=== PATIENT | female | born 1985 | race Caucasian/White ===

== ENCOUNTER 2016-04-19 10:00 | Inpatient (IN) | payer MEDICAID, OTHER ==
[2016-04-13 12:44] VITALS: BMI 28.8
--- NOTE | 2016-04-18 14:21 | P.HPOB ---
History of Present Illness H&P Date: 04/18/16 Chief Complaint: Scheduled repeat section with tubal ligation This is a 31-year-old female 3 para 2 with an estimated date of confinement of 04/25/2016, estimated gestational age of 39 and one sevenths weeks, who presents to labor and delivery for scheduled repeat section with bilateral partial salpingectomy for family planning. She has been feeling good movement. She has been feeling frequent contractions. Her has been complicated by dizziness and shortness of breath. 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 She did have an elevated 1 hour Glucola but her 3 hour Glucola was within normal limits. She has been following a diabetic diet anyways due to low blood sugars. labs: GC/Chlamydia-negative HIV-nonreactive Syphilis antibody-nonreactive blood type-O+ Antibody screen-negative Random glucose-86 Hemoglobin-13.6 One hour Glucola-147 Three-hour Glucola-within normal limits Group B streptococcus-negative Obstetrical history: . History of 2 previous sections. Her first section was at term due to failed induction. Her second section was due to twins. She delivered her second at 35 weeks. Gynecologic history: No history of sexual transmitted diseases. Social history: She is . She works part-time at [employer] Review of Systems Cardiovascular: Reports dyspnea on exertion, Reports lightheadedness, Reports palpitations, Reports shortness of breath Respiratory: Reports dyspnea Gastrointestinal: Reports abdominal pain (Contractions) Genitourinary: Reports pelvic pain, Reports Past Medical History Past Medical History: Asthma, GERD/Reflux Additional Past Medical History / Comment(s): Endometriosis, iron deficiency anemia, frequent UTIs History of Any Multi-Drug Resistant Organisms: None Reported Past Surgical History: Section (2), Cholecystectomy Additional Past Surgical History / Comment(s): LAPAROSCOPY X2, EGD, LEEP procedure Past Anesthesia/Blood Transfusion Reactions: Motion Sickness, Postoperative Nausea & Vomiting (PONV) Past Psychological History: No Psychological Hx Reported Smoking Status: Never smoker Past Alcohol Use History: None Reported Past Drug Use History: None Reported - Past Family History Mother Family Medical History: Hypertension Medications and Allergies Home Medications Medication Instructions Recorded Confirmed Type Cholecalciferol [Vitamin D3] 2,000 unit PO HS 06/19/15 04/13/16 History Ferrous Sulfate [Iron (65 MG 325 mg PO HS 06/19/15 04/13/16 History Elemental)] Pnv with Ca,No.72/Iron/FA [Pnv 1 tab PO HS 10/30/15 04/13/16 History Plus Multivit Tab] Albuterol Inhaler [Ventolin Hfa 1 - 2 puff INHALATION RT-Q6H PRN 12/23/15 History Inhaler] Allergies Allergy/AdvReac Type Severity Reaction Status Date / Time amoxicillin trihydrate Allergy Rash/Hives Verified 04/13/16 12:40 [From Augmentin] cefaclor [From Ceclor] Allergy Rash/Hives Verified 04/13/16 12:40 latex Allergy Rash/Hives Verified 04/13/16 12:40 nitrofurantoin Allergy Rash/Hives Verified 04/13/16 12:40 [From Macrobid] nitrofurantoin Allergy Rash/Hives Verified 04/13/16 12:40 macrocrystalline [From Macrobid] potassium clavulanate Allergy Rash/Hives Verified 04/13/16 12:40 [From Augmentin] Sulfa (Sulfonamide Allergy Rash/Hives Verified 04/13/16 12:40 Antibiotics) Exam Osteopathic Statement: *. No significant issues noted on an osteopathic structural exam other than those noted in the History and Physical/Consult. HEENT: Within normal limits Heart: Regular rate and rhythm Lungs: Clear to auscultation bilaterally Abdomen: Cervix: Closed/70%/out of pelvis heart tones: 140s by Doppler Extremities: Negative Homans Assessment and Plan (1) 39 weeks gestation of Status: Acute (2) Previous delivery affecting Status: Acute (3) Family planning Status: Acute Plan: Proceed with repeat low transverse section with bilateral partial salpingectomy. I have discussed the risks, benefits, and alternative therapies for the above- mentioned procedure and for both sedation/anesthesia as well as necessary blood products administration, if indicated, as they pertain to this patient. The patient has indicated her understanding and acceptance of the risks and procedures discussed.
[2016-04-19] MEDS ORDERED: CITRIC ACID-SODIUM CITRATE 15 ML CUP PO ONE (10:05)
[2016-04-19] MEDS ORDERED: LACTATED RINGERS 1,000 ML IV ONE (10:05)
[2016-04-19] MEDS ORDERED: CLINDAMYCIN 900 MG in DEXTROSE 5% IN WATER 50 ML IVPB STA ×2 (10:05)
[2016-04-19] MEDS ORDERED: LIDOCAINE 1% 20 ML VIAL (10MG/ML) FOR IV START INTRADERMA PRN (10:05)
[2016-04-19 10:51] LABS: Basophils % (A) 0 %; CH 34.9; CHCM 36.5; Eosinophils % (A) 1 %; HCT 39.5 % (34.0-46.0); HDW 3.13; HGB 13.7 gm/dL (11.4-16.0); Large Platelets Flag Moderate; Luc # (Auto) 0.16; Luc % (Auto) 2; Lymphocytes # (A) 1.3 k/uL (1.0-4.8); Lymphocytes % (A) 19 %; MCH 33.3 pg (25.0-35.0); MCHC 34.6 g/dL (31.0-37.0); MCV 96.2 fL (80.0-100.0); Mean Platelet Volume 10.8; Monocytes # (A) 0.5 k/uL (0-1.0); Monocytes % (A) 7 %; Neutrophils # (A) 4.9 k/uL (1.3-7.7); Neutrophils % (A) 71 %; RBC 4.11 m/uL (3.80-5.40); RDW 14.4 % (11.5-15.5); WBC 6.9 k/uL (3.8-10.6)
[2016-04-19 11:11] LABS: Manual Review Performed
[2016-04-19 11:16] LABS: Large Platelets Present
[2016-04-19 11:38] LABS: Glucose,Whole Blood 120 mg/dL (75-99)
[2016-04-19] MEDS: LACTATED RINGERS 1,000 ML IV SCH (11:50)
[2016-04-19] MEDS ORDERED: MIDAZOLAM 2 MG/2 ML VIAL ONE (12:11)
[2016-04-19] MEDS ORDERED: MORPHINE SULFATE (PF) 0.3 MG/0.3 ML SYR ONE (12:11)
[2016-04-19] MEDS ORDERED: OXYTOCIN 10 UNIT/ML 1 ML VIAL IM ONE (12:11)
[2016-04-19] MEDS ORDERED: NALBUPHINE 10 MG/ML AMPUL ONE (12:11)
[2016-04-19] MEDS ORDERED: KETOROLAC 30 MG/ML 1 ML VIAL ONE (12:11)
[2016-04-19] MEDS ORDERED: METOCLOPRAMIDE 5 MG/ML 2 ML VIAL ONE (12:11)
[2016-04-19] MEDS ORDERED: PHENYLEPHRINE-0.9% NACL SYG 1 MG/10 ML SYRINGE ONE (12:11)
[2016-04-19] MEDS ORDERED: DEXAMETHASONE SOD PHOS (MDV) 100 MG/10 ML VIAL ONE (12:11)
[2016-04-19] MEDS ORDERED: diphenhydrAMINE 50 MG/ML 1 ML VIAL ONE (12:11)
[2016-04-19] MEDS ORDERED: ONDANSETRON 4 MG/2 ML VIAL ONE (12:11)
[2016-04-19] MEDS ORDERED: diphenhydrAMINE 25 MG CAP PO PRN (12:46)
[2016-04-19] MEDS ORDERED: diphenhydrAMINE 50 MG CAP PO PRN (12:46)
[2016-04-19] MEDS ORDERED: METOCLOPRAMIDE 5 MG/ML 2 ML VIAL IVP PRN (12:46)
[2016-04-19] MEDS ORDERED: diphenhydrAMINE 50 MG/ML 1 ML VIAL IVP PRN ×3 (12:46→13:02)
[2016-04-19] MEDS ORDERED: ALBUTEROL NEBULIZED 2.5 MG/3 ML INHALATION PRN (12:46)
[2016-04-19] MEDS ORDERED: ZOLPIDEM 5 MG TAB PO PRN (12:46)
[2016-04-19] MEDS ORDERED: Acetaminophen-Codeine 300-30mg TAB PO PRN (12:46)
[2016-04-19] MEDS ORDERED: IPRATROPIUM-ALBUTEROL 3 ML NEB INHALATION PRN (12:46)
[2016-04-19] MEDS ORDERED: NALOXONE 0.4 MG/ML 1 ML VIAL IV PRN (13:02)
[2016-04-19] MEDS ORDERED: MORPHINE SULFATE 4 MG/ML SYRINGE IVP PRN (13:02)
[2016-04-19] MEDS ORDERED: ONDANSETRON 4 MG/2 ML VIAL IVP PRN (13:02)
--- NOTE | 2016-04-19 13:03 | P.OP ---
Date of Procedure: 04/19/16 Preoperative Diagnosis: 1. Intrauterine at 39 and one sevenths weeks. 2. History of previous sections. 3. Family-planning. Postoperative Diagnosis: Same Procedure(s) Performed: Repeat low transverse section with bilateral partial salpingectomy Anesthesia: spinal (Duramorph) Surgeon: Yesenia Kong Trash Truck Driver #1: Madie Zavaleta Estimated Blood Loss (ml): 500 Pathology: other (Placenta, portions of right and left fallopian tubes) Condition: stable Disposition: floor Indications for Procedure: This is a 31-year-old female 3 para 2 at 39 and one sevenths weeks who presents for scheduled repeat section with bilateral partial salpingectomy. Please see history and physical for details of the patient's admission. Operative Findings: A viable female is noted in the vertex presentation with scores of 9 at 1 minute and 9 at 5 minutes and weight of 9 lbs. 2 oz. Normal uterus tubes and ovaries are noted. There was some adherence of the right fallopian tube to the ovary on the right. Description of Procedure: The patient is taken to the operating room where she is placed in the dorsal supine position with leftward tilt after spinal Duramorph anesthesia is given. She is prepped and draped in the normal sterile fashion. Skin was tested and found to be adequately anesthetized. A Pfannenstiel skin incision was made with a scalpel through the previous laparotomy scar. A second knife was used to carry the incision down to the underlying layer of fascia. The fascia was nicked in the midline with a scalpel and then extended laterally bilaterally with Simon scissors. The anterior lip of the fascia was grasped with 2 Ministerio clamps and then dissected off the underlying rectus muscle in the midline with Simon scissors. The inferior aspect of the fascial incision was grasped with 2 Ministerio clamps and dissected off the underlying rectus muscle and the midline with Simon scissors. Next the peritoneum layer was tented up with 2 hemostats and then entered sharply with the scalpel. The incision is extended superiorly and inferiorly with Metzenbaum scissors. Next a DeLee retractor is placed. The vesicouterine peritoneum is entered sharply with Metzenbaum scissors and extended laterally bilaterally with Metzenbaum scissors and then the bladder flap is pushed inferiorly. The lower uterine segment is incised in transverse fashion with the scalpel and then bluntly entered with a hemostat. Clear fluid is noted. The incision was then extended laterally bilaterally with 2 fingers. Next the 's head is delivered through the incision. Nose and mouth are bulb suctioned. The remainder of the infant is easily delivered and placed on mother's abdomen. Cord is clamped and cut. is taken to warmer by nursing staff. Uterine fundus is gently massaged and placenta is delivered manually. Uterus is exteriorized and cleared of all clots and debris. Uterine incision is closed with 0 Vicryl suture in a running locked fashion. A second layer of 0 Vicryl suture is used in a running fashion for hemostasis. Once adequate hemostasis as assured, the vesicouterine peritoneum is reapproximated with 2-0 Vicryl suture in a running fashion. Attention is then turned to the tubes. The right fallopian tube was grasped in the midportion with a hemostat and then the mesosalpinx is entered with Bovie cautery. 0 Vicryl suture is tied 2 times around both the proximal and distal portions of the tube. The knuckle of tube was then removed with Metzenbaum scissors. The ends of the tubes are cauterized with Bovie cautery. Excellent hemostasis is noted. The same procedure is carried out on the left fallopian tube. Posterior cul-de-sac is suctioned of all clots and debris. Uterus is returned to the abdomen. Incision is noted to be hemostatic. Both tubal sites are noted to be hemostatic. Peritoneal layer is closed with 0 Vicryl suture in a running fashion. Muscle layer is reapproximated with 0 Vicryl suture in interrupted fashion. Fascia layer is then closed with 0 PDS suture with 2 sutures meeting in the midline and the knots buried in either side and in the midline. The subcutaneous tissue was then closed with 2-0 Vicryl suture. Skin layer was then closed with becki. All sponge and needle counts are correct. The patient is taken to recovery room in stable condition.
[2016-04-19] MEDS: SENNOSIDES-DOCUSATE SODIUM 1 EACH TAB PO SCH (19:51)
[2016-04-19 20:30] VITALS: RESP 16
[2016-04-20] MEDS: LACTATED RINGERS 1,000 ML IV SCH ×3 (00:10→18:58)
[2016-04-20] MEDS: SIMETHICONE 80 MG CHEWABLE PO PRN (02:02)
[2016-04-20] MEDS: KETOROLAC 30 MG/ML 1 ML VIAL IVP PRN ×2 (02:02→08:28)
--- NOTE | 2016-04-20 08:15 | P.PNOBGPC ---
Subjective - Subjective Principal diagnosis: Status post repeat section with tubal postoperative day #1 Interval history: Patient is doing okay. She is still been unable to urinate. She has been straight cathed a couple times. She is ambulating without difficulty. She is passing flatus but no bowel movement yet. She is breast-feeding. Lochia is decreasing. Pain is fairly well controlled. Patient reports: Reports appetite normal, Reports pain well controlled, Reports ambulating normally [place]: doing well, nursing well Objective - Vital Signs Latest vital signs: Vital Signs Temp Pulse Resp BP Pulse Ox 04/20/16 05:59 98 04/20/16 04:00 97.9 F 65 16 88/56 98 04/20/16 01:46 98 04/20/16 00:00 98.4 F 67 16 96/67 98 04/19/16 22:00 98 04/19/16 20:00 98 F 79 16 107/67 97 04/19/16 15:00 98.9 F 75 17 110/64 98 04/19/16 14:30 98.5 F 75 16 108/67 97 04/19/16 14:04 72 17 102/56 96 04/19/16 13:45 71 17 97/65 96 04/19/16 13:30 75 16 126/58 97 04/19/16 13:19 68 17 91/56 96 04/19/16 13:00 75 17 103/63 97 04/19/16 10:13 97.9 F 93 17 120/62 98 Intake and Output 04/19/16 04/20/16 04/20/16 22:59 06:59 14:59 Output Total 1100 700 Balance -1100 -700 Output: Urine 1100 700 Uretheral ([place]) 300 700 Other: # Voids 0 - Exam Abdomen: Present: normal appearance, soft (Positive bowel sounds 4). Absent: distention, tenderness Incision: Present: normal, dry, intact. Absent: erythematous Uterus: Present: normal, firm. Absent: tenderness - Labs Labs: Abnormal Lab Results - Last 24 Hours (Table) 04/19/16 04/19/16 Range/Units 10:32 11:36 Plt Count 106 L (150-450) k/uL POC Glucose (mg/dL) 120 H (75-99) mg/dL Assessment and Plan (1) 39 weeks gestation of Current Visit: Yes Status: Acute Code(s): Z3A.39 - 39 WEEKS GESTATION OF SNOMED Code(s): 80863324 (2) Previous delivery affecting Narrative/Plan: Impression is status post repeat low transverse section with bilateral partial salpingectomy postoperative day #1. Plan is to continue with postoperative care today. Will slowly advance diet as tolerated. We'll continue to straight cath if needed. Current Visit: Yes Status: Acute Code(s): O34.219 - MATERNAL CARE FOR UNSP TYPE SCAR FROM PREVIOUS DEL SNOMED Code(s): 648013272 (3) Family planning Current Visit: Yes Status: Acute Code(s): Z30.09 - ENCOUNTER FOR OTH GENERAL CNSL AND ADVICE ON CONTRACEPTION SNOMED Code(s): 31500819
--- NOTE | 2016-04-20 08:21 | P.PN ---
Progress Note - Text Date: 04/20/2016 Time: 0 658 The patient is status post section Vital signs stable VAS: 0-10 Patient has no complaints of pain. The patient incurred some minimal itching yesterday, this itching is now subsiding. Pain meds to be managed by service.
[2016-04-20] MEDS: SENNOSIDES-DOCUSATE SODIUM 1 EACH TAB PO SCH ×2 (08:25→21:02)
[2016-04-20 10:15] LABS: Basophils % (A) 0 %; CH 34.8; CHCM 35.4; Eosinophils % (A) 1 %; HCT 33.1 % (34.0-46.0); HDW 3.02; HGB 11.3 gm/dL (11.4-16.0); Large Platelets Flag Slight; Luc # (Auto) 0.21; Luc % (Auto) 3; Lymphocytes # (A) 0.9 k/uL (1.0-4.8); Lymphocytes % (A) 12 %; MCH 33.8 pg (25.0-35.0); MCHC 34.2 g/dL (31.0-37.0); MCV 98.8 fL (80.0-100.0); Mean Platelet Volume 10.3; Monocytes # (A) 0.6 k/uL (0-1.0); Monocytes % (A) 7 %; Neutrophils # (A) 5.9 k/uL (1.3-7.7); Neutrophils % (A) 77 %; RBC 3.35 m/uL (3.80-5.40); RDW 14.4 % (11.5-15.5); WBC 7.6 k/uL (3.8-10.6); WBC (Perox) 7.98
[2016-04-20] MEDS: IBUPROFEN 600 MG TAB PO PRN (18:37)
[2016-04-20] MEDS: OXYTOCIN 30 UNITS/500 ML NS 30 UNIT in SALINE 1 500ML.BAG IV SCH (19:21)
[2016-04-20] MEDS: ACETAMINOPHEN TAB 325 MG TAB PO PRN (21:05)
[2016-04-21] MEDS: IBUPROFEN 600 MG TAB PO PRN ×3 (01:45→23:31)
[2016-04-21] MEDS: ACETAMINOPHEN TAB 325 MG TAB PO PRN (06:36)
[2016-04-21] MEDS: SENNOSIDES-DOCUSATE SODIUM 1 EACH TAB PO SCH ×2 (08:03→19:36)
--- NOTE | 2016-04-21 08:59 | P.PNOBGPC ---
Subjective - Subjective Principal diagnosis: Status post section postoperative day #2 Interval history: Patient is doing okay. She is occasionally dizzy. She did have a little oozing from her incision yesterday but is stopped today. She is decreasing. Pain is fairly well controlled with ibuprofen and Tylenol. She is passing flatus but no bowel movement yet. She is urinating without difficulty at this time. She is breast-feeding. Patient reports: Reports appetite normal, Reports voiding normally, Reports pain well controlled, Reports ambulating normally : doing well, nursing well Objective - Vital Signs Latest vital signs: Vital Signs Temp Pulse Resp BP 04/21/16 07:55 98.0 F 74 16 88/54 04/21/16 00:00 98.6 F 85 16 96/55 04/20/16 15:55 98.3 F 91 16 109/60 04/20/16 12:00 98.4 F 83 16 118/82 Intake and Output 04/20/16 04/21/16 04/21/16 22:59 06:59 14:59 Intake Total 600 Output Total 800 Balance -800 600 Intake: Oral 600 Output: Urine 800 Other: # Voids 2 1 - Exam Extremities: Present: normal Abdomen: Present: normal appearance, soft. Absent: distention, tenderness Incision: Present: normal, dry, intact Uterus: Present: normal, firm. Absent: tenderness - Labs Labs: Abnormal Lab Results - Last 24 Hours (Table) 04/20/16 Range/Units 09:54 RBC 3.35 L (3.80-5.40) m/uL Hgb 11.3 L (11.4-16.0) gm/dL Hct 33.1 L (34.0-46.0) % Plt Count 78 L (150-450) k/uL Lymphocytes # 0.9 L (1.0-4.8) k/uL Assessment and Plan (1) 39 weeks gestation of Current Visit: Yes Status: Acute Code(s): Z3A.39 - 39 WEEKS GESTATION OF SNOMED Code(s): 78919799 (2) Previous delivery affecting Narrative/Plan: Impression is status post repeat section with tubal ligation postoperative day #2. Plan is to continue with postoperative care today. Anticipate discharge home tomorrow. Current Visit: Yes Status: Acute Code(s): O34.219 - MATERNAL CARE FOR UNSP TYPE SCAR FROM PREVIOUS DEL SNOMED Code(s): 353580048 (3) Family planning Current Visit: Yes Status: Acute Code(s): Z30.09 - ENCOUNTER FOR OTH GENERAL CNSL AND ADVICE ON CONTRACEPTION SNOMED Code(s): 44683250
[2016-04-21] MEDS: Acetaminophen-Codeine 300-30mg TAB PO PRN (14:11)
[2016-04-21] MEDS: SIMETHICONE 80 MG CHEWABLE PO PRN (23:32)
[2016-04-22] MEDS: IBUPROFEN 600 MG TAB PO PRN (05:38)
[2016-04-22] MEDS: SENNOSIDES-DOCUSATE SODIUM 1 EACH TAB PO SCH (08:23)
[2016-04-22] MEDS: Acetaminophen-Codeine 300-30mg TAB PO PRN (08:25)
--- NOTE | 2016-04-22 08:51 | P.DS ---
Providers Date of admission: 04/19/16 10:00 Expected date of discharge: 04/22/16 Attending physician: Yesenia Kong Primary care physician: Stated None - Discharge Diagnosis(es) (1) 39 weeks gestation of Current Visit: Yes Status: Acute (2) Previous delivery affecting Current Visit: Yes Status: Acute (3) Family planning Current Visit: Yes Status: Acute Hospital Course: This is a 31-year-old female 3 para 2 who presented for scheduled repeat section with tubal ligation on 04/19/2016. She underwent the above-noted procedure and delivered a viable female infant with scores of 9 at 1 minute and 9 at 5 minutes and weight of 9 lbs. 2 oz. Her postoperative course has been essentially uncomplicated. She initially did have some dizziness that has resolved. Pain is fairly well controlled with ibuprofen and Tylenol 3. She is breast-feeding. Lochia is decreasing. She is passing flatus but no bowel movement yet. Vital signs are stable. Abdomen is soft with positive bowel sounds 4. Incision is clean dry and intact. There was a small amount of dried blood on the matt-pad covering over the incision in the midline. Extremities show negative Homans. Impression is status pos repeat section with bilateral partial salpingectomy postoperative day # 3. Plan is to discharge home today. Grawn will be removed and Steri-Strips placed prior to discharge. Routine postoperative and instructions are given. She will be given a prescription for ibuprofen, Tylenol No. 3, and a breast pump. She is advised follow-up in the office in approximately 1-2 weeks for a postoperative check and in 6 weeks for check. She is advised to call the office if she has any further questions or concerns prior to her appointment time. Procedures: Repeat low transverse section with bilateral partial salpingectomy on 04/19/2016 Patient Condition at Discharge: Stable Plan - Discharge Summary New Discharge Prescriptions: Acetaminophen-Codeine 300-30mg [Tylenol w/codeine #3] 1 each PO Q4HR PRN #30 tab PRN Reason: Mild Pain Ibuprofen [Motrin] 600 mg PO Q6HR PRN #60 tab PRN Reason: Mild Pain Or Fever >= 100.5 Discharge Medication List Cholecalciferol [Vitamin D3] 2,000 unit PO HS 06/19/15 [History] Ferrous Sulfate [Iron (65 MG Elemental)] 325 mg PO HS 06/19/15 [History] Pnv with Ca,No.72/Iron/FA [Pnv Plus Multivit Tab] 1 tab PO HS 10/30/15 [History] Albuterol Inhaler [Ventolin Hfa Inhaler] 1 - 2 puff INHALATION RT-Q6H PRN [History] Ipratropium-Albuterol Nebulize [Duoneb 0.5 mg-3 mg/3 ml Soln] 3 ml INHALATION Q6HR PRN #10 neb 03/25/16 [Rx] Acetaminophen-Codeine 300-30mg [Tylenol w/codeine #3] 1 each PO Q4HR PRN #30 tab 04/22/16 [Rx] Ibuprofen [Motrin] 600 mg PO Q6HR PRN #60 tab 04/22/16 [Rx] Follow up Appointment(s)/Referral(s): Yesenia Kong DO [Doctor of Osteopathic Medicine] - 1 Week (Postoperative check in 1-2 weeks check in 6 weeks) Activity/Diet/Wound Care/Special Instructions: Instructions 1. Do not begin any exercise program for 3 weeks. 2. Do not resume sexual relations for 3 weeks or longer if uncomfortable. 3. You may take tub baths or showers at any time. 4. You may use tampons if desired after 3 weeks. 5. Keep the area of episiotomy (stitches) clean and dry. 6. If you are not nursing, wear a good fitting, supportive bra during the day and limit fluid intake for at least 1 week to prevent breast engorgement. 7. Call the office, [phone], within the next week to make appointment for your 6 week checkup if it has not already been made. 8. Report any of the following occurrences to the doctor promptly: a. Heavy, excessive bleeding b. Chills, fever c. Burning or frequency of urination d. Pain or redness and breasts if nursing e. Increasing pain or swelling in episiotomy (stitches). In addition to the above instructions, the following additional should be followed: 1. No heavy lifting or straining (exercising) until after 6 week checkup. 2. Keep abdominal incision clean and dry: You may wear a dressing if more comfortable. 3. Make office appointment for 10 days after going home or as instructed by her doctor. Discharge Disposition: HOME SELF-CARE
[2016-04-22 08:54] VITALS: BP 112/68; PULSE 72; TEMP 98.3
== END 2016-04-22 13:10 | disposition home or self-care (01) | DRG 766 ==
LOC: 4FBP 10:00
PROVIDERS: ADMIT Obstetrics & Gynecology; ATTEND Obstetrics & Gynecology
PROC: 0UB70ZZ Excision of Bilateral Fallopian Tubes, Open Approach (ICD-10-PCS; principal; 2016-04-19 12:00)
PROC: 10D00Z1 Extraction of Products of Conception, Low, Open Approach (ICD-10-PCS; principal; 2016-04-19 12:00)
DX: O34.211 Maternal care for low transverse scar from previous cesarean delivery (principal); J45.909 Unspecified asthma, uncomplicated; Z37.0 Single live birth; O99.52 Diseases of the respiratory system complicating childbirth; Z3A.39 39 weeks gestation of pregnancy
CPT/HCPCS: 85025; 86850; 86900; 86901; 88302; 88307

== ENCOUNTER 2016-05-24 12:20 | Emergency (ER) | payer MEDICAID, OTHER ==
[2016-05-24] MEDS ORDERED: IPRATROPIUM-ALBUTEROL 3 ML NEB INHALATION STA (13:20)
--- NOTE | 2016-05-24 13:25 | ED ---
General Adult HPI - General Chief complaint: Upper Respiratory Infection Stated complaint: SOB, Chest Congestion Time Seen by Provider: 05/24/16 13:08 Source: patient, family, RN notes reviewed, old records reviewed Mode of arrival: ambulatory Limitations: no limitations - History of Present Illness Initial comments: Chief complaint and history of present illness a 31-year-old female here with family. Patient reports for several weeks been having a duct of cough white to yellow in color. And discomfort to her chest with sensation of needing updrafts daily. She is only using her rescue inhaler lately. Denies fever lately. - Related Data Home Medications Medication Instructions Recorded Confirmed Cholecalciferol [Vitamin D3] 2,000 unit PO DAILY 06/19/15 05/24/16 Ferrous Sulfate [Iron (65 MG 325 mg PO DAILY 06/19/15 05/24/16 Elemental)] Pnv with Ca,No.72/Iron/FA [Pnv 1 tab PO HS 10/30/15 05/24/16 Plus Multivit Tab] Albuterol Inhaler [Ventolin Hfa 2 puff INHALATION RT-Q6H PRN 12/23/15 05/24/16 Inhaler] Ibuprofen [Motrin] 400 mg PO BID PRN 05/24/16 05/24/16 Ipratropium-Albuterol Nebulize 3 ml INHALATION RT-Q6H PRN 05/24/16 05/24/16 [Duoneb 0.5 mg-3 mg/3 ml Soln] Previous Rx's Medication Instructions Recorded Azithromycin [Zithromax Z-pack] 250 mg PO DIRECTED #6 tab 05/24/16 Famotidine [Pepcid] 20 mg PO DAILY #30 tablet 05/24/16 Ipratropium-Albuterol Nebulize 3 ml INHALATION TID #25 neb 05/24/16 [Duoneb 0.5 mg-3 mg/3 ml Soln] Allergies Allergy/AdvReac Type Severity Reaction Status Date / Time amoxicillin trihydrate Allergy Rash/Hives Verified 05/24/16 13:26 [From Augmentin] cefaclor [From Ceclor] Allergy Rash/Hives Verified 05/24/16 13:26 latex Allergy Rash/Hives Verified 05/24/16 13:26 nitrofurantoin Allergy Rash/Hives Verified 05/24/16 13:26 [From Macrobid] nitrofurantoin Allergy Rash/Hives Verified 05/24/16 13:26 macrocrystalline [From Macrobid] potassium clavulanate Allergy Rash/Hives Verified 05/24/16 13:26 [From Augmentin] Sulfa (Sulfonamide Allergy Rash/Hives Verified 05/24/16 13:26 Antibiotics) Review of Systems ROS Statement: Those systems with pertinent positive or pertinent negative responses have been documented in the HPI. Review of systems. No headache or visual acuity changes no sore throat. No sinus congestion. Patient reports she has a heaviness the chest when she coughs and chest wall pain with coughing oftentimes brings up white phlegm and yellow phlegm for the past several weeks. No recent chest x-rays. No abdominal pain no nausea no vomiting no diarrhea no neuro deficits complained of. Past medical problems asthma, GERD, endometriosis, iron deficiency. The patient 's surgeries include 3 C-sections, cholecystectomy upper scopic surgeries twice for endometriosis. And bilateral tubal ligation approximately 5 weeks ago. Patient's family history positive for strokes. Also cancers include: Breast and lungs. Patient was advised to discuss colonoscopies with her family physician. Patient has ALLERGIES to amoxicillin, Augmentin, cefaclor, latex, nitrofurantoin 20. Nonsmoker nondrinker ROS Other: All systems not noted in ROS Statement are negative. Past Medical History Past Medical History: Asthma, GERD/Reflux Additional Past Medical History / Comment(s): Endometriosis, iron deficiency anemia, frequent UTIs History of Any Multi-Drug Resistant Organisms: None Reported Past Surgical History: Section, Cholecystectomy Additional Past Surgical History / Comment(s): LAPAROSCOPY X2, EGD, LEEP procedure, wisdom teeth 2009 Past Anesthesia/Blood Transfusion Reactions: Motion Sickness, Postoperative Nausea & Vomiting (PONV) Past Psychological History: No Psychological Hx Reported Smoking Status: Never smoker Past Alcohol Use History: None Reported Past Drug Use History: None Reported - Past Family History Mother Family Medical History: Hypertension General Exam - General Exam Comments Initial Comments: General: The patient is awake and alert, complaining of a productive cough. Chest wall discomfort. Vital signs show temperature 98.5 pulse 69 respiratory rate 18 pulse ox on percent room air blood pressure 107/71. Eye: Pupils are equal, round and reactive to light, extra-ocular movements are intact ; there is normal conjunctiva bilaterally. No signs of icterus. Ears, nose, mouth and throat: There are moist mucous membranes and no oral lesions. Neck: The neck is supple, there is no tenderness . Cardiovascular: There is a regular rate and rhythm. No murmur, rub or gallop is appreciated. Respiratory: Lungs are clear to auscultation, respirations are non-labored, breath sounds are equal. No wheezes, stridor, rales, or rhonchi. Occasional coughing fits which increases chest wall pain. Complains productive cough. Gastrointestinal: Still healing from a 5 weeks ago. Back: There is no tenderness to palpation in the midline. There is no obvious deformity. No rashes noted. Musculoskeletal: Normal ROM, no tenderness, There is no pedal edema. There is no calf tenderness or swelling. Sensation intact. Neurological: No evidence of any neuro deficits. Skin: Skin is warm and dry and no rashes or lesions are noted. Limitations: no limitations Course Vital Signs 05/24/16 05/24/16 12:49 13:57 Temperature 98.5 F Pulse Rate 69 68 Respiratory 18 Rate Blood Pressure 107/71 O2 Sat by Pulse 100 Oximetry Medical Decision Making - Medical Decision Making Chest x-ray was done and reviewed by radiologist his impression of the lungs are clear and there is no pneumothorax, pleural effusion, or focal pneumonia. Surgical clips in the right upper quadrant. Impression; no acute process. As read by Dr. Wills Discussed viral and bacterial problems such as bronchitis or ALLERGIC etiologies as well as GERD and reflux of acid. The patient will be placed on Z- Delvin, Pepcid and advised to use antacids on a when necessary basis. Told to follow-up with family physician. Also to use DuoNeb twice a day to 3 times a day as as needed Disposition Clinical Impression: Asthmatic bronchitis Disposition: HOME SELF-CARE Condition: Fair Instructions: Upper Respiratory Infection (ED) Additional Instructions: Increase fluids. Use Zantac or Pepcid daily. Use antacids as needed. Complete Z-Delvin. Use DuoNeb's 2-3 times a day. Follow-up family physician Prescriptions: Azithromycin [Zithromax Z-pack] 250 mg PO DIRECTED #6 tab Famotidine [Pepcid] 20 mg PO DAILY #30 tablet Ipratropium-Albuterol Nebulize [Duoneb 0.5 mg-3 mg/3 ml Soln] 3 ml INHALATION TID #25 neb Time of Disposition: 14:13
--- NOTE | 2016-05-24 14:04 | XR ---
EXAMINATION TYPE: XR chest 2V DATE OF EXAM: 05/24/2016 1:55 PM COMPARISON: 06/19/2015 TECHNIQUE: PA and lateral views submitted. HISTORY: Cough and congestion FINDINGS: The lungs are clear and there is no pneumothorax, pleural effusion, or focal pneumonia. Surgical cli ps in the right upper quadrant. IMPRESSION: 1. No acute process.
[2016-05-24 14:10] VITALS: PULSE 70
[2016-05-24 14:22] VITALS: BP 108/53; RESP 14; TEMP 98.7
== END 2016-05-24 14:24 | disposition home or self-care (01) ==
LOC: EC 12:20
DX: J45.909 Unspecified asthma, uncomplicated (principal); J06.9 Acute upper respiratory infection, unspecified; R07.89 Other chest pain; K21.9 Gastro-esophageal reflux disease without esophagitis; D50.9 Iron deficiency anemia, unspecified; Z79.899 Other long term (current) drug therapy; Z88.0 Allergy status to penicillin; Z91.040 Latex allergy status; Z88.2 Allergy status to sulfonamides; Z88.1 Allergy status to other antibiotic agents
CPT/HCPCS: 71020; 94640; 99284

== ENCOUNTER 2016-06-01 12:54 | Emergency (ER) | payer MEDICAID ==
[2016-06-01] MEDS ORDERED: SODIUM CHLORIDE 0.9% 1,000 ML IV STA (13:45)
--- NOTE | 2016-06-01 13:59 | ED ---
General Adult HPI - General Chief complaint: Syncope Stated complaint: Syncope, RODNEY Time Seen by Provider: 06/01/16 13:37 Source: patient, RN notes reviewed Mode of arrival: ambulatory Limitations: no limitations - History of Present Illness Initial comments: 31-year-old female presents the emergency department with a chief complaint of continued cough. Patient states that she's been struggling with this cough shortness of breath for the last few months. Patient states she has moved from those she is is gone away and come back. Patient states she was getting these coughing fits. Patient states her coughing. Was so bad today her vision started to go black she started to get some numbness and tingling during it so she was concerned. Patient states she did not actually pass out she just felt her vision started to go black. Patient states there is no headache at this. Patient denies any chest pain. Patient states she was coughing during this period. Patient states she has had some kind of unusual sensations to her head and face sometimes that she felt that she became ill. Patient denies any fever chills with this. Patient states that she was concerned due to her continued symptoms and cough so she thought that she should be evaluated. Patient states she is not currently having any other symptoms at this time. Patient denies any recent fever, chills, chest pain, back pain, abdominal pain, nausea vomiting, numbness or tingling, dysuria or hematuria, constipation or diarrhea, headaches or visual changes, or any other current symptoms. - Related Data Home Medications Medication Instructions Recorded Confirmed Cholecalciferol [Vitamin D3] 2,000 unit PO DAILY 06/19/15 06/01/16 Ferrous Sulfate [Iron (65 MG 325 mg PO DAILY 06/19/15 06/01/16 Elemental)] Pnv with Ca,No.72/Iron/FA [Pnv 1 tab PO HS 10/30/15 06/01/16 Plus Multivit Tab] Ibuprofen [Motrin] 400 mg PO BID PRN 05/24/16 06/01/16 Ipratropium-Albuterol Nebulize 3 ml INHALATION RT-QID PRN 05/24/16 06/01/16 [Duoneb 0.5 mg-3 mg/3 ml Soln] Previous Rx's Medication Instructions Recorded Benzonatate [Tessalon Perles] 100 mg PO TID #20 cap 06/01/16 Pseudoephedrine 12Hr [Sudafed 12 120 mg PO Q12H #20 tablet.er 06/01/16 Hour] Allergies Allergy/AdvReac Type Severity Reaction Status Date / Time amoxicillin trihydrate Allergy Rash/Hives Verified 06/01/16 14:09 [From Augmentin] cefaclor [From Ceclor] Allergy Rash/Hives Verified 06/01/16 14:09 latex Allergy Rash/Hives Verified 06/01/16 14:09 nitrofurantoin Allergy Rash/Hives Verified 06/01/16 14:09 [From Macrobid] nitrofurantoin Allergy Rash/Hives Verified 06/01/16 14:09 macrocrystalline [From Macrobid] potassium clavulanate Allergy Rash/Hives Verified 06/01/16 14:09 [From Augmentin] Sulfa (Sulfonamide Allergy Rash/Hives Verified 06/01/16 14:09 Antibiotics) Review of Systems ROS Statement: Those systems with pertinent positive or pertinent negative responses have been documented in the HPI. ROS Other: All systems not noted in ROS Statement are negative. Past Medical History Past Medical History: Asthma, GERD/Reflux Additional Past Medical History / Comment(s): Endometriosis, iron deficiency anemia, frequent UTIs History of Any Multi-Drug Resistant Organisms: None Reported Past Surgical History: Section, Cholecystectomy Additional Past Surgical History / Comment(s): LAPAROSCOPY X2, EGD, LEEP procedure, wisdom teeth 2009 Past Anesthesia/Blood Transfusion Reactions: Motion Sickness, Postoperative Nausea & Vomiting (PONV) Past Psychological History: No Psychological Hx Reported Smoking Status: Never smoker Past Alcohol Use History: None Reported Past Drug Use History: None Reported - Past Family History Mother Family Medical History: Hypertension General Exam - General Exam Comments Initial Comments: General: The patient is awake and alert, in no distress, and does not appear acutely ill. Eye: Pupils are equal, round and reactive to light, extra-ocular movements are intact; there is normal conjunctiva bilaterally. No signs of icterus. Ears, nose, mouth and throat: There are moist mucous membranes and no oral lesions. Neck: The neck is supple, there is no tenderness. Cardiovascular: There is a regular rate and rhythm. No murmur, rub or gallop is appreciated. Respiratory: Lungs are clear to auscultation, respirations are non-labored, breath sounds are equal. No wheezes, stridor, rales, or rhonchi. Gastrointestinal: Soft, non-distended, non-tender abdomen without masses or organomegaly noted. There is no rebound or guarding present. No CVA tenderness. Bowel sounds are unremarkable. Back: There is no tenderness to palpation in the midline. There is no obvious deformity. No rashes noted. Musculoskeletal: Normal ROM, no tenderness, There is no pedal edema. There is no calf tenderness or swelling. Sensation intact. Pulses equal bilaterally 2+. Neurological: CN II-XII intact, There are no obvious motor or sensory deficits. Coordination appears grossly intact. Speech is normal. Skin: Skin is warm and dry and no rashes or lesions are noted. Psychiatric: Cooperative, appropriate mood & affect, normal judgment. Limitations: no limitations Course Vital Signs 06/01/16 13:05 Temperature 98.8 F Pulse Rate 84 Respiratory 18 Rate Blood Pressure 109/72 O2 Sat by Pulse 99 Oximetry Medical Decision Making - Medical Decision Making 31-year-old female presents emergency Department with a chief complaint of cough. At this time we discussed patient's symptoms are most likely due due to congestion. We discussed this started [id number] Sudafed to help with the congestion will also FELT FOR THE COUGH. OTHERWISE LABORATORY IS BENIGN AND NEGATIVE. WE DISCUSSED PATIENT'S EPISODE OF BLACKING WAS NOT SYNCOPE IT WAS DUE TO THE INTENSE COUGHING. WE DID DISCUSS THAT THAT IS STABBING IN THE HANDS MOST LIKELY DUE TO ANXIETY AND THE PATIENT DOES HAVE A HISTORY OF BEING ON ANXIETY MEDS PRIOR TO GIVING . THIS TIME WE DID DISCUSS FOLLOW-UP WITH HER DOCTOR RETURN PARAMETERS AND ALL THE QUESTIONS. SHE STATES SHE UNDERSTOOD SHE IS IN AGREEMENT WITH PLAN. PATIENT WILL BE DISCHARGED HOME. - Lab Data Result diagrams: 06/01/16 14:17 06/01/16 14:17 Lab Results 06/01/16 06/01/16 06/01/16 Range/Units 14:17 14:17 14:17 WBC 5.1 (3.8-10.6) k/uL RBC 4.45 (3.80-5.40) m/uL Hgb 14.5 D (11.4-16.0) gm/dL Hct 41.5 (34.0-46.0) % MCV 93.3 D (80.0-100.0) fL MCH 32.5 (25.0-35.0) pg MCHC 34.9 (31.0-37.0) g/dL RDW 12.5 (11.5-15.5) % Plt Count 145 L D (150-450) k/uL Neutrophils % 66 % Lymphocytes % 26 % Monocytes % 5 % Eosinophils % 1 % Basophils % 1 % Neutrophils # 3.4 (1.3-7.7) k/uL Lymphocytes # 1.3 (1.0-4.8) k/uL Monocytes # 0.2 (0-1.0) k/uL Eosinophils # 0.0 (0-0.7) k/uL Basophils # 0.0 (0-0.2) k/uL Sodium 141 (137-145) mmol/L Potassium 3.9 (3.5-5.1) mmol/L Chloride 104 (98-107) mmol/L Carbon Dioxide 25 (22-30) mmol/L Anion Gap 12 mmol/L BUN 12 (7-17) mg/dL Creatinine 0.75 (0.52-1.04) mg/dL Est GFR (MDRD) Af Amer >60 (>60 ml/min/1.73 sqM) Est GFR (MDRD) Non-Af >60 (>60 ml/min/1.73 sqM) Glucose 120 H (74-99) mg/dL Calcium 9.3 (8.4-10.2) mg/dL Total Bilirubin 1.0 (0.2-1.3) mg/dL AST 27 (14-36) U/L ALT 33 (9-52) U/L Alkaline Phosphatase 75 (38-126) U/L Total Protein 7.3 (6.3-8.2) g/dL Albumin 4.6 (3.5-5.0) g/dL Amylase 65 (30-110) U/L Lipase 68 (23-300) U/L Urine Color Light Yellow Urine Appearance Cloudy H (Clear) Urine pH 6.5 (5.0-8.0) Ur Specific [place] 1.007 (1.001-1.035) Urine Protein Negative (Negative) Urine Glucose (UA) Negative (Negative) Urine Ketones Negative (Negative) Urine Blood Negative (Negative) Urine Nitrate Negative (Negative) Urine Bilirubin Negative (Negative) Urine Urobilinogen <2.0 (<2.0) mg/dL Ur Leukocyte Esterase Negative (Negative) Urine WBC <1 (0-5) /hpf Ur Squamous Epith Cells 3 (0-4) /hpf Urine Bacteria Occasional H (None) /hpf Urine HCG, Qual (Not Detectd) 06/01/16 Range/Units 14:17 WBC (3.8-10.6) k/uL RBC (3.80-5.40) m/uL Hgb (11.4-16.0) gm/dL Hct (34.0-46.0) % MCV (80.0-100.0) fL MCH (25.0-35.0) pg MCHC (31.0-37.0) g/dL RDW (11.5-15.5) % Plt Count (150-450) k/uL Neutrophils % % Lymphocytes % % Monocytes % % Eosinophils % % Basophils % % Neutrophils # (1.3-7.7) k/uL Lymphocytes # (1.0-4.8) k/uL Monocytes # (0-1.0) k/uL Eosinophils # (0-0.7) k/uL Basophils # (0-0.2) k/uL Sodium (137-145) mmol/L Potassium (3.5-5.1) mmol/L Chloride (98-107) mmol/L Carbon Dioxide (22-30) mmol/L Anion Gap mmol/L BUN (7-17) mg/dL Creatinine (0.52-1.04) mg/dL Est GFR (MDRD) Af Amer (>60 ml/min/1.73 sqM) Est GFR (MDRD) Non-Af (>60 ml/min/1.73 sqM) Glucose (74-99) mg/dL Calcium (8.4-10.2) mg/dL Total Bilirubin (0.2-1.3) mg/dL AST (14-36) U/L ALT (9-52) U/L Alkaline Phosphatase (38-126) U/L Total Protein (6.3-8.2) g/dL Albumin (3.5-5.0) g/dL Amylase (30-110) U/L Lipase (23-300) U/L Urine Color Urine Appearance (Clear) Urine pH (5.0-8.0) Ur Specific [place] (1.001-1.035) Urine Protein (Negative) Urine Glucose (UA) (Negative) Urine Ketones (Negative) Urine Blood (Negative) Urine Nitrate (Negative) Urine Bilirubin (Negative) Urine Urobilinogen (<2.0) mg/dL Ur Leukocyte Esterase (Negative) Urine WBC (0-5) /hpf Ur Squamous Epith Cells (0-4) /hpf Urine Bacteria (None) /hpf Urine HCG, Qual Not Detected (Not Detectd) - Radiology Data Radiology results: report reviewed, image reviewed Disposition Clinical Impression: Nasal congestion, Cough, Anxiety Disposition: HOME SELF-CARE Condition: Stable Instructions: Chronic Cough (ED) Additional Instructions: Please use medication as discussed. Please follow up with family doctor if symptoms have not improved over the next two days. Please return to the emergency room if your symptoms increase or worsen or for any other concerns. Prescriptions: Benzonatate [Tessalon Perles] 100 mg PO TID #20 cap Pseudoephedrine 12Hr [Sudafed 12 Hour] 120 mg PO Q12H #20 tablet.er Referrals: None,Stated [Primary Care Provider] - 1-2 days Sophia Bustillo MD [STAFF PHYSICIAN] - 1-2 days Time of Disposition: 15:29
[2016-06-01 14:45] LABS: Appearance,Urine Cloudy (Clear); Bacteria,Urine Occasional /hpf; Basophils % (A) 1 %; Bilirubin,Urine Negative (Negative); CH 33.9; CHCM 36.5; Eosinophils % (A) 1 %; Glucose,Urine (UA) Negative (Negative); HCT 41.5 % (34.0-46.0); HDW 2.95; Ketones,Urine Negative (Negative); Leukocyte Esterase,Urine Negative (Negative); Luc % (Auto) 2; Lymphocytes # (A) 1.3 k/uL (1.0-4.8); Lymphocytes % (A) 26 %; MCH 32.5 pg (25.0-35.0); MCHC 34.9 g/dL (31.0-37.0); Mean Platelet Volume 9.2; Monocytes # (A) 0.2 k/uL (0-1.0); Monocytes % (A) 5 %; Neutrophils # (A) 3.4 k/uL (1.3-7.7); Neutrophils % (A) 66 %; Nitrite,Urine Negative (Negative); PH, Urine 6.5 (5.0-8.0); Particle Count 1351; Protein,Urine Negative (Negative); RBC 4.45 m/uL (3.80-5.40); RDW 12.5 % (11.5-15.5); Specific Gravity,Urine 1.007 (1.001-1.035); Squamous Epithelial Cell,Urine 3 /hpf (0-4); UA Billing (MACRO vs. MICRO) MICRO; Urobilinogen,Urine <2.0 mg/dL (<2.0); WBC 5.1 k/uL (3.8-10.6); WBC (Perox) 5.18; WBC,Urine <1 /hpf (0-5)
[2016-06-01 14:46] LABS: HGB 14.5 gm/dL (11.4-16.0); MCV 93.3 fL (80.0-100.0)
[2016-06-01 14:47] LABS: ALT 33 U/L (9-52); AST 27 U/L (14-36); Alkaline Phosphatase 75 U/L (38-126); Amylase 65 U/L (30-110); Anion Gap 12 mmol/L; Blood Urea Nitrogen 12 mg/dL (7-17); Calcium 9.3 mg/dL (8.4-10.2); Carbon Dioxide 25 mmol/L (22-30); Chloride 104 mmol/L (98-107); Glucose 120 mg/dL (74-99); Non-African American GFR(MDRD) >60 (>60 ml/min/1.73 sqM); Potassium 3.9 mmol/L (3.5-5.1); Sodium 141 mmol/L (137-145); Total Protein 7.3 g/dL (6.3-8.2)
--- NOTE | 2016-06-01 15:10 | XR ---
EXAMINATION TYPE: XR chest 2V DATE OF EXAM: 06/01/2016 2:49 PM COMPARISON: 05/24/2016 HISTORY: Cough TECHNIQUE: Frontal and lateral views of the chest are obtained. FINDINGS: There is no focal air space opacity, pleural effusion, or pneumothorax seen. The cardiac silhouette size is within normal limits. The osseous structures are intact. IMPRESSION: No acute cardiopulmonary process.
[2016-06-01 15:43] VITALS: BP 102/60; PULSE 70; RESP 16; TEMP 97.4
== END 2016-06-01 15:43 | disposition home or self-care (01) ==
LOC: EC 12:54
DX: F41.9 Anxiety disorder, unspecified (principal); R05 Cough; R09.81 Nasal congestion; R06.02 Shortness of breath; J45.909 Unspecified asthma, uncomplicated; D50.9 Iron deficiency anemia, unspecified; Z79.899 Other long term (current) drug therapy; Z88.0 Allergy status to penicillin; Z88.1 Allergy status to other antibiotic agents; Z88.2 Allergy status to sulfonamides; Z88.8 Allergy status to other drugs, medicaments and biological substances
CPT/HCPCS: 36415; 71020; 80053; 81001; 81025; 82150; 83690; 85025; 87086; 96360; 99284

== ENCOUNTER → 2016-07-06 | Outpatient (CLI) | payer MEDICAID, OTHER ==
[2016-07-06 20:55] LABS: ALT 41 U/L (9-52); AST 24 U/L (14-36); Alkaline Phosphatase 59 U/L (38-126); Anion Gap 10 mmol/L; Blood Urea Nitrogen 13 mg/dL (7-17); Calcium 9.6 mg/dL (8.4-10.2); Carbon Dioxide 27 mmol/L (22-30); Chloride 105 mmol/L (98-107); Cholesterol 170 mg/dL (<200); Glucose 75 mg/dL (74-99); HDL Cholesterol 62 mg/dL (40-60); Non-African American GFR(MDRD) >60 (>60 ml/min/1.73 sqM); Potassium 4.6 mmol/L (3.5-5.1); Sodium 142 mmol/L (137-145); Total Bilirubin 1.1 mg/dL (0.2-1.3); Total Protein 7.3 g/dL (6.3-8.2); Triglycerides 77 mg/dL (<150)
[2016-07-06 21:41] LABS: Vitamin B12 734 pg/mL (239-931)
== END | disposition home or self-care (01) ==
LOC: MMGSC 10:54
PROVIDERS: ATTEND Family Medicine
DX: Z00.00 Encounter for general adult medical examination without abnormal findings (principal); R53.83 Other fatigue
CPT/HCPCS: 36415; 80053; 80061; 82306; 82607

== ENCOUNTER 2016-09-26 20:51 | Emergency (ER) | payer MEDICAID ==
[2016-09-26] MEDS ORDERED: ONDANSETRON 4 MG/2 ML VIAL IVP STA (22:17)
[2016-09-26] MEDS ORDERED: SODIUM CHLORIDE 0.9% 500 ML IV STA (22:17)
--- NOTE | 2016-09-26 22:21 | ED ---
Abdominal Pain HPI - General Chief Complaint: Abdominal Pain Stated Complaint: Abd Pain Time Seen by Provider: 09/26/16 22:04 Source: patient Mode of arrival: ambulatory Limitations: no limitations - History of Present Illness Initial Comments: Patient is a 31-year-old woman with complaint of abdominal pain and nausea that is been going on for approximately one week. She states that seems to be bothering her in 2 locations, the epigastric area and also the left lower quadrant. She describes the pain as somewhat intermittent, mild to moderate intensity, bloating or cramping feeling. She has not noted anything that seems to make it better or worse. She has also been nauseated and feeling like she needs to force herself to eat. MD Complaint: abdominal pain Onset/Timin -: week(s) Location: LLQ, epigastric Radiation: none Migration to: no migration Severity: moderate Quality: fullness Consistency: intermittent Improves With: nothing Worsens With: nothing Associated Symptoms: nausea - Related Data Home Medications Medication Instructions Recorded Confirmed Cholecalciferol [Vitamin D3] 3,000 unit PO HS 06/19/15 09/26/16 Ferrous Sulfate [Iron (65 MG 325 mg PO MOFR 06/19/15 09/26/16 Elemental)] Ipratropium-Albuterol Nebulize 3 ml INHALATION RT-QID PRN 05/24/16 09/26/16 [Duoneb 0.5 mg-3 mg/3 ml Soln] ALPRAZolam [Xanax] 0.125 mg PO DAILY PRN 09/26/16 09/26/16 Albuterol Inhaler [Ventolin Hfa 1 - 2 puff INHALATION RT-QID PRN 09/26/16 Inhaler] Previous Rx's Medication Instructions Recorded Dicyclomine [Bentyl] 20 mg PO QID #15 tablet 09/27/16 Famotidine [Pepcid] 20 mg PO BID #14 tablet 09/27/16 Ondansetron Odt [Zofran ODT] 4 mg PO Q8HR PRN #10 tab 09/27/16 Allergies Allergy/AdvReac Type Severity Reaction Status Date / Time amoxicillin trihydrate Allergy Rash/Hives Verified 09/26/16 22:32 [From Augmentin] cefaclor [From Ceclor] Allergy Rash/Hives Verified 06/01/16 14:09 latex Allergy Rash/Hives Verified 06/01/16 14:09 nitrofurantoin Allergy Rash/Hives Verified 06/01/16 14:09 [From Macrobid] nitrofurantoin Allergy Rash/Hives Verified 06/01/16 14:09 macrocrystalline [From Macrobid] potassium clavulanate Allergy Rash/Hives Verified 06/01/16 14:09 [From Augmentin] Sulfa (Sulfonamide Allergy Rash/Hives Verified 06/01/16 14:09 Antibiotics) Review of Systems ROS Statement: Those systems with pertinent positive or pertinent negative responses have been documented in the HPI. ROS Other: All systems not noted in ROS Statement are negative. Constitutional: Denies: fever, chills Respiratory: Denies: cough, dyspnea Cardiovascular: Denies: chest pain, palpitations Gastrointestinal: Reports: abdominal pain, nausea. Denies: vomiting, diarrhea, constipation, melena, hematochezia Genitourinary: Denies: dysuria, hematuria, abnormal menses Musculoskeletal: Denies: back pain Skin: Denies: rash Neurological: Denies: headache Past Medical History Past Medical History: Asthma, GERD/Reflux Additional Past Medical History / Comment(s): Endometriosis, iron deficiency anemia, frequent UTIs History of Any Multi-Drug Resistant Organisms: None Reported Past Surgical History: Section, Cholecystectomy, Tubal Ligation Additional Past Surgical History / Comment(s): LAPAROSCOPY X2, EGD, LEEP procedure, wisdom teeth 2009 Past Anesthesia/Blood Transfusion Reactions: Motion Sickness, Postoperative Nausea & Vomiting (PONV) Past Psychological History: No Psychological Hx Reported Smoking Status: Never smoker Past Alcohol Use History: Rare Past Drug Use History: None Reported - Past Family History Mother Family Medical History: Hypertension General Exam Limitations: no limitations General appearance: alert, in no apparent distress Head exam: Present: atraumatic, normocephalic Eye exam: Present: normal appearance. Absent: scleral icterus, conjunctival injection ENT exam: Present: normal oropharynx, mucous membranes moist Neck exam: Present: normal inspection Respiratory exam: Present: normal lung sounds bilaterally. Absent: respiratory distress, wheezes, rales, rhonchi, stridor Cardiovascular Exam: Present: regular rate, normal rhythm, normal heart sounds. Absent: systolic murmur, diastolic murmur, rubs, gallop GI/Abdominal exam: Present: soft, tenderness (There is mild left lower quadrant tenderness without rebound or guarding), normal bowel sounds, hernia (There is a small umbilical hernia which is not tender and is reduced.). Absent: distended, guarding, rebound, rigid, organomegaly, mass, pulsatile mass Extremities exam: Present: normal inspection, normal capillary refill. Absent: pedal edema, calf tenderness Back exam: Present: normal inspection. Absent: CVA tenderness (R), CVA tenderness (L) Skin exam: Present: warm, dry, intact, normal color. Absent: rash, cyanosis, diaphoretic, erythema, petechiae, pallor, mottled Course Vital Signs 09/26/16 09/26/16 21:19 23:11 Temperature 98.7 F Pulse Rate 73 83 Respiratory 18 18 Rate Blood Pressure 118/81 106/52 O2 Sat by Pulse 99 100 Oximetry Medical Decision Making - Lab Data Result diagrams: 09/26/16 23:05 09/26/16 23:05 Lab Results 09/26/16 09/26/16 09/26/16 Range/Units 23:05 23:05 23:05 WBC 4.6 (3.8-10.6) k/uL RBC 4.46 (3.80-5.40) m/uL Hgb 14.3 (11.4-16.0) gm/dL Hct 39.7 (34.0-46.0) % MCV 89.1 (80.0-100.0) fL MCH 32.0 (25.0-35.0) pg MCHC 35.9 (31.0-37.0) g/dL RDW 12.3 (11.5-15.5) % Plt Count 164 (150-450) k/uL Neutrophils % 56 % Lymphocytes % 34 % Monocytes % 5 % Eosinophils % 1 % Basophils % 1 % Neutrophils # 2.6 (1.3-7.7) k/uL Lymphocytes # 1.6 (1.0-4.8) k/uL Monocytes # 0.2 (0-1.0) k/uL Eosinophils # 0.0 (0-0.7) k/uL Basophils # 0.0 (0-0.2) k/uL Sodium 141 (137-145) mmol/L Potassium 3.7 (3.5-5.1) mmol/L Chloride 106 (98-107) mmol/L Carbon Dioxide 24 (22-30) mmol/L Anion Gap 11 mmol/L BUN 9 (7-17) mg/dL Creatinine 0.70 (0.52-1.04) mg/dL Est GFR (MDRD) Af Amer >60 (>60 ml/min/1.73 sqM) Est GFR (MDRD) Non-Af >60 (>60 ml/min/1.73 sqM) Glucose 89 (74-99) mg/dL Calcium 9.7 (8.4-10.2) mg/dL Total Bilirubin 0.9 (0.2-1.3) mg/dL AST 19 (14-36) U/L ALT 34 (9-52) U/L Alkaline Phosphatase 51 (38-126) U/L Total Protein 6.9 (6.3-8.2) g/dL Albumin 4.5 (3.5-5.0) g/dL Amylase 54 (30-110) U/L Lipase 64 (23-300) U/L Urine Color Urine Appearance (Clear) Urine pH (5.0-8.0) Ur Specific [place] (1.001-1.035) Urine Protein (Negative) Urine Glucose (UA) (Negative) Urine Ketones (Negative) Urine Blood (Negative) Urine Nitrite (Negative) Urine Bilirubin (Negative) Urine Urobilinogen (<2.0) mg/dL Ur Leukocyte Esterase (Negative) Urine RBC (0-5) /hpf Urine WBC (0-5) /hpf Ur Squamous Epith Cells (0-4) /hpf Urine Bacteria (None) /hpf Urine Mucus (None) /hpf Urine HCG, Qual Not Detected (Not Detectd) 09/26/16 Range/Units 23:05 WBC (3.8-10.6) k/uL RBC (3.80-5.40) m/uL Hgb (11.4-16.0) gm/dL Hct (34.0-46.0) % MCV (80.0-100.0) fL MCH (25.0-35.0) pg MCHC (31.0-37.0) g/dL RDW (11.5-15.5) % Plt Count (150-450) k/uL Neutrophils % % Lymphocytes % % Monocytes % % Eosinophils % % Basophils % % Neutrophils # (1.3-7.7) k/uL Lymphocytes # (1.0-4.8) k/uL Monocytes # (0-1.0) k/uL Eosinophils # (0-0.7) k/uL Basophils # (0-0.2) k/uL Sodium (137-145) mmol/L Potassium (3.5-5.1) mmol/L Chloride (98-107) mmol/L Carbon Dioxide (22-30) mmol/L Anion Gap mmol/L BUN (7-17) mg/dL Creatinine (0.52-1.04) mg/dL Est GFR (MDRD) Af Amer (>60 ml/min/1.73 sqM) Est GFR (MDRD) Non-Af (>60 ml/min/1.73 sqM) Glucose (74-99) mg/dL Calcium (8.4-10.2) mg/dL Total Bilirubin (0.2-1.3) mg/dL AST (14-36) U/L ALT (9-52) U/L Alkaline Phosphatase (38-126) U/L Total Protein (6.3-8.2) g/dL Albumin (3.5-5.0) g/dL Amylase (30-110) U/L Lipase (23-300) U/L Urine Color Yellow Urine Appearance Cloudy H (Clear) Urine pH 5.5 (5.0-8.0) Ur Specific [place] 1.013 (1.001-1.035) Urine Protein Negative (Negative) Urine Glucose (UA) Negative (Negative) Urine Ketones Negative (Negative) Urine Blood Negative (Negative) Urine Nitrite Negative (Negative) Urine Bilirubin Negative (Negative) Urine Urobilinogen <2.0 (<2.0) mg/dL Ur Leukocyte Esterase Negative (Negative) Urine RBC 1 (0-5) /hpf Urine WBC 3 (0-5) /hpf Ur Squamous Epith Cells 8 H (0-4) /hpf Urine Bacteria Many H (None) /hpf Urine Mucus Rare H (None) /hpf Urine HCG, Qual (Not Detectd) Disposition Clinical Impression: Abdominal pain Disposition: HOME SELF-CARE Condition: Fair Instructions: Abdominal Pain (ED) Prescriptions: Dicyclomine [Bentyl] 20 mg PO QID #15 tablet Famotidine [Pepcid] 20 mg PO BID #14 tablet Ondansetron Odt [Zofran ODT] 4 mg PO Q8HR PRN #10 tab PRN Reason: Nausea Referrals: Kathy Marcano MD [Primary Care Provider] - 1-2 days River Urban MD [STAFF PHYSICIAN] - 1-2 days
[2016-09-26 23:31] LABS: Basophils % (A) 1 %; CH 32.5; CHCM 36.6; Eosinophils % (A) 1 %; HCT 39.7 % (34.0-46.0); HDW 3.15; HGB 14.3 gm/dL (11.4-16.0); Luc # (Auto) 0.15; Luc % (Auto) 3; Lymphocytes # (A) 1.6 k/uL (1.0-4.8); Lymphocytes % (A) 34 %; MCHC 35.9 g/dL (31.0-37.0); MCV 89.1 fL (80.0-100.0); Mean Platelet Volume 9.4; Monocytes # (A) 0.2 k/uL (0-1.0); Monocytes % (A) 5 %; Neutrophils # (A) 2.6 k/uL (1.3-7.7); Neutrophils % (A) 56 %; RBC 4.46 m/uL (3.80-5.40); RDW 12.3 % (11.5-15.5); WBC 4.6 k/uL (3.8-10.6); WBC (Perox) 4.63
[2016-09-26 23:32] LABS: Appearance,Urine Cloudy (Clear); Bacteria,Urine Many /hpf; Bilirubin,Urine Negative (Negative); Glucose,Urine (UA) Negative (Negative); Ketones,Urine Negative (Negative); Leukocyte Esterase,Urine Negative (Negative); Mucus,Urine Rare /hpf; Nitrite,Urine Negative (Negative); PH, Urine 5.5 (5.0-8.0); Particle Count 5725; Protein,Urine Negative (Negative); RBC,Urine 1 /hpf (0-5); Specific Gravity,Urine 1.013 (1.001-1.035); Squamous Epithelial Cell,Urine 8 /hpf (0-4); UA Billing (MACRO vs. MICRO) MICRO; Urobilinogen,Urine <2.0 mg/dL (<2.0); WBC,Urine 3 /hpf (0-5)
[2016-09-27 00:04] LABS: ALT 34 U/L (9-52); AST 19 U/L (14-36); Alkaline Phosphatase 51 U/L (38-126); Amylase 54 U/L (30-110); Anion Gap 11 mmol/L; Blood Urea Nitrogen 9 mg/dL (7-17); Calcium 9.7 mg/dL (8.4-10.2); Carbon Dioxide 24 mmol/L (22-30); Chloride 106 mmol/L (98-107); Glucose 89 mg/dL (74-99); Non-African American GFR(MDRD) >60 (>60 ml/min/1.73 sqM); Potassium 3.7 mmol/L (3.5-5.1); Sodium 141 mmol/L (137-145); Total Bilirubin 0.9 mg/dL (0.2-1.3); Total Protein 6.9 g/dL (6.3-8.2)
[2016-09-27 02:49] VITALS: BP 115/59; PULSE 98; RESP 16; TEMP 97.4
== END 2016-09-27 02:25 | disposition home or self-care (01) ==
LOC: EC 20:51
DX: R10.32 Left lower quadrant pain (principal); R10.13 Epigastric pain; R11.0 Nausea; Z90.49 Acquired absence of other specified parts of digestive tract; Z88.0 Allergy status to penicillin; Z88.1 Allergy status to other antibiotic agents; Z91.040 Latex allergy status; Z88.2 Allergy status to sulfonamides; Z79.899 Other long term (current) drug therapy
CPT/HCPCS: 99284; 96374; 36415; 80053; 82150; 83690; 85025; 81001; 81025; J2405

== ENCOUNTER → 2016-10-20 | Outpatient (CLI) | payer MEDICAID ==
[2016-10-20 15:31] LABS: Hepatitis B Surface Ag Index 0.05
[2016-10-20 15:48] LABS: Hepatitis C Virus IgG Ab Negative (Negative); Hepatitis C Virus IgG Index 0.57
[2016-10-20 19:15] LABS: Centromere Antibody Interp NEGATIVE (NEGATIVE); Cyclic Citrull Pep IgG Unit <0.5 U/mL; Cyclic Citrullinated Pep IgG NEGATIVE (NEGATIVE); RNP AB Interpretation NEGATIVE (NEGATIVE); Scleroderma SC-70 Ab Interp NEGATIVE (NEGATIVE)
[2016-10-21 12:42] LABS: HLA B27 NEGATIVE; HLA B27 Comment SEEBELOW
[2016-10-21 14:44] LABS: C-ANCA <1:20 Titer (<1:20); P-ANCA <1:20 Titer (<1:20)
[2016-10-22 06:08] LABS: Complement Total (CH50) 48 U/mL (42 - 95)
== END | disposition home or self-care (01) ==
LOC: LABWHC1 14:19
PROVIDERS: ATTEND Internal Medicine Rheumatology
DX: R76.8 Other specified abnormal immunological findings in serum (principal)
CPT/HCPCS: 36415; 82164; 83883; 84165; 84439; 84443; 86038; 86147; 86160; 86162; 86200; 86225; 86235; 86255; 86334; 86803; 86812; 87340

== ENCOUNTER → 2016-10-25 | Outpatient (CLI) | payer MEDICAID ==
--- NOTE | 2016-10-25 13:27 | CT ---
EXAMINATION TYPE: CT abdomen pelvis w con DATE OF EXAM: 10/25/2016 HISTORY: Epigastric pain CT DLP: 939mGycm Automated Exposure Control for Dose Reduction was Utilized. CONTRAST: CT scan of the abdomen and pelvis is performed with oral and with IV Contrast, patient injected with 100 ml mL of Omnipaque 300. COMPARISON: CT abdomen and pelvis March 09, 2015 FINDINGS: LUNG BASES: No significant abnormality is appreciated. LIVER/GB: Cholecystectomy clips are redemonstrated. PANCREAS: Pancreas is overall slightly prominent particularly at head level but this is not significa ntly changed from prior study. SPLEEN: No significant abnormality is seen. ADRENALS: No significant abnormality is seen. KIDNEYS: No significant abnormality is seen. BOWEL: Normal contrast-filled appendix is seen. Oral contrast reaches level of the splenic flexure. T here is no suspicious small or large bowel dilatation identified. UTERUS/ADNEXA: Uterus is anteverted in shape and within normal limits in size. Hypodense lesions towa rds the cervix is suspicious for nabothian cysts. Small amount of free fluid is seen in left pelvis o n axial image 69. Ovaries are symmetric and heterogeneous seen near axial image 59 along periphery of the uterus. There are some rim hyperdense small lesions in right ovary. All findings can be better e valuated with dedicated pelvic ultrasound if desired. LYMPH NODES: No greater than 1cm abdominal or pelvic lymph nodes are appreciated. OSSEOUS STRUCTURES: There are 6 lumbar type vertebra are bilateral hypoplastic T12 ribs redemonstrate d. OTHER: No significant additional abnormality is seen. IMPRESSION: No bowel obstruction is seen. No significant acute finding is seen to account for patient 's clinical symptoms.
== END ==
LOC: RADCTMAIN 10:30
PROVIDERS: ATTEND Family Medicine
DX: R10.13 Epigastric pain (principal)
CPT/HCPCS: 74177; Q9967

== ENCOUNTER → 2016-11-08 | Outpatient (CLI) | payer MEDICAID ==
--- NOTE | 2016-11-08 14:59 | US ---
EXAMINATION TYPE: US pelvis complete transvag DATE OF EXAM: 11/08/2016 COMPARISON: CT abdomen and pelvis from 2 weeks earlier. CLINICAL HISTORY: N83.201 OVARIAN CYST. Right pelvic pain, h/o endometriosis and ovarian cyst per pat ient, [address] c-sections recent CT TECHNIQUE: TA and TV pelvic ultrasound Date of LMP: 11/02/2016 EXAM MEASUREMENTS: Uterus: 9.7 x 6.7 x 5.8 cm Endometrial Stripe: 0.7 cm Right Ovary: 3.2 x 2.3 x 2.5 cm Left Ovary: 3.0 x 2.6 x 2.0 cm 1. Uterus: Anteverted nabothian cysts seen within cervix 2. Endometrium: wnl 3. Right Ovary: cluster of follicles noted under 1cm 4. Left Ovary: wnl 5. Bilateral Adnexa: wnl 6. Posterior cul-de-sac: wnl Transverse scanning redemonstrates divergent uterine horns consistent with arcuate type uterus which correlates with coronal CT imaging. Small to moderate amount of free fluid is seen in pelvic cul-de-s ac as seen on image 6. Some nabothian cysts are redemonstrated in the cervix. Endometrium is not susp iciously thickened. Neither ovary is well seen. 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 Small to moderate amount of free fluid in pelvis, nonspecifi c finding otherwise unremarkable study.
== END | disposition home or self-care (01) ==
LOC: RADUSWWP 14:06
PROVIDERS: ATTEND Family Medicine
DX: N83.201 Unspecified ovarian cyst, right side (principal)
CPT/HCPCS: 76830; 76856

== ENCOUNTER → 2017-03-10 | Outpatient (CLI) | payer MEDICAID, OTHER ==
[2017-03-10 19:00] LABS: Basophils % (A) 1 %; CH 27.8; CHCM 31.5; Eosinophils # (A) 0.1 k/uL (0-0.7); Eosinophils % (A) 1 %; HCT 39.9 % (34.0-46.0); HDW 3.07; HGB 12.3 gm/dL (11.4-16.0); Hypochromasia Slight; Large Platelets Flag Slight; Luc # (Auto) 0.14; Luc % (Auto) 3; Lymphocytes # (A) 1.1 k/uL (1.0-4.8); Lymphocytes % (A) 21 %; MCH 27.2 pg (25.0-35.0); MCHC 30.7 g/dL (31.0-37.0); MCV 88.4 fL (80.0-100.0); Mean Platelet Volume 10.6; Monocytes # (A) 0.2 k/uL (0-1.0); Monocytes % (A) 4 %; Neutrophils # (A) 3.9 k/uL (1.3-7.7); Neutrophils % (A) 71 %; RBC 4.51 m/uL (3.80-5.40); WBC 5.6 k/uL (3.8-10.6); WBC (Perox) 5.55
[2017-03-11 01:00] LABS: Iron Saturation 7.11 (12.00-45.00)
== END | disposition home or self-care (01) ==
LOC: MMGSC 12:18
PROVIDERS: ATTEND Family Medicine
DX: R53.83 Other fatigue (principal)
CPT/HCPCS: 36415; 82728; 83540; 83550; 85025

== ENCOUNTER → 2017-04-08 | Outpatient (CLI) | payer MEDICAID | END | disposition home or self-care (01) | LOC: MMGSC 10:46 | PROVIDERS: ATTEND Family Medicine | DX: R53.83 Other fatigue (principal); R53.1 Weakness; Z86.2 Personal history of diseases of the blood and blood-forming organs and certain disorders involving the immune mechanism | CPT/HCPCS: 36415; 82306; 82550; 83519 ==

== ENCOUNTER 2017-06-03 12:14 | Emergency (ER) | payer MEDICAID ==
[2017-06-03 12:32] VITALS: RESP 18
[2017-06-03 14:02] LABS: Basophils % (A) 0 %; Eosinophils # (A) 0.1 k/uL (0-0.7); Eosinophils % (A) 1 %; HCT 37.6 % (34.0-46.0); Lymphocytes # (A) 0.9 k/uL (1.0-4.8); Lymphocytes % (A) 22 %; MCH 29.2 pg (25.0-35.0); MCHC 31.9 g/dL (31.0-37.0); MCV 91.4 fL (80.0-100.0); Mean Platelet Volume 9.4; Monocytes # (A) 0.2 k/uL (0-1.0); Monocytes % (A) 4 %; Neutrophils % (A) 71 %; Platelet Count 179 k/uL (150-450); RBC 4.12 m/uL (3.80-5.40); RDW 13.6 % (11.5-15.5); WBC 4.2 k/uL (3.8-10.6)
[2017-06-03 14:14] LABS: Anion Gap 11 mmol/L; Blood Urea Nitrogen 14 mg/dL (7-17); Carbon Dioxide 27 mmol/L (22-30); Chloride 105 mmol/L (98-107); Glucose 96 mg/dL (74-99); Potassium 4.2 mmol/L (3.5-5.1); Sodium 143 mmol/L (137-145)
[2017-06-03 14:15] LABS: ALT 21 U/L (9-52); AST 15 U/L (14-36); Albumin 4.6 g/dL (3.5-5.0); Alkaline Phosphatase 51 U/L (38-126); Calcium 9.8 mg/dL (8.4-10.2); Total Bilirubin 0.5 mg/dL (0.2-1.3); Total Protein 7.1 g/dL (6.3-8.2)
[2017-06-03 15:25] LABS: Amorphous Sediment,Urine Rare /hpf; Appearance,Urine Clear (Clear); Bacteria,Urine Rare /hpf; Bilirubin,Urine Negative (Negative); Blood,Urine Large (Negative); Color,Urine Light Yellow; Glucose,Urine (UA) Negative (Negative); Ketones,Urine Negative (Negative); Leukocyte Esterase,Urine Negative (Negative); Nitrite,Urine Negative (Negative); PH, Urine 7.5 (5.0-8.0); Protein,Urine Negative (Negative); RBC,Urine >182 /hpf (0-5); Specific Gravity,Urine 1.006 (1.001-1.035); Squamous Epithelial Cell,Urine 1 /hpf (0-4); Urobilinogen,Urine <2.0 mg/dL (<2.0); WBC,Urine 2 /hpf (0-5)
--- NOTE | 2017-06-03 15:34 | ED ---
General Adult HPI - General Chief complaint: Vaginal Bleeding Stated complaint: Vaginal Bleeding, Nauseated Time Seen by Provider: 06/03/17 15:06 Source: patient, RN notes reviewed Mode of arrival: ambulatory Limitations: no limitations - History of Present Illness Initial comments: 32-year-old female presents to the emergency department with a chief complaint of vaginal bleeding. Patient states that she normally does have heavy irregular cycles. She states she's been having a heavy cycle this month. She states that she's noticed large clots. She states she's also had some crampy with it. She was concerned due to the continued pain so she thought that they should be evaluated. Patient states that she does not believe that she is . Patient states her tubes have been tied. Patient states that she was just concerned due to the large clots so she thought that she should be seen. Patient denies any recent fever, chills, shortness of breath, chest pain, back pain, nausea vomiting, numbness or tingling, dysuria or hematuria, constipation or diarrhea, headaches or visual changes, or any other current symptoms. - Related Data Home Medications Medication Instructions Recorded Confirmed Cholecalciferol [Vitamin D3] 3,000 unit PO HS 06/19/15 06/03/17 Ferrous Sulfate [Iron (65 MG 325 mg PO HS 06/19/15 06/03/17 Elemental)] ALPRAZolam [Xanax] 0.125 mg PO DAILY PRN 09/26/16 06/03/17 Albuterol Inhaler [Ventolin Hfa 1 - 2 puff INHALATION RT-QID PRN 09/26/16 Inhaler] Zafirlukast [Accolate] 20 mg PO DAILY 06/03/17 06/03/17 Allergies Allergy/AdvReac Type Severity Reaction Status Date / Time amoxicillin trihydrate Allergy Rash/Hives Verified 06/03/17 16:10 [From Augmentin] cefaclor [From Ceclor] Allergy Rash/Hives Verified 06/03/17 16:10 latex Allergy Rash/Hives Verified 06/03/17 16:10 nitrofurantoin Allergy Rash/Hives Verified 06/03/17 16:10 [From Macrobid] nitrofurantoin Allergy Rash/Hives Verified 06/03/17 16:10 macrocrystalline [From Macrobid] potassium clavulanate Allergy Rash/Hives Verified 06/03/17 16:10 [From Augmentin] Sulfa (Sulfonamide Allergy Rash/Hives Verified 06/03/17 16:10 Antibiotics) Review of Systems ROS Statement: Those systems with pertinent positive or pertinent negative responses have been documented in the HPI. ROS Other: All systems not noted in ROS Statement are negative. Past Medical History Past Medical History: Asthma, GERD/Reflux Additional Past Medical History / Comment(s): Endometriosis, iron deficiency anemia, frequent UTIs History of Any Multi-Drug Resistant Organisms: None Reported Past Surgical History: Section, Cholecystectomy, Tubal Ligation Additional Past Surgical History / Comment(s): LAPAROSCOPY X2, EGD, LEEP procedure, wisdom teeth 2009 Past Anesthesia/Blood Transfusion Reactions: Motion Sickness, Postoperative Nausea & Vomiting (PONV) Past Psychological History: Anxiety Smoking Status: Never smoker Past Alcohol Use History: None Reported Past Drug Use History: None Reported - Past Family History Mother Family Medical History: Hypertension General Exam - General Exam Comments Initial Comments: General: The patient is awake and alert, in no distress, and does not appear acutely ill. Eye: Pupils are equal, round and reactive to light, extra-ocular movements are intact; there is normal conjunctiva bilaterally. No signs of icterus. Ears, nose, mouth and throat: There are moist mucous membranes. Neck: The neck is supple, there is no tenderness. Cardiovascular: There is a regular rate and rhythm. No murmur, rub or gallop is appreciated. Respiratory: Lungs are clear to auscultation, respirations are non-labored, breath sounds are equal. No wheezes, stridor, rales, or rhonchi. Gastrointestinal: Soft, non-distended, non-tender abdomen without masses or organomegaly noted. There is no rebound or guarding present. No CVA tenderness. Bowel sounds are unremarkable. Back: There is no tenderness to palpation in the midline. There is no obvious deformity. No rashes noted. Musculoskeletal: Normal ROM, no tenderness, There is no pedal edema. There is no calf tenderness or swelling. Sensation intact. Pulses equal bilaterally 2+. Neurological: CN II-XII intact, There are no obvious motor or sensory deficits. Coordination appears grossly intact. Speech is normal. Skin: Skin is warm and dry and no rashes or lesions are noted. Psychiatric: Cooperative, appropriate mood & affect, normal judgment. Limitations: no limitations External exam: Present: normal external exam Speculum exam: Present: normal speculum exam, vaginal bleeding (Minimal) By manual exam: Present: normal by manual exam Course Vital Signs 06/03/17 12:29 Temperature 99.1 F Pulse Rate 81 Respiratory 18 Rate Blood Pressure 111/60 O2 Sat by Pulse 100 Oximetry Medical Decision Making - Medical Decision Making 32-year-old female presents for vaginal bleeding. At this time patient's ultrasound and lab work has been reviewed. This time the patient does appear to have a fibroid. We discussed could be why she is having increased bleeding. We discussed follow-up with SECRETARY TO THE VICE PRESIDENT. We discussed return parameters and all her questions. She stated that she understood and she is agreement this plan. All questions have been answered. She will be discharged. - Lab Data Result diagrams: 06/03/17 13:41 06/03/17 13:41 Lab Results 06/03/17 06/03/17 06/03/17 Range/Units 13:41 13:41 14:30 WBC 4.2 (3.8-10.6) k/uL RBC 4.12 (3.80-5.40) m/uL Hgb 12.0 (11.4-16.0) gm/dL Hct 37.6 (34.0-46.0) % MCV 91.4 (80.0-100.0) fL MCH 29.2 (25.0-35.0) pg MCHC 31.9 (31.0-37.0) g/dL RDW 13.6 (11.5-15.5) % Plt Count 179 (150-450) k/uL Neutrophils % 71 % Lymphocytes % 22 % Monocytes % 4 % Eosinophils % 1 % Basophils % 0 % Neutrophils # 3.0 (1.3-7.7) k/uL Lymphocytes # 0.9 L (1.0-4.8) k/uL Monocytes # 0.2 (0-1.0) k/uL Eosinophils # 0.1 (0-0.7) k/uL Basophils # 0.0 (0-0.2) k/uL Sodium 143 (137-145) mmol/L Potassium 4.2 (3.5-5.1) mmol/L Chloride 105 (98-107) mmol/L Carbon Dioxide 27 (22-30) mmol/L Anion Gap 11 mmol/L BUN 14 (7-17) mg/dL Creatinine 0.60 (0.52-1.04) mg/dL Est GFR (MDRD) Af Amer >60 (>60 ml/min/1.73 sqM) Est GFR (MDRD) Non-Af >60 (>60 ml/min/1.73 sqM) Glucose 96 (74-99) mg/dL Calcium 9.8 (8.4-10.2) mg/dL Total Bilirubin 0.5 (0.2-1.3) mg/dL AST 15 (14-36) U/L ALT 21 (9-52) U/L Alkaline Phosphatase 51 (38-126) U/L Total Protein 7.1 (6.3-8.2) g/dL Albumin 4.6 (3.5-5.0) g/dL Urine Color Urine Appearance (Clear) Urine pH (5.0-8.0) Ur Specific [place] (1.001-1.035) Urine Protein (Negative) Urine Glucose (UA) (Negative) Urine Ketones (Negative) Urine Blood (Negative) Urine Nitrite (Negative) Urine Bilirubin (Negative) Urine Urobilinogen (<2.0) mg/dL Ur Leukocyte Esterase (Negative) Urine RBC (0-5) /hpf Urine WBC (0-5) /hpf Ur Squamous Epith Cells (0-4) /hpf Amorphous Sediment (None) /hpf Urine Bacteria (None) /hpf Urine HCG, Qual Not Detected (Not Detectd) 06/03/17 Range/Units 14:30 WBC (3.8-10.6) k/uL RBC (3.80-5.40) m/uL Hgb (11.4-16.0) gm/dL Hct (34.0-46.0) % MCV (80.0-100.0) fL MCH (25.0-35.0) pg MCHC (31.0-37.0) g/dL RDW (11.5-15.5) % Plt Count (150-450) k/uL Neutrophils % % Lymphocytes % % Monocytes % % Eosinophils % % Basophils % % Neutrophils # (1.3-7.7) k/uL Lymphocytes # (1.0-4.8) k/uL Monocytes # (0-1.0) k/uL Eosinophils # (0-0.7) k/uL Basophils # (0-0.2) k/uL Sodium (137-145) mmol/L Potassium (3.5-5.1) mmol/L Chloride (98-107) mmol/L Carbon Dioxide (22-30) mmol/L Anion Gap mmol/L BUN (7-17) mg/dL Creatinine (0.52-1.04) mg/dL Est GFR (MDRD) Af Amer (>60 ml/min/1.73 sqM) Est GFR (MDRD) Non-Af (>60 ml/min/1.73 sqM) Glucose (74-99) mg/dL Calcium (8.4-10.2) mg/dL Total Bilirubin (0.2-1.3) mg/dL AST (14-36) U/L ALT (9-52) U/L Alkaline Phosphatase (38-126) U/L Total Protein (6.3-8.2) g/dL Albumin (3.5-5.0) g/dL Urine Color Light Yellow Urine Appearance Clear (Clear) Urine pH 7.5 (5.0-8.0) Ur Specific [place] 1.006 (1.001-1.035) Urine Protein Negative (Negative) Urine Glucose (UA) Negative (Negative) Urine Ketones Negative (Negative) Urine Blood Large H (Negative) Urine Nitrite Negative (Negative) Urine Bilirubin Negative (Negative) Urine Urobilinogen <2.0 (<2.0) mg/dL Ur Leukocyte Esterase Negative (Negative) Urine RBC >182 H (0-5) /hpf Urine WBC 2 (0-5) /hpf Ur Squamous Epith Cells 1 (0-4) /hpf Amorphous Sediment Rare H (None) /hpf Urine Bacteria Rare H (None) /hpf Urine HCG, Qual (Not Detectd) - Radiology Data Radiology results: report reviewed, image reviewed Disposition Clinical Impression: Uterine fibroid Disposition: HOME SELF-CARE Condition: Stable Instructions: Uterine Fibroids (ED) Additional Instructions: Please use medication as discussed. Please follow up with family doctor if symptoms have not improved over the next two days. Please return to the emergency room if your symptoms increase or worsen or for any other concerns. Referrals: Kathy Marcano MD [Primary Care Provider] - 1-2 days Time of Disposition: 16:28
--- NOTE | 2017-06-03 16:02 | US ---
EXAMINATION TYPE: US transvaginal DATE OF EXAM: 06/03/2017 COMPARISON: NONE CLINICAL HISTORY: Pain. Vaginal bleeding TECHNIQUE: . Transabdominal sonographic images of the pelvis were acquired. Transvaginal sonographi c images were medically necessary to better assess the following anatomy: EXAM MEASUREMENTS: Uterus: 10.9 x 6.3 x 8.2 cm Endometrial Stripe: 0.6 cm Right Ovary: 2.4 x 1.8 x 1.8 cm Left Ovary: Obscured by overlying bowel gas 1. Uterus: Anteverted, fluid collections within the cervix may represent nabothian cysts, also scatt ered echogenic foci, bulky, probable fibroid seen anterior fundal measuring 2.4 x 2.2 x 2.6cm 2. Endometrium: wnl 3. Right Ovary: wnl 4. Left Ovary: Obscured by overlying bowel gas Spectral, color and waveform doppler imaging shows good arterial and venous flow within the right o vary; there is no evidence for ovarian torsion on right. Left not visualized. 5. Bilateral Adnexa: left adnexa shows some increased vascularity 6. Posterior cul-de-sac: wnl IMPRESSION: 1. Heterogenous uterine myometrium with at least one uterine leiomyoma measuring 2.6 cm in the anteri or fundus. Endometrial thickness is within normal limits. 2. Left ovary is obscured by bowel gas and nonvisualized.
[2017-06-03 16:35] VITALS: BP 147/87; PULSE 87; TEMP 98.7
== END 2017-06-03 16:35 | disposition home or self-care (01) ==
LOC: EC 12:14
DX: D25.9 Leiomyoma of uterus, unspecified (principal); J45.909 Unspecified asthma, uncomplicated; Z86.2 Personal history of diseases of the blood and blood-forming organs and certain disorders involving the immune mechanism; Z79.899 Other long term (current) drug therapy; Z88.0 Allergy status to penicillin; Z88.1 Allergy status to other antibiotic agents; Z91.040 Latex allergy status; Z88.2 Allergy status to sulfonamides
CPT/HCPCS: 36415; 76830; 80053; 81001; 81025; 85025; 87086; 93976; 99284

== ENCOUNTER 2017-08-19 04:55 | Emergency (ER) | payer MEDICAID ==
[2017-08-19 05:02] VITALS: BP 128/66; RESP 20; TEMP 99.1
[2017-08-19] MEDS ORDERED: IPRATROPIUM-ALBUTEROL 3 ML NEB INHALATION STA (05:09)
--- NOTE | 2017-08-19 05:11 | ED ---
SOB HPI - General Chief Complaint: Shortness of Breath Stated Complaint: SOB Time Seen by Provider: 08/19/17 05:05 Source: patient, RN notes reviewed Mode of arrival: ambulatory Limitations: no limitations - History of Present Illness Initial Comments: This is a 32-year-old female with a history of asthma states she's had cough with shortness breath or past 2 days and low-grade fever cough with yellow phlegm some rhinorrhea sinus congestion some left-sided chest discomfort. No nausea vomiting or other symptoms. MD Complaint: shortness of breath, cough - Related Data Home Medications Medication Instructions Recorded Confirmed Cholecalciferol [Vitamin D3] 3,000 unit PO HS 06/19/15 08/19/17 Ferrous Sulfate [Iron (65 MG 325 mg PO HS 06/19/15 08/19/17 Elemental)] ALPRAZolam [Xanax] 0.125 mg PO DAILY PRN 09/26/16 08/19/17 Albuterol Inhaler [Ventolin Hfa 1 - 2 puff INHALATION RT-QID PRN 09/26/16 Inhaler] Zafirlukast [Accolate] 20 mg PO DAILY 06/03/17 08/19/17 Previous Rx's Medication Instructions Recorded Azithromycin [Zithromax Z-pack] 250 mg PO DIRECTED #6 tab 08/19/17 Ipratropium-Albuterol Nebulize 3 ml INHALATION Q6HR PRN #120 neb 08/19/17 [Duoneb 0.5 mg-3 mg/3 ml Soln] predniSONE 20 mg PO BID #10 tab 08/19/17 Allergies Allergy/AdvReac Type Severity Reaction Status Date / Time amoxicillin trihydrate Allergy Rash/Hives Verified 08/19/17 05:02 [From Augmentin] cefaclor [From Ceclor] Allergy Rash/Hives Verified 08/19/17 05:02 latex Allergy Rash/Hives Verified 08/19/17 05:02 nitrofurantoin Allergy Rash/Hives Verified 08/19/17 05:02 [From Macrobid] nitrofurantoin Allergy Rash/Hives Verified 08/19/17 05:02 macrocrystalline [From Macrobid] potassium clavulanate Allergy Rash/Hives Verified 08/19/17 05:02 [From Augmentin] Sulfa (Sulfonamide Allergy Rash/Hives Verified 08/19/17 05:02 Antibiotics) Review of Systems ROS Statement: Those systems with pertinent positive or pertinent negative responses have been documented in the HPI. ROS Other: All systems not noted in ROS Statement are negative. Past Medical History Past Medical History: Asthma, GERD/Reflux Additional Past Medical History / Comment(s): Endometriosis, iron deficiency anemia, frequent UTIs History of Any Multi-Drug Resistant Organisms: None Reported Past Surgical History: Section, Cholecystectomy, Tubal Ligation Additional Past Surgical History / Comment(s): LAPAROSCOPY X2, EGD, LEEP procedure, wisdom teeth 2009 Past Anesthesia/Blood Transfusion Reactions: Motion Sickness, Postoperative Nausea & Vomiting (PONV) Past Psychological History: Anxiety Smoking Status: Never smoker Past Alcohol Use History: None Reported Past Drug Use History: None Reported - Past Family History Mother Family Medical History: Hypertension General Exam - General Exam Comments Initial Comments: This is a well-developed well-nourished awake alert oriented 3 female Limitations: no limitations General appearance: alert, in no apparent distress Head exam: Present: atraumatic, normocephalic, normal inspection Eye exam: Present: normal appearance, PERRL, EOMI. Absent: scleral icterus, conjunctival injection, periorbital swelling ENT exam: Present: TM's normal bilaterally, other (Boggy swollen nasal mucosa oropharynx appears be clear no hyperemia or exudates.) Neck exam: Present: normal inspection. Absent: tenderness, meningismus, lymphadenopathy Respiratory exam: Present: chest wall tenderness (Tenderness palpation over left costal sternal margin. No step-off no crepitation this does reproduce her chest discomfort.), decreased breath sounds Course Vital Signs 08/19/17 08/19/17 08/19/17 04:59 05:22 05:31 Temperature 99.1 F Pulse Rate 92 88 92 Respiratory 20 Rate Blood Pressure 128/66 O2 Sat by Pulse 100 Oximetry - Reevaluation(s) Reevaluation #1: 08/19/17 05:47 Reevaluation patient reveals markedly improved breath sounds. He did note that she ran out of her nebulizer solution. Medical Decision Making - Medical Decision Making Patient is improved after the initial treatment she'll be placed on a short course of steroids I will write for her nebulizer medication for her home nebulizer she'll also be placed on a short course of antibiotics that she is prone to pneumonia. - Lab Data Lab Results 08/19/17 Range/Units 05:10 Influenza Type A RNA Not Detected (Not Detectd) Influenza Type B (PCR) Not Detected (Not Detectd) - EKG Data -: EKG Interpreted by Me EKG shows normal: sinus rhythm [place] [address] QRS duration 84 QT since QTC 336/422 evidence of by atrial enlargement no acute ST-T wave changes.) - Radiology Data Radiology results: image reviewed (I did review the imaging no acute findings are seen.) Disposition Clinical Impression: Asthma with exacerbation, Asthmatic bronchitis, Febrile illness, acute Disposition: HOME SELF-CARE Condition: Good Instructions: Acute Bronchitis (ED), Asthma (ED), Bronchospasm (ED) Prescriptions: Azithromycin [Zithromax Z-pack] 250 mg PO DIRECTED #6 tab Ipratropium-Albuterol Nebulize [Duoneb 0.5 mg-3 mg/3 ml Soln] 3 ml INHALATION Q6HR PRN #120 neb PRN Reason: Dyspnea predniSONE 20 mg PO BID #10 tab Is patient prescribed a controlled substance at d/c from ED?: No Referrals: Kathy Marcano MD [Primary Care Provider] - 1-2 days
[2017-08-19 05:32] VITALS: PULSE 92
--- NOTE | 2017-08-19 05:46 | XR ---
EXAM: XR Chest, 2 Views CLINICAL HISTORY: ITS.REASON XR Reason: cough TECHNIQUE: Frontal and lateral views of the chest. COMPARISON: 06/01/2016 FINDINGS: Lungs: Unremarkable. No consolidation. Pleural space: Unremarkable. No pneumothorax. Heart: Unremarkable. No cardiomegaly. Mediastinum: Unremarkable. Bones/joints: Unremarkable. IMPRESSION: Normal chest radiographs.
[2017-08-19] MEDS ORDERED: predniSONE 50 MG TAB PO STA (05:47)
== END 2017-08-19 05:57 | disposition home or self-care (01) ==
LOC: EC 04:55
DX: J45.901 Unspecified asthma with (acute) exacerbation (principal); I51.7 Cardiomegaly; D50.9 Iron deficiency anemia, unspecified; Z79.899 Other long term (current) drug therapy; Z88.0 Allergy status to penicillin; Z88.1 Allergy status to other antibiotic agents; Z88.2 Allergy status to sulfonamides; Z91.040 Latex allergy status; Z82.49 Family history of ischemic heart disease and other diseases of the circulatory system
CPT/HCPCS: 94640; 93005; 87502; 71046; 99285; J7512

== ENCOUNTER 2017-08-22 12:55 | Emergency (ER) | payer MEDICAID ==
[2017-08-22 12:59] VITALS: RESP 18
[2017-08-22] MEDS ORDERED: IPRATROPIUM-ALBUTEROL 3 ML NEB INHALATION STA (13:24)
[2017-08-22] MEDS ORDERED: SODIUM CHLORIDE 0.9% 1,000 ML IV ONE (13:24)
--- NOTE | 2017-08-22 13:27 | ED ---
SOB HPI - General Chief Complaint: Shortness of Breath Stated Complaint: Weakness, DIff Breathing Time Seen by Provider: 08/22/17 13:16 Source: patient Mode of arrival: ambulatory Limitations: no limitations - History of Present Illness Initial Comments: This is a 32-year-old female to history of asthma who presents emergency department for shortness of breath and cough. She states that she was seen here 3 days ago and diagnosed with bronchitis. She's been on steroids, DuoNeb, and azithromycin. She states that she has improved slightly however is having persistent moderate symptoms and this states that she still feels very winded when she ambulates. She states that the DuoNeb treatments to improve her symptoms however they're short-lived. She states that typically when she has had a mild exacerbation or bronchitis she feels much prove by now. She is also feeling very weak and fatigued and lightheaded area and she states that she's had a call [employer] twice which is atypical for. She was concerned so she decided come emergency department. She does admit to low-grade fevers at home as high as 100. She took a Motrin earlier today with resolution. Does complain of productive cough with yellow sputum. No other acute complaints. - Related Data Home Medications Medication Instructions Recorded Confirmed Cholecalciferol [Vitamin D3] 3,000 unit PO HS 06/19/15 08/22/17 Ferrous Sulfate [Iron (65 MG 325 mg PO HS 06/19/15 08/22/17 Elemental)] ALPRAZolam [Xanax] 0.125 mg PO DAILY PRN 09/26/16 08/22/17 Albuterol Inhaler [Ventolin Hfa 1 - 2 puff INHALATION RT-QID PRN 09/26/16 Inhaler] Zafirlukast [Accolate] 20 mg PO HS 06/03/17 08/22/17 Azithromycin [Zithromax Z-pack] See Taper PO DIRECTED 08/22/17 08/22/17 Multivitamins, Thera [Multivitamin 1 tab PO DAILY 08/22/17 08/22/17 (formulary)] Previous Rx's Medication Instructions Recorded Ipratropium-Albuterol Nebulize 3 ml INHALATION Q6HR PRN #120 neb 08/19/17 [Duoneb 0.5 mg-3 mg/3 ml Soln] predniSONE 20 mg PO BID #10 tab 08/19/17 Allergies Allergy/AdvReac Type Severity Reaction Status Date / Time amoxicillin trihydrate Allergy Rash/Hives Verified 08/22/17 13:26 [From Augmentin] cefaclor [From Ceclor] Allergy Rash/Hives Verified 08/22/17 13:26 latex Allergy Rash/Hives Verified 08/22/17 13:26 nitrofurantoin Allergy Rash/Hives Verified 08/22/17 13:26 [From Macrobid] nitrofurantoin Allergy Rash/Hives Verified 08/22/17 13:26 macrocrystalline [From Macrobid] potassium clavulanate Allergy Rash/Hives Verified 08/22/17 13:26 [From Augmentin] Sulfa (Sulfonamide Allergy Rash/Hives Verified 08/22/17 13:26 Antibiotics) Review of Systems ROS Statement: Those systems with pertinent positive or pertinent negative responses have been documented in the HPI. ROS Other: All systems not noted in ROS Statement are negative. Past Medical History Past Medical History: Asthma, GERD/Reflux Additional Past Medical History / Comment(s): Endometriosis, iron deficiency anemia, frequent UTIs History of Any Multi-Drug Resistant Organisms: None Reported Past Surgical History: Section, Cholecystectomy, Tubal Ligation Additional Past Surgical History / Comment(s): LAPAROSCOPY X2, EGD, LEEP procedure, wisdom teeth 2009 Past Anesthesia/Blood Transfusion Reactions: Motion Sickness, Postoperative Nausea & Vomiting (PONV) Past Psychological History: Anxiety Smoking Status: Never smoker Past Alcohol Use History: None Reported Past Drug Use History: None Reported - Past Family History Mother Family Medical History: Hypertension General Exam - General Exam Comments Initial Comments: Constitutional: Awake alert Appears comfortable Head: Normocephalic atraumatic Eyes: no conjunctival injection No scleral icterus EOMI ENT: TMs clear bilaterally, oropharynx is not erythematous Neck: No JVD Supple Heart: Regular rate rhythm normal S1-S2 no murmurs Lungs: Decreased lung sounds on the right base when compared to the left No wheezing No rales, no evidence for respiratory distress Abdomen: Soft nondistended nontender Extremities: Non edematous DP pulses intact Radial pulses intact Neuro: A&Ox3 No focal neurologic deficits Psych: Appropriate mood and affect Limitations: no limitations Course Vital Signs 08/22/17 08/22/17 08/22/17 12:57 13:33 13:46 Temperature 97.8 F Pulse Rate 60 68 69 Respiratory 18 Rate Blood Pressure 123/66 O2 Sat by Pulse 100 Oximetry 08/22/17 14:49 Temperature Pulse Rate 67 Respiratory 18 Rate Blood Pressure 110/58 O2 Sat by Pulse 67 L Oximetry - Reevaluation(s) Reevaluation #1: 08/22/17 13:48 EKG showing normal sinus rhythm with a rate of 68. There is no abnormal ST segment changes or T-wave inversions. QTC is 401. Other intervals normal. No ectopy. Medical Decision Making - Medical Decision Making This is a 32-year-old female who came to the emergency department for persistent shortness of breath. The patient had an x-ray that did not show any pneumonia. He was unchanged from previous x-ray couple of days ago. She felt improved after DuoNeb and fluids. Blood work reviewed and unremarkable. At this time feel the patient is still suffering from bronchitis and I encouraged her to continue with the medications that were prescribed to her a few days ago. She has persistent symptoms beyond the next few days she is follow up with her primary doctor and have her formal pulmonary function testing performed. Can return if she has severe worsening of her symptoms or development of other symptoms. All questions answered. - Lab Data Result diagrams: 08/22/17 13:42 08/22/17 13:42 Lab Results 08/22/17 08/22/17 08/22/17 Range/Units 13:42 13:42 13:51 WBC 8.0 (3.8-10.6) k/uL RBC 4.63 (3.80-5.40) m/uL Hgb 13.9 (11.4-16.0) gm/dL Hct 40.9 (34.0-46.0) % MCV 88.5 (80.0-100.0) fL MCH 30.0 (25.0-35.0) pg MCHC 33.9 (31.0-37.0) g/dL RDW 12.3 (11.5-15.5) % Plt Count 202 (150-450) k/uL Neutrophils % 83 % Lymphocytes % 11 % Monocytes % 4 % Eosinophils % 1 % Basophils % 0 % Neutrophils # 6.6 (1.3-7.7) k/uL Lymphocytes # 0.9 L (1.0-4.8) k/uL Monocytes # 0.3 (0-1.0) k/uL Eosinophils # 0.1 (0-0.7) k/uL Basophils # 0.0 (0-0.2) k/uL Sodium 142 (137-145) mmol/L Potassium 4.5 (3.5-5.1) mmol/L Chloride 104 (98-107) mmol/L Carbon Dioxide 23 (22-30) mmol/L Anion Gap 15 mmol/L BUN 14 (7-17) mg/dL Creatinine 0.61 (0.52-1.04) mg/dL Est GFR (CKD-EPI)AfAm >90 (>60 ml/min/1.73 sqM) Est GFR (CKD-EPI)NonAf >90 (>60 ml/min/1.73 sqM) Glucose 93 (74-99) mg/dL Calcium 9.9 (8.4-10.2) mg/dL Total Bilirubin 0.6 (0.2-1.3) mg/dL AST 18 (14-36) U/L ALT 30 (9-52) U/L Alkaline Phosphatase 45 (38-126) U/L Total Protein 7.2 (6.3-8.2) g/dL Albumin 4.5 (3.5-5.0) g/dL Urine HCG, Qual Not Detected (Not Detectd) Disposition Clinical Impression: Bronchitis, URI (upper respiratory infection) Disposition: HOME SELF-CARE Condition: Stable Instructions: Acute Bronchitis (ED) Additional Instructions: May use albuterol nebulizer in between Duoneb treatments if necessary. Call your PCP for follow up appointment. Is patient prescribed a controlled substance at d/c from ED?: No Referrals: Kathy Marcano MD [Primary Care Provider] - 1-2 days
[2017-08-22 13:54] LABS: Basophils % (A) 0 %; Eosinophils # (A) 0.1 k/uL (0-0.7); Eosinophils % (A) 1 %; HCT 40.9 % (34.0-46.0); HGB 13.9 gm/dL (11.4-16.0); Lymphocytes # (A) 0.9 k/uL (1.0-4.8); Lymphocytes % (A) 11 %; MCHC 33.9 g/dL (31.0-37.0); MCV 88.5 fL (80.0-100.0); Mean Platelet Volume 8.7; Monocytes # (A) 0.3 k/uL (0-1.0); Monocytes % (A) 4 %; Neutrophils # (A) 6.6 k/uL (1.3-7.7); Neutrophils % (A) 83 %; Platelet Count 202 k/uL (150-450); RBC 4.63 m/uL (3.80-5.40); RDW 12.3 % (11.5-15.5)
[2017-08-22 14:04] LABS: ALT 30 U/L (9-52); AST 18 U/L (14-36); Albumin 4.5 g/dL (3.5-5.0); Alkaline Phosphatase 45 U/L (38-126); Anion Gap 15 mmol/L; Blood Urea Nitrogen 14 mg/dL (7-17); Calcium 9.9 mg/dL (8.4-10.2); Carbon Dioxide 23 mmol/L (22-30); Chloride 104 mmol/L (98-107); Glucose 93 mg/dL (74-99); Potassium 4.5 mmol/L (3.5-5.1); Sodium 142 mmol/L (137-145); Total Bilirubin 0.6 mg/dL (0.2-1.3); Total Protein 7.2 g/dL (6.3-8.2)
--- NOTE | 2017-08-22 14:47 | XR ---
EXAMINATION TYPE: XR chest 2V DATE OF EXAM: 08/22/2017 COMPARISON: Prior chest 08/19/2017 HISTORY: Shortness of breath TECHNIQUE: Frontal and lateral views of the chest are obtained. FINDINGS: There is no focal air space opacity, pleural effusion, or pneumothorax seen. The cardiac silhouette size is within normal limits. The osseous structures are intact. IMPRESSION: No acute cardiopulmonary process.
[2017-08-22 14:50] VITALS: BP 110/58; PULSE 67
[2017-08-22 15:04] VITALS: TEMP 98.7
== END 2017-08-22 15:03 | disposition home or self-care (01) ==
LOC: EC 12:55
DX: J40 Bronchitis, not specified as acute or chronic (principal); J06.9 Acute upper respiratory infection, unspecified; J45.909 Unspecified asthma, uncomplicated; D50.9 Iron deficiency anemia, unspecified; Z87.42 Personal history of other diseases of the female genital tract; Z88.0 Allergy status to penicillin; Z88.1 Allergy status to other antibiotic agents; Z88.2 Allergy status to sulfonamides; Z91.040 Latex allergy status; Z79.899 Other long term (current) drug therapy
CPT/HCPCS: 36415; 71046; 80053; 81025; 85025; 93005; 94640; 96360; 99285

== ENCOUNTER 2017-09-08 06:16 | Day surgery (SDC) | payer MEDICAID ==
[2017-09-02 14:22] VITALS: BMI 23.2
--- NOTE | 2017-09-07 20:39 | P.HPOB ---
History of Present Illness H&P Date: 09/07/17 Chief Complaint: Menorrhagia with irregular cycle This is a 32 y.o. female 3, para 2, who presents for dilatation and curettage with hysteroscopy and Novasure endometrial ablation due to menorrhagia with irregular cycle. Her menses are occuring every month and lasting up to 7 days, with occasioal breakthrough bleeding and large clots on the 2nd and 3rd day of her cycle. Pelvic US showed uterus measurig 10.9 x 6.3 x8.2 cm with endometrial thickness of 6 mm. Right ovary was normal, left ovary was not well-visualized. OB Hx: . History of 3 previous sections. [employer]er/[employer] Hx: No hx of STDs. History of tubal ligation. Social Hx: Engaged. Works at [employer]. Review of Systems Constitutional: Reports fatigue, Denies chills, Denies fever Eyes: denies blurred vision, denies pain Ears, nose, mouth and throat: Reports vertigo Cardiovascular: Denies chest pain, Denies shortness of breath Respiratory: Reports dyspnea (occ) Gastrointestinal: Reports abdominal pain (occ. upper left), Reports constipation , Reports diarrhea, Denies nausea, Denies vomiting Genitourinary: Reports dysmenorrhea, Reports pelvic pain, Reports urinary frequency Menstruation: Reports menses variable, Reports period heavy Musculoskeletal: Reports low back pain Psychiatric: Reports anxiety Endocrine: Reports flushing Hematologic/Lymphatic: Reports easy bruising Past Medical History Past Medical History: Asthma, GERD/Reflux Additional Past Medical History / Comment(s): Endometriosis, iron deficiency anemia, frequent UTIs, hypoglycemic, "blood pressure tends to run low", pt states having surgery d/t recent hx:lower abdominal pain with heavy bleeding and clots History of Any Multi-Drug Resistant Organisms: None Reported Past Surgical History: Section, Cholecystectomy, Tubal Ligation Additional Past Surgical History / Comment(s): LAPAROSCOPY X2, EGD, LEEP procedure, wisdom teeth 2008 Past Anesthesia/Blood Transfusion Reactions: Motion Sickness, Postoperative Nausea & Vomiting (PONV) Additional Past Anesthesia/Blood Transfusion Reaction / Comment(s): mom has ponv Past Psychological History: Anxiety Smoking Status: Never smoker Past Alcohol Use History: Occasional Past Drug Use History: None Reported - Past Family History Mother Family Medical History: Hypertension Additional Family Medical History / Comment(s): MS, superficial blood clots to legs Medications and Allergies Home Medications Medication Instructions Recorded Confirmed Type Cholecalciferol [Vitamin D3] 3,000 unit PO HS 06/19/15 09/08/17 History Ferrous Sulfate [Iron (65 MG 325 mg PO HS 06/19/15 09/08/17 History Elemental)] ALPRAZolam [Xanax] 0.125 mg PO DAILY PRN 09/26/16 09/08/17 History Albuterol Inhaler [Ventolin Hfa 1 - 2 puff INHALATION RT-QID PRN 09/26/16 History Inhaler] Zafirlukast [Accolate] 20 mg PO HS 06/03/17 09/08/17 History Ipratropium-Albuterol Nebulize 3 ml INHALATION Q6HR PRN #120 neb 08/19/17 Rx [Duoneb 0.5 mg-3 mg/3 ml Soln] Multivitamins, Thera [Multivitamin 1 tab PO DAILY 08/22/17 09/08/17 History (formulary)] Beclomethasone Dipropionate [Qvar 2 puff INHALATION DAILY 09/02/17 09/08/17 History 40 mcg] Allergies Allergy/AdvReac Type Severity Reaction Status Date / Time amoxicillin trihydrate Allergy Rash/Hives Verified 09/02/17 14:10 [From Augmentin] cefaclor [From Ceclor] Allergy Rash/Hives Verified 09/02/17 14:10 latex Allergy Rash/Hives Verified 09/02/17 14:10 nitrofurantoin Allergy Rash/Hives Verified 09/02/17 14:10 [From Macrobid] nitrofurantoin Allergy Rash/Hives Verified 09/02/17 14:10 macrocrystalline [From Macrobid] potassium clavulanate Allergy Rash/Hives Verified 09/02/17 14:10 [From Augmentin] Sulfa (Sulfonamide Allergy Rash/Hives Verified 09/02/17 14:10 Antibiotics) Exam Osteopathic Statement: *. No significant issues noted on an osteopathic structural exam other than those noted in the History and Physical/Consult. HEENT: WNL Heart: regular rate adn rhythm Lungs: clear to auscultation bilaterally Abdomen: soft, Non-tneder Pelvic: uterus small, anteverted, non-tender with no adnexal masses or tenderness Extremities: Neg Darshan's. Assessment and Plan (1) Menorrhagia with irregular cycle Current Visit: Yes Status: Acute Code(s): N92.1 - EXCESSIVE AND FREQUENT MENSTRUATION WITH IRREGULAR CYCLE SNOMED Code(s): 953950660 Plan: Proceed with dilatation and curettage with hysteroscopy and Novasure endometrial ablation. I have discussed the risks, benefits, and alternative therapies for the above- mentioned procedure and for both sedation/anesthesia as well as necessary blood products administration, if indicated, as they pertain to this patient. The patient has indicated her understanding and acceptance of the risks and procedures discussed.
[~2017-09-08 06:16] MED LIST: HYDROmorphone 0.5 MG/0.5 ML SYRINGE IVP PRN; LACTATED RINGERS 1,000 ML IV SCH; ONDANSETRON 4 MG/2 ML VIAL IVP PRN; Pre Op ABX Message 1 EACH MISC MISCELLANE ONE; SCOPOLAMINE 1.5MG/72HR PATCH TRANSDERM ONE; fentaNYL (PF) 50 MCG/ML 2 ML AMP IV PRN
[2017-09-08] MEDS ORDERED: PROPOFOL 10 MG/ML 20 ML VIAL IV ONE (07:24)
[2017-09-08] MEDS ORDERED: LIDOCAINE 1% INJ 10MG/ML (20 ML MDV) ONE (07:24)
[2017-09-08] MEDS ORDERED: fentaNYL (PF) 50 MCG/ML 2 ML AMP ONE (07:24)
[2017-09-08] MEDS ORDERED: KETOROLAC 30 MG/ML 1 ML VIAL ONE (07:24)
[2017-09-08] MEDS ORDERED: MIDAZOLAM 2 MG/2 ML VIAL ONE (07:24)
--- NOTE | 2017-09-08 07:55 | P.OP ---
Date of Procedure: 09/08/17 Preoperative Diagnosis: Menorrhagia with irregular cycle Postoperative Diagnosis: Same Procedure(s) Performed: Hysteroscopy with dilation and curettage and NovaSure endometrial ablation Anesthesia: other (Mask general) Surgeon: Yesenia Kong Estimated Blood Loss (ml): 10 Pathology: other (Endometrial curettings) Condition: stable Disposition: same day Indications for Procedure: This is a 32 y.o. female 3, para 2, who presents for dilatation and curettage with hysteroscopy and Novasure endometrial ablation due to menorrhagia with irregular cycle. Her menses are occuring every month and lasting up to 7 days, with occasioal breakthrough bleeding and large clots on the 2nd and 3rd day of her cycle. Pelvic US showed uterus measurig 10.9 x 6.3 x8.2 cm with endometrial thickness of 6 mm. Right ovary was normal, left ovary was not well-visualized. Operative Findings: Uterus is retroverted and sounded to 11 cm. Cervix is sounded to 4-1/2 cm. Upon hysteroscopy, os tubal ostia are visualized. No abnormalities are seen. A moderate amount of endometrial curettings was obtained. No adnexal masses are palpated. Description of Procedure: The patient is taken to the operating room. She is placed in the dorsal lithotomy position after general anesthesia was given. She is prepped and draped in the normal sterile fashion. Bladder is drained with a catheter and then removed. Pelvic exam is performed under anesthesia. Uterus is found to be retroverted with no adnexal masses. She is placed in slight Trendelenburg position. A right angle retractor is used to visualize the cervix. The anterior lip of the cervix is grasped with a single-tooth tenaculum. Cervix is sounded to 4.5 cm. Uterus is sounded to 11 cm. Cervix is gently dilated with Huerta dilators until a hysteroscope could be passed. Hysteroscopy is performed using normal saline. The above noted findings are noted. Next a polyp forceps is introduced. A minimal amount of tissue was obtained. Next medium-sized size sharp curette was placed. A moderate amount of endometrial curettings were obtained. Next NovaSure array was inserted into the endometrial cavity. Length was set at 6.5 cm and width was determined to be 4.8 cm. Next cavity assessment was completed and passed on the first try. Next NovaSure array was fired at 172 W for 67 seconds. Next the array was removed, inspected and then discarded. Next the hysteroscope was reinserted. Uniform charring was noted. Pictures were taken. Hysteroscope was removed. Single-tooth tenaculum was removed from the anterior lip of the cervix. Minimal bleeding was noted. All other instruments removed from the vagina. Sponge counts were correct. Patient is taken to recovery room in stable condition.
[2017-09-08 08:08] VITALS: TEMP 97.3
[2017-09-08 09:03] VITALS: BP 112/64; RESP 18
[2017-09-08 09:28] VITALS: PULSE 60
== END 2017-09-08 09:48 | disposition home or self-care (01) ==
LOC: OR 06:16
PROVIDERS: ATTEND Obstetrics & Gynecology
DX: N92.0 Excessive and frequent menstruation with regular cycle (principal); N92.6 Irregular menstruation, unspecified; Z87.42 Personal history of other diseases of the female genital tract; J45.909 Unspecified asthma, uncomplicated; K21.9 Gastro-esophageal reflux disease without esophagitis; D50.9 Iron deficiency anemia, unspecified; F41.9 Anxiety disorder, unspecified; Z87.440 Personal history of urinary (tract) infections; Z79.51 Long term (current) use of inhaled steroids; Z79.899 Other long term (current) drug therapy; Z88.0 Allergy status to penicillin; Z88.2 Allergy status to sulfonamides; Z88.1 Allergy status to other antibiotic agents; Z91.040 Latex allergy status
CPT/HCPCS: 81025; 88305

== ENCOUNTER → 2017-09-23 | Outpatient (CLI) | payer MEDICAID, OTHER ==
--- NOTE | 2017-09-23 18:01 | US ---
EXAMINATION TYPE: US pelvis complete transvag DATE OF EXAM: 09/23/2017 COMPARISON: us 06/03/2017 CLINICAL HISTORY: R10.2 Pelvic pain. Patient had a D&C and ablation done 2 weeks ago. Bright red blee ding and pelvic pain ever since. TECHNIQUE: . Transabdominal sonographic images of the pelvis were acquired. Transvaginal sonographi c images were medically necessary to better assess the following anatomy: Endometrium Date of LMP: 2 weeks ago EXAM MEASUREMENTS: Uterus: 11.7 x 5.2 x 6.4 cm Endometrial Stripe: 1.0 cm Right Ovary: 3.3 x 2.0 x 2.6 cm Left Ovary: 3.4 x 2.0 x 2.9 cm 1. Uterus: Anteverted Nabothian cyst visualized 2. Endometrium: Fluid visualized 3. Right Ovary: Follicles visualized, wnl 4. Left Ovary: Follicles visualized, wnl 5. Bilateral Adnexa: wnl 6. Posterior cul-de-sac: wnl IMPRESSION: There is a dominant 12 mm cervical cyst. No endometrial thickening. No adnexal mass or fr ee fluid.
== END | disposition home or self-care (01) ==
LOC: RADUSMAIN 16:03
PROVIDERS: ATTEND Obstetrics & Gynecology
DX: N88.8 Other specified noninflammatory disorders of cervix uteri (principal)
CPT/HCPCS: 76830; 76856

== ENCOUNTER 2017-11-14 05:50 | Inpatient (IN) | payer MEDICAID, OTHER ==
[2017-11-07 12:54] VITALS: BMI 22.7
--- NOTE | 2017-11-13 19:40 | P.HPOB ---
History of Present Illness H&P Date: 11/13/17 Chief Complaint: Menorrhagia with irregular cycle, pelvic pain This is a 32-year-old female 3 para 3 who presents for total abdominal hysterectomy with bilateral salpingectomy secondary to menorrhagia with irregular cycle. She had a recent NovaSure endometrial ablation and has been bleeding ever since. She did try antibiotics and Provera with no relief of her symptoms and wishes permanent surgical treatment. In addition she continues to have severe pelvic pain and painful menses. Obstetrical history: . History of 3 deliveries. Her second was a twin delivery. Gynecologic history: No history of sexual transmitted diseases. She has had a tubal ligation. Social history: She is engaged. She works part-time at [employer]. Review of Systems Constitutional: Denies chills, Denies fever Eyes: denies blurred vision, denies pain Ears, nose, mouth and throat: Denies headache, Denies sore throat Cardiovascular: Denies chest pain, Denies shortness of breath Respiratory: Denies cough Gastrointestinal: Denies abdominal pain, Denies diarrhea, Denies nausea, Denies vomiting Genitourinary: Reports pelvic pain Menstruation: Reports menses 8 or > days, Reports menses variable Musculoskeletal: Reports low back pain Integumentary: Denies pruritus, Denies rash Neurological: Denies numbness, Denies weakness Endocrine: Reports fatigue, Denies weight change Past Medical History Past Medical History: Asthma, GERD/Reflux Additional Past Medical History / Comment(s): Endometriosis, iron deficiency anemia, frequent UTIs History of Any Multi-Drug Resistant Organisms: None Reported Past Surgical History: Section (Times 3), Cholecystectomy, Tubal Ligation, Uterine Ablation Additional Past Surgical History / Comment(s): LAPAROSCOPY X2, EGD, LEEP procedure, wisdom teeth 2008 Past Anesthesia/Blood Transfusion Reactions: Motion Sickness, Postoperative Nausea & Vomiting (PONV) Past Psychological History: No Psychological Hx Reported Smoking Status: Never smoker Past Alcohol Use History: None Reported Past Drug Use History: None Reported - Past Family History Mother Family Medical History: Hypertension Medications and Allergies Home Medications Medication Instructions Recorded Confirmed Type Cholecalciferol [Vitamin D3] 3,000 unit PO HS 06/19/15 11/07/17 History Ferrous Sulfate [Iron (65 MG 325 mg PO HS 06/19/15 11/07/17 History Elemental)] ALPRAZolam [Xanax] 0.125 mg PO DAILY PRN 09/26/16 11/07/17 History Albuterol Inhaler [Ventolin Hfa 1 - 2 puff INHALATION RT-QID PRN 09/26/16 History Inhaler] Zafirlukast [Accolate] 20 mg PO HS 06/03/17 11/07/17 History Ipratropium-Albuterol Nebulize 3 ml INHALATION Q6HR PRN #120 neb 08/19/17 Rx [Duoneb 0.5 mg-3 mg/3 ml Soln] Multivitamins, Thera [Multivitamin 1 tab PO DAILY 08/22/17 11/07/17 History (formulary)] Beclomethasone Dipropionate [Qvar 2 puff INHALATION DAILY 09/02/17 11/07/17 History 40 mcg] Allergies Allergy/AdvReac Type Severity Reaction Status Date / Time amoxicillin trihydrate Allergy Rash/Hives Verified 11/07/17 12:47 [From Augmentin] cefaclor [From Ceclor] Allergy Rash/Hives Verified 11/07/17 12:47 latex Allergy Rash/Hives Verified 11/07/17 12:47 nitrofurantoin Allergy Rash/Hives Verified 11/07/17 12:47 [From Macrobid] nitrofurantoin Allergy Rash/Hives Verified 11/07/17 12:47 macrocrystalline [From Macrobid] potassium clavulanate Allergy Rash/Hives Verified 11/07/17 12:47 [From Augmentin] Sulfa (Sulfonamide Allergy Rash/Hives Verified 11/07/17 12:47 Antibiotics) Exam Osteopathic Statement: *. No significant issues noted on an osteopathic structural exam other than those noted in the History and Physical/Consult. HEENT: Within normal limits Heart: Regular rate and rhythm Lungs: Clear to auscultation bilaterally Abdomen: Soft, nontender Pelvic exam: Uterus is retroverted, tender, with no adnexal masses noted. Bilateral adnexal tenderness is noted. Bloody/brown vaginal discharge is noted. Extremities: Negative Homans Assessment and Plan (1) Pelvic pain Status: Acute Code(s): R10.2 - PELVIC AND PERINEAL PAIN SNOMED Code(s): 47384967 (2) Menorrhagia with irregular cycle Status: Acute Code(s): N92.1 - EXCESSIVE AND FREQUENT MENSTRUATION WITH IRREGULAR CYCLE SNOMED Code(s): 600272845 Plan: Proceed with total abdominal hysterectomy with bilateral salpingectomy. I have discussed the risks, benefits, and alternative therapies for the above- mentioned procedure and for both sedation/anesthesia as well as necessary blood products administration, if indicated, as they pertain to this patient. The patient has indicated her understanding and acceptance of the risks and procedures discussed.
[~2017-11-14 05:50] MED LIST changes: +DEXAMETHASONE SOD PHOSPHATE 10 MG/ML 1 ML VIAL IV ONE; -HYDROmorphone 0.5 MG/0.5 ML SYRINGE IVP PRN; -LACTATED RINGERS 1,000 ML IV SCH; +MIDAZOLAM 2 MG/2 ML VIAL IV PRN; +ONDANSETRON 4 MG/2 ML VIAL IVP ONE; -ONDANSETRON 4 MG/2 ML VIAL IVP PRN; -Pre Op ABX Message 1 EACH MISC MISCELLANE ONE; +ceFAZolin IN SWFI 2 GM/20 ML SYRINGE IVP ONE; -fentaNYL (PF) 50 MCG/ML 2 ML AMP IV PRN
[2017-11-14] MEDS: LACTATED RINGERS 1,000 ML IV SCH (06:23)
[2017-11-14] MEDS ORDERED: GENTAMICIN 260 MG in SODIUM CHLORIDE 0.9% 100 ML IVPB ONE (06:45)
[2017-11-14] MEDS ORDERED: CLINDAMYCIN 900 MG in DEXTROSE 5% IN WATER 50 ML IVPB ONE ×2 (06:45)
[2017-11-14] MEDS ORDERED: GLYCOPYRROLATE 0.2 MG/ML 2 ML VIAL ONE (07:31)
[2017-11-14] MEDS ORDERED: PROPOFOL 10 MG/ML 20 ML VIAL IV ONE (07:31)
[2017-11-14] MEDS ORDERED: ONDANSETRON 4 MG/2 ML VIAL ONE (07:31)
[2017-11-14] MEDS ORDERED: MIDAZOLAM 2 MG/2 ML VIAL ONE (07:31)
[2017-11-14] MEDS ORDERED: fentaNYL (PF) 50 MCG/ML 2 ML AMP ONE (07:31)
[2017-11-14] MEDS ORDERED: NEOSTIGMINE 1 MG/ML 10 ML VIAL ONE (07:31)
[2017-11-14] MEDS ORDERED: MORPHINE SULFATE (PF) 0.3 MG/0.3 ML SYR ONE (07:31)
[2017-11-14] MEDS ORDERED: SUCCINYLCHOLINE CHLORIDE 100 MG/5 ML SYR IV ONE (07:31)
[2017-11-14] MEDS ORDERED: ROCURONIUM BROMIDE 10 MG/ML 10 ML VIAL IV ONE (07:31)
[2017-11-14] MEDS ORDERED: LIDOCAINE 1% INJ 10MG/ML (20 ML MDV) ONE (07:31)
[2017-11-14] MEDS ORDERED: LACTATED RINGERS 1,000 ML IV ONE (08:09)
[2017-11-14] MEDS ORDERED: NALOXONE 0.4 MG/ML 1 ML VIAL IV PRN (08:22)
[2017-11-14] MEDS ORDERED: KETOROLAC 30 MG/ML 1 ML VIAL IVP PRN (08:22)
[2017-11-14] MEDS ORDERED: diphenhydrAMINE 50 MG/ML 1 ML VIAL IVP PRN ×2 (08:22→10:43)
[2017-11-14] MEDS ORDERED: NALBUPHINE 10 MG/ML VIAL (10ML MDV) IV PRN (08:22)
--- NOTE | 2017-11-14 08:53 | P.OP ---
Date of Procedure: 11/14/17 Preoperative Diagnosis: Menorrhagia with irregular cycle, failed ablation Pelvic pain Postoperative Diagnosis: Same Procedure(s) Performed: Total abdominal hysterectomy with bilateral salpingectomy Anesthesia: GETA, spinal (Duramorph spinal) Surgeon: Yesenia Kong Inking Machine Tender #1: Madie Zavaleta Estimated Blood Loss (ml): 100 Pathology: other (Uterus with cervix and bilateral tubes) Condition: stable Disposition: floor Indications for Procedure: This is a 32-year-old female 3 para 3 who presents for total abdominal hysterectomy with bilateral salpingectomy secondary to menorrhagia with irregular cycle. She had a recent NovaSure endometrial ablation and has been bleeding ever since. She did try antibiotics and Provera with no relief of her symptoms and wishes permanent surgical treatment. In addition she continues to have severe pelvic pain and painful menses. Operative Findings: Slightly bulky and boggy uterus. Normal ovaries and tubes. Evidence of previous tubal ligation noted. Small adhesions from the bladder to the uterus. Description of Procedure: The patient is taken to the operating room where she is placed in the dorsal supine position. She is prepped and draped in the normal sterile fashion including De Los Santos catheter insertion and vaginal prep. A Pfannenstiel skin incision is made through the previous laparotomy scar with a scalpel. A second knife was used to carry the incision down to the underlying layer of fascia. The fascia was nicked in the midline with a scalpel and then extended laterally bilaterally with Simon scissors. The superior aspect of the fascial incision was grasped with Ministerio clamps, elevated off the underlying rectus muscle in the midline and then cut with Simon scissors. The inferior aspect of the fascial incision was grasped with Ministerio clamps, elevated off the underlying rectus muscle in the midline and then cut with Simon scissors. Next the peritoneum was identified and entered sharply with Simon scissors. It is extended superiorly and in fairly with Metzenbaum scissors with good visualization of underlying structures. Next the [employer] retractor is placed in the bladder blade was inserted. The bowels were packed with a 3 yard laparotomy sponge. Next the uterus is brought up incision and the corneal regions are grasped with Yuni clamps on both sides. Next the fallopian tube on the left side is brought up to the incision and the mesosalpinx is clamped with a Harrison clamp. This is cut with Simon scissors and then sutured with 0 Vicryl suture in Harrison transfixion stitch. The remaining mesosalpinx is also clamped with a Harrison clamp, cut with Simon scissors, and sutured with 0 Vicryl suture in Harrison transfixion stitches. Next the uterine ovarian ligament is clamped with a Harrison clamp, cut with Simon scissors, and then sutured with 0 Vicryl suture in Harrison transfixion stitch. The same procedure is carried out on the right side. The uterine arteries are then clamped with Harrison clamp on either side. The vesicouterine peritoneum was sharply dissected away from the bladder with Metzenbaum scissors and pushed inferiorly. There were some fine adhesions from the bladder to the lower uterine segment of the uterus. The uterine arteries are then cut with Simon scissors, and sutured with 0 Vicryl suture in Harrison transfixion stitches. Next the cardinal ligaments were clamped on either side with Harrison clamp, cut with Simon scissors, and sutured with 0 Vicryl suture in Harrison transfixion stitches. The uterosacral ligaments are clamped on either side with Harrison clamps, cut with Simon scissors, and sutured with 0 Vicryl suture in Harrison transfixion stitches on either side. The edges of the vaginal cuff were clamped on either side with a Harrison clamp, cut with Simon scissors, and sutured with 0 Vicryl suture in Harrison transfixion stitches and held on either side. The vaginal mucosa was then cut just below the level of the cervix and the specimen is removed from the field. The edges of the vaginal cuff were held with Ministerio clamps. Next the previously held corners of each side of the vaginal cuff were then whipstitched along the connective tissue on either side and brought through the corner of the cuff and tied. Next the vaginal cuff was sutured with 0 Vicryl suture in a running locked fashion. Hemostasis was noted. Copious irrigation is carried out with warm saline. Excellent hemostasis is noted. Both ovaries appeared normal. No evidence of endometriosis was visualized. All sponges are removed from the abdomen. The peritoneum is then closed with 0 Vicryl suture in a running fashion. The muscle was then reapproximated with 0 Vicryl suture in interrupted fashion. The fascia layer is then closed with 0 PDS suture in a running fashion with the knots buried on either side and in the midline. Next the subcutaneous tissues closed with 2-0 Vicryl suture in a running fashion. The skin is closed with becki. All sponge and needle counts are correct and the patient is taken to recovery room in stable condition.
[2017-11-14] MEDS: HYDROmorphone 0.5 MG/0.5 ML SYRINGE IVP PRN ×3 (09:18→09:49)
[2017-11-14] MEDS ORDERED: PROMETHAZINE INJ 25 MG/ML 1 ML VIAL IVPB ONE (09:29)
[2017-11-14] MEDS ORDERED: MEPERIDINE 50 MG/ML SYRINGE IVP ONE (10:23)
[2017-11-14] MEDS ORDERED: ALPRAZolam 0.25 MG TAB PO PRN (10:43)
[2017-11-14] MEDS ORDERED: ALBUTEROL NEBULIZED 2.5 MG/3 ML INHALATION PRN (10:43)
[2017-11-14] MEDS ORDERED: ZOLPIDEM 5 MG TAB PO PRN (10:43)
[2017-11-14] MEDS ORDERED: METOCLOPRAMIDE 5 MG/ML 2 ML VIAL IVP PRN (10:43)
[2017-11-14] MEDS ORDERED: ONDANSETRON 4 MG/2 ML VIAL IVP PRN (10:43)
[2017-11-14] MEDS ORDERED: IPRATROPIUM-ALBUTEROL 3 ML NEB INHALATION PRN (10:43)
[2017-11-14] MEDS: SENNOSIDES-DOCUSATE SODIUM 1 EACH TAB PO SCH ×2 (13:25→20:02)
[2017-11-14] MEDS: IBUPROFEN 600 MG TAB PO PRN ×2 (13:26→20:02)
[2017-11-14] MEDS: SIMETHICONE 80 MG CHEWABLE PO PRN (13:26)
[2017-11-14] MEDS: KETOROLAC 30 MG/ML 1 ML VIAL IVP PRN (16:37)
[2017-11-14] MEDS: MONTELUKAST 5 MG CHEWABLE PO SCH (20:04)
[2017-11-15] MEDS: KETOROLAC 30 MG/ML 1 ML VIAL IVP PRN ×3 (06:08→18:38)
[2017-11-15] MEDS: LACTATED RINGERS 1,000 ML IV SCH (06:20)
[2017-11-15 06:48] LABS: Basophils % (A) 0 %; Eosinophils % (A) 1 %; HCT 34.1 % (34.0-46.0); HGB 11.3 gm/dL (11.4-16.0); Lymphocytes # (A) 1.2 k/uL (1.0-4.8); Lymphocytes % (A) 25 %; MCH 29.9 pg (25.0-35.0); MCHC 33.1 g/dL (31.0-37.0); MCV 90.3 fL (80.0-100.0); Mean Platelet Volume 9.2; Monocytes # (A) 0.3 k/uL (0-1.0); Monocytes % (A) 7 %; Neutrophils # (A) 3.1 k/uL (1.3-7.7); Neutrophils % (A) 65 %; Platelet Count 153 k/uL (150-450); RBC 3.77 m/uL (3.80-5.40); RDW 12.9 % (11.5-15.5); WBC 4.7 k/uL (3.8-10.6)
--- NOTE | 2017-11-15 07:16 | P.PN ---
Progress Note - Text 11/15 709am 32-year-old female status post total abdominal hysterectomy by Dr. werner. Patient had a spinal Duramorph for postop pain control, she was seen this morning with a VAS of 3, no complains of nausea vomiting minor pruritus. Doing very well
[2017-11-15] MEDS ORDERED: BUDESONIDE 0.5 MG/2 ML NEBU INHALATION SCH (08:00)
[2017-11-15] MEDS ORDERED: HYDROcodone/APAP 7.5-325MG 1 EACH TAB PO PRN (08:25)
[2017-11-15] MEDS ORDERED: HYDROcodone/APAP 5-325MG 1 EACH TAB PO PRN (08:25)
--- NOTE | 2017-11-15 08:28 | P.PN ---
Subjective Progress Note Date: 11/15/17 Principal diagnosis: Status post SHELDON with bilateral salpingectomy postoperative day #1 Patient is doing well. She is ambulating. She is passing flatus. She has not passed any bowel movement yet. She is having scant bloody vaginal discharge. Pain is fairly well controlled with Toradol. Objective - Vital Signs Vital signs: Vital Signs Temp 98.4 F 11/15/17 08:08 Pulse 73 11/15/17 08:08 Resp 16 11/15/17 08:08 BP 102/66 11/15/17 08:08 Pulse Ox 99 11/15/17 08:08 Intake & Output 11/14/17 11/15/17 11/15/17 18:59 06:59 18:59 Intake Total 1412.5 Output Total 1225 1600 100 Balance 187.5 -1600 -100 Weight 52.163 kg Intake: IV 1412.5 Output: Urine 1125 1600 100 Uretheral (De Los Santos) 100 Estimated Blood Loss 100 Other: Voiding Method Indwelling Catheter Indwelling Catheter - Constitutional General appearance: Present: cooperative, no acute distress - Gastrointestinal Gastrointestinal Comment(s): Incision is clean dry and intact with becki in place. General gastrointestinal: Present: normal bowel sounds - Labs CBC & Chem 7: 11/15/17 06:30 Labs: Abnormal Lab Results - Last 24 Hours (Table) 11/15/17 Range/Units 06:30 RBC 3.77 L (3.80-5.40) m/uL Hgb 11.3 L (11.4-16.0) gm/dL Assessment and Plan (1) Pelvic pain Current Visit: No Status: Acute Code(s): R10.2 - PELVIC AND PERINEAL PAIN SNOMED Code(s): 90751415 (2) Menorrhagia with irregular cycle Current Visit: No Status: Acute Code(s): N92.1 - EXCESSIVE AND FREQUENT MENSTRUATION WITH IRREGULAR CYCLE SNOMED Code(s): 064667139 Plan: Will Hep-Lock IV and switched oral pain medications today. Will advance diet as tolerated at lunch. Encouraged ambulation.
[2017-11-15] MEDS: SENNOSIDES-DOCUSATE SODIUM 1 EACH TAB PO SCH ×2 (09:49→21:17)
[2017-11-15] MEDS: SIMETHICONE 80 MG CHEWABLE PO PRN ×2 (11:10→21:15)
[2017-11-15] MEDS: ACETAMINOPHEN TAB 325 MG TAB PO PRN ×2 (16:13→21:15)
[2017-11-15] MEDS: MONTELUKAST 5 MG CHEWABLE PO SCH (21:17)
[2017-11-16] MEDS: KETOROLAC 30 MG/ML 1 ML VIAL IVP PRN ×2 (00:41→08:03)
[2017-11-16 00:52] VITALS: RESP 16
[2017-11-16] MEDS: LACTATED RINGERS 1,000 ML IV SCH (07:38)
[2017-11-16] MEDS: SENNOSIDES-DOCUSATE SODIUM 1 EACH TAB PO SCH (08:02)
--- NOTE | 2017-11-16 08:41 | P.DS ---
Providers Date of admission: 11/14/17 05:50 Expected date of discharge: 11/16/17 Attending physician: Yesenia Kong Primary care physician: Kathy Marcano - Discharge Diagnosis(es) (1) Pelvic pain Current Visit: Yes Status: Acute (2) Menorrhagia with irregular cycle Current Visit: Yes Status: Acute Hospital Course: This is a 32-year-old female who underwent a total abdominal hysterectomy with bilateral salpingectomy on 11/14/2017. Her post operative course has been uncomplicated. She is passing flatus and bowel movement. She is urinating without difficulty. Her pain is fairly well controlled with ibuprofen and Tylenol. She is complaining of a headache this morning but feels it is related to sleeping in the bed. Bleeding is minimal. Vital signs are stable. Abdomen is soft with positive bowel sounds 4. Incision is clean dry and intact with becki in place. Extremities show negative Homans. Impression is status post total abdominal hysterectomy with bilateral salpingectomy postoperative day #2. Plan is to discharge home today. Mcrae Helena will be removed and Steri-Strips placed prior to discharge. Routine postoperative and instructions are given. She is advised to follow-up in the office in 1 week for a postoperative check. She is advised to call the office if she has any further questions or concerns prior to her appointment time. She will be given a prescription for ibuprofen. Procedures: Total abdominal hysterectomy with bilateral salpingectomy on 11/14/2017 Patient Condition at Discharge: Stable Plan - Discharge Summary Discharge Rx Participant: Yes New Discharge Prescriptions: New Ibuprofen [Motrin] 600 mg PO Q6HR PRN #60 tab PRN Reason: Mild Discomfort Continue Cholecalciferol [Vitamin D3] 3,000 unit PO HS ALPRAZolam [Xanax] 0.125 mg PO DAILY PRN PRN Reason: Anxiety Albuterol Inhaler [Ventolin Hfa Inhaler] 1 - 2 puff INHALATION RT-QID PRN PRN Reason: Shortness Of Breath Zafirlukast [Accolate] 20 mg PO HS Multivitamins, Thera [Multivitamin (formulary)] 1 tab PO DAILY Beclomethasone Dipropionate [Qvar 40 mcg] 2 puff INHALATION RT-DAILY Ipratropium-Albuterol Nebulize [Duoneb 0.5 mg-3 mg/3 ml Soln] 3 ml INHALATION RT-Q6H PRN PRN Reason: Dyspnea Discontinued Ferrous Sulfate [Iron (65 MG Elemental)] 325 mg PO HS Discharge Medication List Cholecalciferol [Vitamin D3] 3,000 unit PO HS 06/19/15 [History] ALPRAZolam [Xanax] 0.125 mg PO DAILY PRN 09/26/16 [History] Albuterol Inhaler [Ventolin Hfa Inhaler] 1 - 2 puff INHALATION RT-QID PRN [History] Zafirlukast [Accolate] 20 mg PO HS 06/03/17 [History] Multivitamins, Thera [Multivitamin (formulary)] 1 tab PO DAILY 08/22/17 [History ] Beclomethasone Dipropionate [Qvar 40 mcg] 2 puff INHALATION RT-DAILY 09/02/17 [ History] Ipratropium-Albuterol Nebulize [Duoneb 0.5 mg-3 mg/3 ml Soln] 3 ml INHALATION RT -Q6H PRN 11/14/17 [History] Ibuprofen [Motrin] 600 mg PO Q6HR PRN #60 tab 11/16/17 [Rx] Follow up Appointment(s)/Referral(s): Yesenia Kong DO [Doctor of Osteopathic Medicine] - 1 Week Activity/Diet/Wound Care/Special Instructions: Activity as tolerated. Diet as tolerated. May shower, but no tub baths for 1 week. No intercourse for 6 weeks. No heavy lifting. Discharge Disposition: HOME SELF-CARE
[2017-11-16 08:57] VITALS: BP 107/70; PULSE 78; TEMP 98.1
== END 2017-11-16 10:45 | disposition home or self-care (01) | DRG 743 ==
LOC: 2ORMAIN 05:50 → 3SUR 10:09 → 6PED 11-15 08:37
PROVIDERS: ADMIT Obstetrics & Gynecology; ATTEND Obstetrics & Gynecology
PROC: 0UT90ZZ Resection of Uterus, Open Approach (ICD-10-PCS; principal; 2017-11-14 07:30)
PROC: 0UT70ZZ Resection of Bilateral Fallopian Tubes, Open Approach (ICD-10-PCS; principal; 2017-11-14 07:30)
DX: N92.0 Excessive and frequent menstruation with regular cycle (principal); J45.909 Unspecified asthma, uncomplicated; K21.9 Gastro-esophageal reflux disease without esophagitis; Z82.49 Family history of ischemic heart disease and other diseases of the circulatory system; Z87.440 Personal history of urinary (tract) infections; Z98.51 Tubal ligation status; Z98.891 History of uterine scar from previous surgery; Z88.2 Allergy status to sulfonamides; Z88.1 Allergy status to other antibiotic agents; Z91.040 Latex allergy status; Z79.899 Other long term (current) drug therapy
CPT/HCPCS: 81025; 85025; 88307

== ENCOUNTER → 2017-12-30 | Outpatient (CLI) | payer MEDICAID, OTHER ==
--- NOTE | 2017-12-30 09:50 | US ---
EXAMINATION TYPE: US pelvic complete DATE OF EXAM: 12/30/2017 COMPARISON: US CLINICAL HISTORY: R10.2 Pelvic pain. Right pelvic pain; post hysterectomy 8-6-18l TECHNIQUE: . Transabdominal sonographic images of the pelvis were acquired. Date of LMP: NA per surgical history EXAM MEASUREMENTS: Right Ovary: 4.5 x 3.3 x1.6 cm Left Ovary: 4.3 x 2.6 x 1.6 cm 1.Vaginal cuff: small Nabothian cyst noted = 0.7 x 0.8 x 0.7cm 2. Right Ovary: multiple follicles with largest as complex cyst with peripheral ring of color flow = 1.2 x 1.2 x 1.0cm 3. Left Ovary: small follicles Spectral, color and waveform Doppler imaging shows good arterial and venous flow within the ovaries ; there is no evidence for ovarian torsion. 4. Bilateral Adnexa: wnl 5. Posterior cul-de-sac: small amount of free fluid = 0.9 x 1.0 x 1.1cm Patient stated right pelvic pain was at probe level for right ovary. IMPRESSION: 1. Complex right ovarian cyst reflect a hemorrhagic cyst. Lesion of other etiology is not excluded. F ollow-up study in 6 weeks is advised.
== END ==
LOC: RADUSWWP 08:54
PROVIDERS: ATTEND Obstetrics & Gynecology
DX: N83.201 Unspecified ovarian cyst, right side (principal)
CPT/HCPCS: 76856

== ENCOUNTER → 2018-01-16 | Outpatient (CLI) | payer MEDICAID, OTHER ==
--- NOTE | 2018-01-16 11:14 | US ---
EXAMINATION TYPE: US pelvic complete DATE OF EXAM: 01/16/2018 COMPARISON: US CLINICAL HISTORY: R10.2 Pelvic Pain. follow up study TECHNIQUE: Transabdominal (TA). Date of LMP: hysterectomy EXAM MEASUREMENTS: Uterus: Surgically absent cm Endometrial Stripe: Surgically absent cm Right Ovary: 3.5 x 1.4 x 3.7 cm Left Ovary: 3.1 x 1.4 x 2.4 cm 1. Uterus: Surgically absent 2. Endometrium: Surgically absent 3. Right Ovary: multiple small follicles 4. Left Ovary: multiple small follicles 5. Bilateral Adnexa: wnl 6. Posterior cul-de-sac: no free fluid Vascular flow seen to both ovaries. IMPRESSION: 1. Resolution the previously seen right adnexal dominant follicle/cyst. Multiple physiologic follicle s are seen bilaterally. 2. Surgical absence of the uterus.
== END | disposition home or self-care (01) ==
LOC: RADUSWWP 10:33
PROVIDERS: ATTEND Obstetrics & Gynecology
DX: R10.2 Pelvic and perineal pain (principal)
CPT/HCPCS: 76856

== ENCOUNTER 2018-01-19 21:13 | Emergency (ER) | payer MEDICAID, OTHER ==
[2018-01-19 21:37] VITALS: RESP 18
[2018-01-19] MEDS ORDERED: DICYCLOMINE 10 MG CAP PO STA (22:48)
[2018-01-19 23:12] LABS: Appearance,Urine Clear (Clear); Basophils % (A) 0 %; Bilirubin,Urine Negative (Negative); Blood,Urine Negative (Negative); Color,Urine Yellow; Eosinophils # (A) 0.1 k/uL (0-0.7); Eosinophils % (A) 2 %; Glucose,Urine (UA) Negative (Negative); HCT 41.1 % (34.0-46.0); Ketones,Urine Negative (Negative); Leukocyte Esterase,Urine Negative (Negative); Lymphocytes # (A) 1.6 k/uL (1.0-4.8); Lymphocytes % (A) 37 %; MCH 30.7 pg (25.0-35.0); MCV 90.5 fL (80.0-100.0); Mean Platelet Volume 9.3; Monocytes # (A) 0.3 k/uL (0-1.0); Monocytes % (A) 6 %; Neutrophils # (A) 2.3 k/uL (1.3-7.7); Neutrophils % (A) 53 %; Nitrite,Urine Negative (Negative); Platelet Count 175 k/uL (150-450); Protein,Urine Negative (Negative); RBC 4.54 m/uL (3.80-5.40); RDW 12.2 % (11.5-15.5); Specific Gravity,Urine 1.014 (1.001-1.035); Urobilinogen,Urine <2.0 mg/dL (<2.0); WBC 4.3 k/uL (3.8-10.6)
[2018-01-19 23:22] LABS: ALT 23 U/L (9-52); AST 17 U/L (14-36); Albumin 4.6 g/dL (3.5-5.0); Alkaline Phosphatase 57 U/L (38-126); Amylase 66 U/L (30-110); Anion Gap 8 mmol/L; Blood Urea Nitrogen 14 mg/dL (7-17); Calcium 9.5 mg/dL (8.4-10.2); Carbon Dioxide 26 mmol/L (22-30); Chloride 106 mmol/L (98-107); Glucose 93 mg/dL (74-99); Lipase 111 U/L (23-300); Potassium 4.1 mmol/L (3.5-5.1); Sodium 140 mmol/L (137-145); Total Bilirubin 0.6 mg/dL (0.2-1.3); Total Protein 7.4 g/dL (6.3-8.2)
--- NOTE | 2018-01-19 23:41 | CT ---
EXAMINATION TYPE: CT abdomen pelvis w con DATE OF EXAM: 01/19/2018 COMPARISON: None HISTORY: Rt sided abd pain CT DLP: 399.60 mGycm Automated exposure control for dose reduction was used. TECHNIQUE: Helical acquisition of images was performed from the lung bases through the pelvis. CONTRAST: Performed without Oral Contrast and with IV Contrast, patient injected with 100 mL of Isovue 300. FINDINGS: Lung bases are clear. There is no pleural effusion. Heart size is normal. There is no pericardial eff usion. Liver spleen pancreas appear normal. There are clips from cholecystectomy. Stomach appears normal. Th e bile ducts are not dilated. There is no adrenal mass. Kidneys show satisfactory contrast opacification. There is no hydronephrosi s. There is no retroperitoneal adenopathy. Bladder distends smoothly. Ureters are not dilated. There is normal contrast excretion. I see no mesenteric edema or adenopathy. There is no evidence of a bowel obstruction. A short segment of the appendix is seen and appears normal. There is a rounded 3.4 x 2.5 cm structure inferior to th e cecum in the right lower quadrant consistent with the right ovary. There is irregular 1.8 cm cyst o n the right ovary. There is no pelvic lymphadenopathy. There is no evidence of a bowel obstruction. I see no intestinal wall thickening. IMPRESSION: APPENDIX IS PARTLY VISUALIZED AND APPEARS NORMAL. I DO NOT SEE EVIDENCE OF APPENDICITIS. RIGHT OVARIA N CYST. I do not see a definite cause for right-sided pain.
--- NOTE | 2018-01-20 00:07 | ED ---
Abdominal Pain HPI - General Chief Complaint: Abdominal Pain Stated Complaint: abdominal pain Time Seen by Provider: 01/19/18 22:30 Source: patient Limitations: no limitations - History of Present Illness Initial Comments: This patient is a 32-year-old woman presenting to be evaluated for abdominal pain. Patient states she has been having these pains intermittently for some time. This episode began 6 days ago. She indicates the right lower quadrant. She states that it feels like something is stuck in there. She states that the pains get worse if she lies prone. She does not have pain if she lies supine. Patient states that she had seen Dr. Kong, who performed her hysterectomy [address] Kong had written for her to have an outpatient CAT scan. MD Complaint: abdominal pain Onset/Timin -: days(s) Location: RLQ Radiation: none Migration to: no migration Severity: moderate Quality: aching Consistency: intermittent Improves With: nothing Worsens With: other (lying prone) Associated Symptoms: denies other symptoms - Related Data Home Medications Medication Instructions Recorded Confirmed ALPRAZolam [Xanax] 0.125 - 0.25 mg PO DAILY PRN 09/26/16 01/19/18 Albuterol Inhaler [Ventolin Hfa 1 - 2 puff INHALATION RT-QID PRN 09/26/16 Inhaler] Ipratropium-Albuterol Nebulize 3 ml INHALATION RT-Q6H PRN 11/14/17 01/19/18 [Duoneb 0.5 mg-3 mg/3 ml Soln] Fluticasone Nasal North [Flonase 2 spr EA NOSTRIL HS 01/19/18 01/19/18 Nasal North] Previous Rx's Medication Instructions Recorded Dicyclomine [Bentyl] 20 mg PO QID #15 tablet 01/20/18 Allergies Allergy/AdvReac Type Severity Reaction Status Date / Time amoxicillin trihydrate Allergy Rash/Hives Verified 01/19/18 22:38 [From Augmentin] cefaclor [From Ceclor] Allergy Rash/Hives Verified 01/19/18 22:38 latex Allergy Rash/Hives Verified 01/19/18 22:38 nitrofurantoin Allergy Rash/Hives Verified 01/19/18 22:38 [From Macrobid] nitrofurantoin Allergy Rash/Hives Verified 01/19/18 22:38 macrocrystalline [From Macrobid] potassium clavulanate Allergy Rash/Hives Verified 01/19/18 22:38 [From Augmentin] Sulfa (Sulfonamide Allergy Rash/Hives Verified 01/19/18 22:38 Antibiotics) Review of Systems ROS Statement: Those systems with pertinent positive or pertinent negative responses have been documented in the HPI. ROS Other: All systems not noted in ROS Statement are negative. Constitutional: Denies: fever Respiratory: Denies: cough, dyspnea Cardiovascular: Denies: chest pain, palpitations Gastrointestinal: Reports: as per HPI, abdominal pain. Denies: nausea, vomiting , diarrhea, constipation, melena, hematochezia Genitourinary: Denies: dysuria, frequency, hematuria Musculoskeletal: Denies: back pain Skin: Denies: rash Neurological: Denies: headache Past Medical History Past Medical History: Asthma, GERD/Reflux Additional Past Medical History / Comment(s): Endometriosis, iron deficiency anemia, frequent UTIs History of Any Multi-Drug Resistant Organisms: None Reported Past Surgical History: Section, Cholecystectomy, Heart Catheterization , Hysterectomy, Tubal Ligation, Uterine Ablation Additional Past Surgical History / Comment(s): LAPAROSCOPY X2, EGD, LEEP procedure, wisdom teeth 2009 Past Anesthesia/Blood Transfusion Reactions: Motion Sickness, Postoperative Nausea & Vomiting (PONV) Past Psychological History: Anxiety Smoking Status: Never smoker Past Alcohol Use History: None Reported Past Drug Use History: None Reported - Past Family History Mother Family Medical History: Hypertension General Exam Limitations: no limitations General appearance: alert, in no apparent distress Head exam: Present: atraumatic, normocephalic Eye exam: Present: normal appearance. Absent: scleral icterus, conjunctival injection ENT exam: Present: normal oropharynx Respiratory exam: Present: normal lung sounds bilaterally. Absent: respiratory distress, wheezes, rales, rhonchi, stridor Cardiovascular Exam: Present: regular rate, normal rhythm, normal heart sounds. Absent: systolic murmur, diastolic murmur, rubs, gallop GI/Abdominal exam: Present: soft, normal bowel sounds. Absent: distended, tenderness, guarding, rebound, rigid, mass, pulsatile mass Extremities exam: Present: normal inspection, normal capillary refill. Absent: pedal edema, calf tenderness Back exam: Present: normal inspection. Absent: CVA tenderness (R), CVA tenderness (L) Neurological exam: Present: alert Skin exam: Present: warm, dry, intact, normal color. Absent: rash Course Vital Signs 01/19/18 21:33 Temperature 98.8 F Pulse Rate 80 Respiratory 18 Rate Blood Pressure 120/68 O2 Sat by Pulse 100 Oximetry Medical Decision Making - Medical Decision Making Patient's feeling better following Bentyl. Abdominal exam remains benign. Lab workup is unremarkable. Discussed the findings with the patient and will follow -up for further evaluation of abdominal pain. Discussed return parameters. - Lab Data Result diagrams: 01/19/18 23:03 01/19/18 23:03 Lab Results 01/19/18 01/19/18 01/19/18 Range/Units 23:03 23:03 23:03 WBC 4.3 (3.8-10.6) k/uL RBC 4.54 (3.80-5.40) m/uL Hgb 14.0 (11.4-16.0) gm/dL Hct 41.1 (34.0-46.0) % MCV 90.5 (80.0-100.0) fL MCH 30.7 (25.0-35.0) pg MCHC 34.0 (31.0-37.0) g/dL RDW 12.2 (11.5-15.5) % Plt Count 175 (150-450) k/uL Neutrophils % 53 % Lymphocytes % 37 % Monocytes % 6 % Eosinophils % 2 % Basophils % 0 % Neutrophils # 2.3 (1.3-7.7) k/uL Lymphocytes # 1.6 (1.0-4.8) k/uL Monocytes # 0.3 (0-1.0) k/uL Eosinophils # 0.1 (0-0.7) k/uL Basophils # 0.0 (0-0.2) k/uL Sodium 140 (137-145) mmol/L Potassium 4.1 (3.5-5.1) mmol/L Chloride 106 (98-107) mmol/L Carbon Dioxide 26 (22-30) mmol/L Anion Gap 8 mmol/L BUN 14 (7-17) mg/dL Creatinine 0.70 (0.52-1.04) mg/dL Est GFR (CKD-EPI)AfAm >90 (>60 ml/min/1.73 sqM) Est GFR (CKD-EPI)NonAf >90 (>60 ml/min/1.73 sqM) Glucose 93 (74-99) mg/dL Calcium 9.5 (8.4-10.2) mg/dL Total Bilirubin 0.6 (0.2-1.3) mg/dL AST 17 (14-36) U/L ALT 23 (9-52) U/L Alkaline Phosphatase 57 (38-126) U/L Total Protein 7.4 (6.3-8.2) g/dL Albumin 4.6 (3.5-5.0) g/dL Amylase 66 (30-110) U/L Lipase 111 (23-300) U/L Urine Color Yellow Urine Appearance Clear (Clear) Urine pH 7.0 (5.0-8.0) Ur Specific [place] 1.014 (1.001-1.035) Urine Protein Negative (Negative) Urine Glucose (UA) Negative (Negative) Urine Ketones Negative (Negative) Urine Blood Negative (Negative) Urine Nitrite Negative (Negative) Urine Bilirubin Negative (Negative) Urine Urobilinogen <2.0 (<2.0) mg/dL Ur Leukocyte Esterase Negative (Negative) Disposition Clinical Impression: Abdominal pain Disposition: HOME SELF-CARE Condition: Good Instructions: Abdominal Pain (ED) Prescriptions: Dicyclomine [Bentyl] 20 mg PO QID #15 tablet Is patient prescribed a controlled substance at d/c from ED?: No Referrals: Kathy Marcano MD [Primary Care Provider] - 1-2 days Maged Laughlin MD [Medical Doctor] - 1-2 days
[2018-01-20 00:29] VITALS: BP 95/62; PULSE 68; TEMP 98.3
== END 2018-01-20 00:28 | disposition home or self-care (01) ==
LOC: EC 21:13
DX: R10.31 Right lower quadrant pain (principal); J45.909 Unspecified asthma, uncomplicated; Z87.440 Personal history of urinary (tract) infections; Z87.42 Personal history of other diseases of the female genital tract; Z90.49 Acquired absence of other specified parts of digestive tract; Z95.818 Presence of other cardiac implants and grafts; Z90.710 Acquired absence of both cervix and uterus; Z98.51 Tubal ligation status; Z98.890 Other specified postprocedural states; Z79.51 Long term (current) use of inhaled steroids; Z88.0 Allergy status to penicillin; Z88.1 Allergy status to other antibiotic agents; Z91.040 Latex allergy status; Z88.2 Allergy status to sulfonamides
CPT/HCPCS: 36415; 80053; 82150; 83690; 85025; 81003; 74177; 99284; Q9967

== ENCOUNTER 2018-03-30 05:43 | Emergency (ER) | payer MEDICAID, OTHER ==
--- NOTE | 2018-03-30 06:05 | ED ---
Nausea/Vomiting/Diarrhea HPI - General Chief complaint: Nausea/Vomiting/Diarrhea Stated complaint: vomiting Time Seen by Provider: 03/30/18 06:04 Source: patient Mode of arrival: ambulatory Limitations: no limitations - History of Present Illness Initial comments: Zhanna is a healthy 33-year-old female with a history of irritable bowel who presents to the emergency department this morning for evaluation of sudden onset nausea and vomiting. Patient reports she was in her usual state of health yesterday, she does admit to eating fast food which is very atypical for her. She reports she is comfortable and she went to sleep however she woke approximately 4 AM with nausea and has had multiple episodes of nonbloody nonbilious emesis. Patient reports that her vomiting subsided approximately 20 minutes prior to evaluation however she has continued heaving and nausea. Patient reports she has not had any diarrhea though she does feel that her abdomen is beginning to cramp and she suspects she'll be having diarrhea shortly. - Related Data Home Medications Medication Instructions Recorded Confirmed ALPRAZolam [Xanax] 0.125 - 0.25 mg PO DAILY PRN 09/26/16 03/30/18 Albuterol Inhaler [Ventolin Hfa 1 - 2 puff INHALATION RT-QID PRN 09/26/16 Inhaler] Ipratropium-Albuterol Nebulize 3 ml INHALATION RT-Q6H PRN 11/14/17 03/30/18 [Duoneb 0.5 mg-3 mg/3 ml Soln] Ibuprofen [Motrin Ib] 800 mg PO Q6H PRN 03/30/18 03/30/18 Venlafaxine HCl [Effexor] 37.5 mg PO DAILY 03/30/18 03/30/18 Previous Rx's Medication Instructions Recorded Ondansetron [Zofran ODT] 4 mg PO Q8HR #12 tab 03/30/18 Allergies Allergy/AdvReac Type Severity Reaction Status Date / Time amoxicillin trihydrate Allergy Rash/Hives Verified 03/30/18 08:01 [From Augmentin] cefaclor [From Ceclor] Allergy Rash/Hives Verified 03/30/18 08:01 latex Allergy Rash/Hives Verified 03/30/18 08:01 nitrofurantoin Allergy Rash/Hives Verified 03/30/18 08:01 [From Macrobid] nitrofurantoin Allergy Rash/Hives Verified 03/30/18 08:01 macrocrystalline [From Macrobid] potassium clavulanate Allergy Rash/Hives Verified 03/30/18 08:01 [From Augmentin] Sulfa (Sulfonamide Allergy Rash/Hives Verified 03/30/18 08:01 Antibiotics) Review of Systems ROS Statement: Those systems with pertinent positive or pertinent negative responses have been documented in the HPI. ROS Other: All systems not noted in ROS Statement are negative. Past Medical History Past Medical History: Asthma, GERD/Reflux Additional Past Medical History / Comment(s): Endometriosis, iron deficiency anemia, frequent UTIs History of Any Multi-Drug Resistant Organisms: None Reported Past Surgical History: Section, Cholecystectomy, Heart Catheterization , Hysterectomy, Tubal Ligation, Uterine Ablation Additional Past Surgical History / Comment(s): LAPAROSCOPY X2, EGD, LEEP procedure, wisdom teeth 2009 Past Anesthesia/Blood Transfusion Reactions: Motion Sickness, Postoperative Nausea & Vomiting (PONV) Past Psychological History: Anxiety Smoking Status: Never smoker Past Alcohol Use History: Rare Past Drug Use History: None Reported - Past Family History Mother Family Medical History: Hypertension General Exam - General Exam Comments Initial Comments: Physical Exam GENERAL: Dehydrated appearing, appears nauseated and uncomfortable HENT: Normocephalic, Atraumatic. EYES: PERRL, EOMI PULMONARY: Unlabored respirations. No audible rales rhonchi or wheezing was noted. CARDIOVASCULAR: There is a regular rate and rhythm without any murmurs gallops or rubs. ABDOMEN: Soft and nontender with normal bowel sounds. SKIN: Skin is clear with no lesions or rashes and otherwise unremarkable. : Deferred NEUROLOGIC: Patient is alert and oriented x3. Moving all extremities spontaneously MUSCULOSKELETAL: Normal extremities with adequate strength and full range of motion. No lower extremity swelling or edema. No calf tenderness. PSYCHIATRIC: Normal psychiatric evaluation. Limitations: no limitations Limitations: no limitations Course Vital Signs 03/30/18 03/30/18 03/30/18 05:46 06:45 09:09 Temperature 98.0 F 98.1 F Pulse Rate 87 72 Respiratory 20 16 18 Rate Blood Pressure 119/77 110/70 O2 Sat by Pulse 99 99 Oximetry Medical Decision Making - Medical Decision Making Was seen and evaluated history is obtained from the patient IV fluids, Zofran, Pepcid and labs were ordered Labs were unremarkable, patient was reevaluated after meds and IV fluids, reported resolution of her nausea and was feeling much better. Patient was able tolerate by mouth intake. Patient is agreeable for plan for discharge home with ODT Zofran. Return parameters were discussed all questions pertaining to care were answered patient was discharged home in stable condition - Lab Data Result diagrams: 03/30/18 06:22 03/30/18 06:22 Lab Results 03/30/18 03/30/18 03/30/18 Range/Units 06:22 06:22 07:16 WBC 3.1 L (3.8-10.6) k/uL RBC 4.72 (3.80-5.40) m/uL Hgb 13.6 (11.4-16.0) gm/dL Hct 42.0 (34.0-46.0) % MCV 89.1 (80.0-100.0) fL MCH 28.8 (25.0-35.0) pg MCHC 32.4 (31.0-37.0) g/dL RDW 12.6 (11.5-15.5) % Plt Count 190 (150-450) k/uL Neutrophils % 61 % Lymphocytes % 27 % Monocytes % 6 % Eosinophils % 2 % Basophils % 1 % Neutrophils # 1.9 (1.3-7.7) k/uL Lymphocytes # 0.8 L (1.0-4.8) k/uL Monocytes # 0.2 (0-1.0) k/uL Eosinophils # 0.1 (0-0.7) k/uL Basophils # 0.0 (0-0.2) k/uL Sodium 141 (137-145) mmol/L Potassium 4.6 (3.5-5.1) mmol/L Chloride 106 (98-107) mmol/L Carbon Dioxide 28 (22-30) mmol/L Anion Gap 7 mmol/L BUN 12 (7-17) mg/dL Creatinine 0.71 (0.52-1.04) mg/dL Est GFR (CKD-EPI)AfAm >90 (>60 ml/min/1.73 sqM) Est GFR (CKD-EPI)NonAf >90 (>60 ml/min/1.73 sqM) Glucose 109 H (74-99) mg/dL Calcium 9.5 (8.4-10.2) mg/dL Total Bilirubin 1.4 H (0.2-1.3) mg/dL AST 17 (14-36) U/L ALT 23 (9-52) U/L Alkaline Phosphatase 40 (38-126) U/L Total Protein 7.4 (6.3-8.2) g/dL Albumin 4.4 (3.5-5.0) g/dL Amylase 76 (30-110) U/L Lipase 144 (23-300) U/L Urine Color Yellow Urine Appearance Cloudy H (Clear) Urine pH 6.5 (5.0-8.0) Ur Specific [place] 1.016 (1.001-1.035) Urine Protein Negative (Negative) Urine Glucose (UA) Negative (Negative) Urine Ketones Negative (Negative) Urine Blood Negative (Negative) Urine Nitrite Negative (Negative) Urine Bilirubin Negative (Negative) Urine Urobilinogen <2.0 (<2.0) mg/dL Ur Leukocyte Esterase Negative (Negative) Urine RBC 2 (0-5) /hpf Urine WBC 1 (0-5) /hpf Ur Squamous Epith Cells 10 H (0-4) /hpf Urine Bacteria Occasional H (None) /hpf Urine Mucus Rare H (None) /hpf Urine HCG, Qual (Not Detectd) 03/30/18 Range/Units 07:16 WBC (3.8-10.6) k/uL RBC (3.80-5.40) m/uL Hgb (11.4-16.0) gm/dL Hct (34.0-46.0) % MCV (80.0-100.0) fL MCH (25.0-35.0) pg MCHC (31.0-37.0) g/dL RDW (11.5-15.5) % Plt Count (150-450) k/uL Neutrophils % % Lymphocytes % % Monocytes % % Eosinophils % % Basophils % % Neutrophils # (1.3-7.7) k/uL Lymphocytes # (1.0-4.8) k/uL Monocytes # (0-1.0) k/uL Eosinophils # (0-0.7) k/uL Basophils # (0-0.2) k/uL Sodium (137-145) mmol/L Potassium (3.5-5.1) mmol/L Chloride (98-107) mmol/L Carbon Dioxide (22-30) mmol/L Anion Gap mmol/L BUN (7-17) mg/dL Creatinine (0.52-1.04) mg/dL Est GFR (CKD-EPI)AfAm (>60 ml/min/1.73 sqM) Est GFR (CKD-EPI)NonAf (>60 ml/min/1.73 sqM) Glucose (74-99) mg/dL Calcium (8.4-10.2) mg/dL Total Bilirubin (0.2-1.3) mg/dL AST (14-36) U/L ALT (9-52) U/L Alkaline Phosphatase (38-126) U/L Total Protein (6.3-8.2) g/dL Albumin (3.5-5.0) g/dL Amylase (30-110) U/L Lipase (23-300) U/L Urine Color Urine Appearance (Clear) Urine pH (5.0-8.0) Ur Specific [place] (1.001-1.035) Urine Protein (Negative) Urine Glucose (UA) (Negative) Urine Ketones (Negative) Urine Blood (Negative) Urine Nitrite (Negative) Urine Bilirubin (Negative) Urine Urobilinogen (<2.0) mg/dL Ur Leukocyte Esterase (Negative) Urine RBC (0-5) /hpf Urine WBC (0-5) /hpf Ur Squamous Epith Cells (0-4) /hpf Urine Bacteria (None) /hpf Urine Mucus (None) /hpf Urine HCG, Qual Not Detected (Not Detectd) Disposition Clinical Impression: Nausea & vomiting Disposition: HOME SELF-CARE Condition: Good Instructions: Acute Nausea and Vomiting (ED) Prescriptions: Ondansetron [Zofran ODT] 4 mg PO Q8HR #12 tab Is patient prescribed a controlled substance at d/c from ED?: No Referrals: Kathy Marcano MD [Primary Care Provider] - 1-2 days
[2018-03-30] MEDS ORDERED: SODIUM CHLORIDE 0.9% 1,000 ML IV STA (06:29)
[2018-03-30] MEDS ORDERED: ONDANSETRON 4 MG/2 ML VIAL IVP STA (06:29)
[2018-03-30] MEDS ORDERED: FAMOTIDINE 20 MG/2 ML VIAL IV STA (06:29)
[2018-03-30 06:52] LABS: Basophils % (A) 1 %; Eosinophils # (A) 0.1 k/uL (0-0.7); Eosinophils % (A) 2 %; HGB 13.6 gm/dL (11.4-16.0); Lymphocytes # (A) 0.8 k/uL (1.0-4.8); Lymphocytes % (A) 27 %; MCH 28.8 pg (25.0-35.0); MCHC 32.4 g/dL (31.0-37.0); MCV 89.1 fL (80.0-100.0); Mean Platelet Volume 8.1; Monocytes # (A) 0.2 k/uL (0-1.0); Monocytes % (A) 6 %; Neutrophils # (A) 1.9 k/uL (1.3-7.7); Neutrophils % (A) 61 %; Platelet Count 190 k/uL (150-450); RBC 4.72 m/uL (3.80-5.40); RDW 12.6 % (11.5-15.5); WBC 3.1 k/uL (3.8-10.6)
[2018-03-30 07:09] LABS: ALT 23 U/L (9-52); AST 17 U/L (14-36); Albumin 4.4 g/dL (3.5-5.0); Alkaline Phosphatase 40 U/L (38-126); Amylase 76 U/L (30-110); Anion Gap 7 mmol/L; Blood Urea Nitrogen 12 mg/dL (7-17); Calcium 9.5 mg/dL (8.4-10.2); Carbon Dioxide 28 mmol/L (22-30); Chloride 106 mmol/L (98-107); Glucose 109 mg/dL (74-99); Lipase 144 U/L (23-300); Potassium 4.6 mmol/L (3.5-5.1); Sodium 141 mmol/L (137-145); Total Bilirubin 1.4 mg/dL (0.2-1.3); Total Protein 7.4 g/dL (6.3-8.2)
[2018-03-30 07:32] LABS: Appearance,Urine Cloudy (Clear); Bacteria,Urine Occasional /hpf; Bilirubin,Urine Negative (Negative); Blood,Urine Negative (Negative); Color,Urine Yellow; Glucose,Urine (UA) Negative (Negative); Ketones,Urine Negative (Negative); Leukocyte Esterase,Urine Negative (Negative); Mucus,Urine Rare /hpf; Nitrite,Urine Negative (Negative); PH, Urine 6.5 (5.0-8.0); Protein,Urine Negative (Negative); RBC,Urine 2 /hpf (0-5); Specific Gravity,Urine 1.016 (1.001-1.035); Squamous Epithelial Cell,Urine 10 /hpf (0-4); Urobilinogen,Urine <2.0 mg/dL (<2.0); WBC,Urine 1 /hpf (0-5)
[2018-03-30] MEDS ORDERED: ONDANSETRON 4 MG ODT STARTER PACK 2 TAB BTL PO STA (08:55)
[2018-03-30 09:10] VITALS: BP 110/70; PULSE 72; RESP 18; TEMP 98.1
== END 2018-03-30 09:09 | disposition home or self-care (01) ==
LOC: EC 05:43
DX: R11.2 Nausea with vomiting, unspecified (principal); J45.909 Unspecified asthma, uncomplicated; F41.9 Anxiety disorder, unspecified; Z88.0 Allergy status to penicillin; Z88.1 Allergy status to other antibiotic agents; Z88.2 Allergy status to sulfonamides; Z79.899 Other long term (current) drug therapy; Z90.49 Acquired absence of other specified parts of digestive tract
CPT/HCPCS: 36415; 80053; 82150; 83690; 85025; 81001; 81025; 99284; 96374; 96375; 96361; J2405; S0119

== ENCOUNTER 2018-05-22 06:04 | Observation (INO) | payer MEDICAID, OTHER ==
[2018-05-22] MEDS ORDERED: SODIUM CHLORIDE 0.9% 1,000 ML IV STA (06:44)
--- NOTE | 2018-05-22 06:49 | ED ---
General Adult HPI - General Source: patient Mode of arrival: ambulatory Limitations: no limitations - History of Present Illness Onset/Timin -: hour(s) Consistency: intermittent Improves with: rest Worsens with: movement Associated Symptoms: shortness of breath Treatments Prior to Arrival: none <Milo Holliday - Last Filed: 05/22/18 06:45> <Derrick Boyle Alonso - Last Filed: 05/22/18 09:59> - General Chief complaint: Chest Pain Stated complaint: chest pain,SOB Time Seen by Provider: 05/22/18 06:34 - History of Present Illness Initial comments: This patient is a 33-year-old woman who presents to be evaluated for a number of symptoms that started last night. Patient states that she has been feeling lightheaded at times, particularly with walking. She has been feeling like her heart is racing. She gets a little bit winded if she walks up stairs. Patient states she has previously had episodes of tachycardia and even had a heart cath previously and was told that the tachycardia is not serious. She had been advised to raise herself intake due to hypotension previously. Patient states that her symptoms have just been more prominent than usual. (Milo Holliday) - Related Data Home Medications Medication Instructions Recorded Confirmed Albuterol Inhaler [Ventolin Hfa 1 - 2 puff INHALATION RT-QID PRN 09/26/16 Inhaler] Ipratropium-Albuterol Nebulize 3 ml INHALATION RT-Q6H PRN 11/14/17 05/22/18 [Duoneb 0.5 mg-3 mg/3 ml Soln] Cholecalciferol (Vitamin D3) 2,000 unit PO HS 05/22/18 05/22/18 [Vitamin D3] Venlafaxine HCl ER [Effexor XR] 37.5 mg PO HS 05/22/18 05/22/18 Allergies Allergy/AdvReac Type Severity Reaction Status Date / Time amoxicillin trihydrate Allergy Rash/Hives Verified 05/22/18 06:59 [From Augmentin] cefaclor [From Ceclor] Allergy Rash/Hives Verified 05/22/18 06:59 latex Allergy Rash/Hives Verified 05/22/18 06:59 nitrofurantoin Allergy Rash/Hives Verified 05/22/18 06:59 [From Macrobid] nitrofurantoin Allergy Rash/Hives Verified 05/22/18 06:59 macrocrystalline [From Macrobid] potassium clavulanate Allergy Rash/Hives Verified 05/22/18 06:59 [From Augmentin] Sulfa (Sulfonamide Allergy Rash/Hives Verified 05/22/18 06:59 Antibiotics) Review of Systems ROS Other: All systems not noted in ROS Statement are negative. Constitutional: Denies: fever, chills Respiratory: Denies: cough, dyspnea Cardiovascular: Reports: palpitations, dyspnea on exertion. Denies: chest pain , orthopnea, edema, syncope Gastrointestinal: Denies: abdominal pain, nausea, vomiting, diarrhea Genitourinary: Denies: dysuria, hematuria Musculoskeletal: Denies: back pain Skin: Denies: rash Neurological: Denies: headache, weakness, numbness, paresthesias, confusion Hematological/Lymphatic: Denies: easy bleeding <Milo Holliday - Last Filed: 05/22/18 06:45> ROS Other: All systems not noted in ROS Statement are negative. <Derrick Boyle - Last Filed: 05/22/18 09:59> ROS Statement: Those systems with pertinent positive or pertinent negative responses have been documented in the HPI. Past Medical History Past Medical History: Asthma, GERD/Reflux Additional Past Medical History / Comment(s): Endometriosis, iron deficiency anemia, frequent UTIs History of Any Multi-Drug Resistant Organisms: None Reported Past Surgical History: Section, Cholecystectomy, Heart Catheterization , Hysterectomy, Tubal Ligation, Uterine Ablation Additional Past Surgical History / Comment(s): LAPAROSCOPY X2, EGD, LEEP procedure, wisdom teeth 2009 Past Anesthesia/Blood Transfusion Reactions: Motion Sickness, Postoperative Nausea & Vomiting (PONV) Past Psychological History: Anxiety Smoking Status: Never smoker Past Alcohol Use History: Rare Past Drug Use History: None Reported - Past Family History Mother Family Medical History: Hypertension <Milo Holliday - Last Filed: 05/22/18 06:45> General Exam Limitations: no limitations General appearance: alert, in no apparent distress Head exam: Present: atraumatic, normocephalic Eye exam: Present: normal appearance. Absent: scleral icterus, conjunctival injection, nystagmus ENT exam: Present: normal oropharynx Neck exam: Present: normal inspection Respiratory exam: Present: normal lung sounds bilaterally. Absent: respiratory distress, wheezes, rales, rhonchi, stridor Cardiovascular Exam: Present: regular rate, normal rhythm, normal heart sounds. Absent: systolic murmur, diastolic murmur, rubs, gallop GI/Abdominal exam: Present: soft. Absent: distended, tenderness, guarding, rebound, rigid, mass Extremities exam: Present: normal inspection, normal capillary refill. Absent: pedal edema, calf tenderness Back exam: Present: normal inspection. Absent: CVA tenderness (R), CVA tenderness (L) Neurological exam: Present: alert, oriented X3, CN II-XII intact Skin exam: Present: warm, dry, intact, normal color. Absent: rash <Milo Holliday - Last Filed: 05/22/18 06:45> Vital Signs 05/22/18 05/22/18 05/22/18 06:07 06:27 06:30 Temperature 98.5 F Pulse Rate 111 H 91 94 Pulse Rate [ Bilateral Radial] Respiratory 20 21 19 Rate Blood Pressure 108/76 107/79 O2 Sat by Pulse 98 99 100 Oximetry 05/22/18 05/22/18 05/22/18 07:00 07:01 07:30 Temperature Pulse Rate 98 67 Pulse Rate [ 101 H Bilateral Radial] Respiratory 15 16 Rate Blood Pressure 112/77 109/78 O2 Sat by Pulse 100 100 Oximetry 05/22/18 08:00 Temperature Pulse Rate Pulse Rate [ Bilateral Radial] Respiratory Rate Blood Pressure 114/76 O2 Sat by Pulse Oximetry EKG Findings - EKG Results: EKG: interpreted by ERMD, sinus rhythm (Rate approximately 98 bpm), normal axis , normal QRS, normal ST/T, no acute changes <Milo Holliday - Last Filed: 05/22/18 06:45> Medical Decision Making <Milo Holliday - Last Filed: 05/22/18 06:45> - Lab Data Result diagrams: 05/22/18 06:55 05/22/18 06:55 <Derrick Boyle - Last Filed: 05/22/18 09:59> - Medical Decision Making 33-year-old with chest pain, near-syncope, palpitations. Workup in the emergency department reveals white blood cell count 3.2, normal stable hemoglobin, normal electrolytes, troponin negative, EKG shows some inferior changes compared with previous EKG. Chest x-ray negative for acute cardiac primary disease, CT angiography negative for pulmonary embolism or acute process. Patient will be kept on telemetry, admitted for echo, cardiology consultation. Case discussed with admitting physician, will accept (Derrick Boyle) - Lab Data Lab Results 05/22/18 05/22/18 05/22/18 Range/Units 06:55 06:55 06:55 WBC 3.2 L (3.8-10.6) k/uL RBC 4.45 (3.80-5.40) m/uL Hgb 13.7 (11.4-16.0) gm/dL Hct 39.8 (34.0-46.0) % MCV 89.6 (80.0-100.0) fL MCH 30.9 (25.0-35.0) pg MCHC 34.5 (31.0-37.0) g/dL RDW 12.3 (11.5-15.5) % Plt Count 151 (150-450) k/uL Neutrophils % 64 % Lymphocytes % 26 % Monocytes % 6 % Eosinophils % 1 % Basophils % 1 % Neutrophils # 2.0 (1.3-7.7) k/uL Lymphocytes # 0.8 L (1.0-4.8) k/uL Monocytes # 0.2 (0-1.0) k/uL Eosinophils # 0.0 (0-0.7) k/uL Basophils # 0.0 (0-0.2) k/uL PT (9.0-12.0) sec INR (<1.2) APTT (22.0-30.0) sec D-Dimer (<0.60) mg/L FEU Sodium 142 (137-145) mmol/L Potassium 4.2 (3.5-5.1) mmol/L Chloride 108 H (98-107) mmol/L Carbon Dioxide 25 (22-30) mmol/L Anion Gap 9 mmol/L BUN 12 (7-17) mg/dL Creatinine 0.74 (0.52-1.04) mg/dL Est GFR (CKD-EPI)AfAm >90 (>60 ml/min/1.73 sqM) Est GFR (CKD-EPI)NonAf >90 (>60 ml/min/1.73 sqM) Glucose 116 H (74-99) mg/dL Calcium 9.5 (8.4-10.2) mg/dL Magnesium 1.8 (1.6-2.3) mg/dL Total Bilirubin 0.9 (0.2-1.3) mg/dL AST 16 (14-36) U/L ALT 24 (9-52) U/L Alkaline Phosphatase 41 (38-126) U/L Total Creatine Kinase 35 (30-135) U/L CK-MB (CK-2) 0.2 (0.0-2.4) ng/mL CK-MB (CK-2) Rel Index 0.6 Troponin I <0.012 (0.000-0.034) ng/mL Total Protein 7.3 (6.3-8.2) g/dL Albumin 4.5 (3.5-5.0) g/dL 05/22/18 Range/Units 06:55 WBC (3.8-10.6) k/uL RBC (3.80-5.40) m/uL Hgb (11.4-16.0) gm/dL Hct (34.0-46.0) % MCV (80.0-100.0) fL MCH (25.0-35.0) pg MCHC (31.0-37.0) g/dL RDW (11.5-15.5) % Plt Count (150-450) k/uL Neutrophils % % Lymphocytes % % Monocytes % % Eosinophils % % Basophils % % Neutrophils # (1.3-7.7) k/uL Lymphocytes # (1.0-4.8) k/uL Monocytes # (0-1.0) k/uL Eosinophils # (0-0.7) k/uL Basophils # (0-0.2) k/uL PT 10.6 (9.0-12.0) sec INR 1.0 (<1.2) APTT 25.5 (22.0-30.0) sec D-Dimer 0.24 (<0.60) mg/L FEU Sodium (137-145) mmol/L Potassium (3.5-5.1) mmol/L Chloride (98-107) mmol/L Carbon Dioxide (22-30) mmol/L Anion Gap mmol/L BUN (7-17) mg/dL Creatinine (0.52-1.04) mg/dL Est GFR (CKD-EPI)AfAm (>60 ml/min/1.73 sqM) Est GFR (CKD-EPI)NonAf (>60 ml/min/1.73 sqM) Glucose (74-99) mg/dL Calcium (8.4-10.2) mg/dL Magnesium (1.6-2.3) mg/dL Total Bilirubin (0.2-1.3) mg/dL AST (14-36) U/L ALT (9-52) U/L Alkaline Phosphatase (38-126) U/L Total Creatine Kinase (30-135) U/L CK-MB (CK-2) (0.0-2.4) ng/mL CK-MB (CK-2) Rel Index Troponin I (0.000-0.034) ng/mL Total Protein (6.3-8.2) g/dL Albumin (3.5-5.0) g/dL Disposition <Milo Holliday - Last Filed: 05/22/18 06:45> Is patient prescribed a controlled substance at d/c from ED?: No Decision to Admit Reason: Admit from EC Decision Date: 05/22/18 Decision Time: 09:59 <Derrick Boyle - Last Filed: 05/22/18 09:59> Clinical Impression: Chest pain, Near syncope Disposition: ADMITTED IP TO THIS HOSP Condition: Stable Referrals: Kathy Marcano MD [Primary Care Provider] - 1-2 days
[2018-05-22 07:15] LABS: Basophils % (A) 1 %; Eosinophils % (A) 1 %; HCT 39.8 % (34.0-46.0); HGB 13.7 gm/dL (11.4-16.0); Lymphocytes # (A) 0.8 k/uL (1.0-4.8); Lymphocytes % (A) 26 %; MCH 30.9 pg (25.0-35.0); MCHC 34.5 g/dL (31.0-37.0); MCV 89.6 fL (80.0-100.0); Mean Platelet Volume 8.9; Monocytes # (A) 0.2 k/uL (0-1.0); Monocytes % (A) 6 %; Neutrophils % (A) 64 %; Platelet Count 151 k/uL (150-450); RBC 4.45 m/uL (3.80-5.40); RDW 12.3 % (11.5-15.5); WBC 3.2 k/uL (3.8-10.6)
[2018-05-22 07:28] LABS: D-Dimer 0.24 mg/L FEU (<0.60); Partial Thromboplastin Time 25.5 sec (22.0-30.0); Prothrombin Time 10.6 sec (9.0-12.0)
[2018-05-22 07:42] LABS: Creatine Kinase 35 U/L (30-135)
[2018-05-22 07:43] LABS: ALT 24 U/L (9-52); AST 16 U/L (14-36); Albumin 4.5 g/dL (3.5-5.0); Alkaline Phosphatase 41 U/L (38-126); Anion Gap 9 mmol/L; Blood Urea Nitrogen 12 mg/dL (7-17); Calcium 9.5 mg/dL (8.4-10.2); Carbon Dioxide 25 mmol/L (22-30); Chloride 108 mmol/L (98-107); Glucose 116 mg/dL (74-99); Magnesium 1.8 mg/dL (1.6-2.3); Potassium 4.2 mmol/L (3.5-5.1); Sodium 142 mmol/L (137-145); Total Bilirubin 0.9 mg/dL (0.2-1.3); Total Protein 7.3 g/dL (6.3-8.2)
[2018-05-22 07:54] LABS: Creatine Kinase MB 0.2 ng/mL (0.0-2.4); Troponin I <0.012 ng/mL (0.000-0.034)
--- NOTE | 2018-05-22 08:09 | XR ---
EXAMINATION TYPE: XR chest 2V DATE OF EXAM: 05/22/2018 COMPARISON: Prior chest x-ray 08/22/2017 HISTORY: Chest pain, tachycardia TECHNIQUE: Frontal and lateral views of the chest are obtained. FINDINGS: There is no focal air space opacity, pleural effusion, or pneumothorax seen. The cardiac silhouette size is within normal limits. The osseous structures are intact. There are cardiac leads . Surgical clips present in the right upper quadrant. IMPRESSION: No acute cardiopulmonary process.
--- NOTE | 2018-05-22 09:18 | CT ---
EXAMINATION TYPE: CT angio chest DATE OF EXAM: 05/22/2018 COMPARISON: None HISTORY: Chest pain CT DLP: 194.5 mGycm CONTRAST: CT chest with contrast and 3D reconstruction with MIP imaging is performed with IV Contrast, patient injected with 75 mL of Isovue 370. Contrast-enhanced CT of the chest was performed through the course of the pulmonary arteries with danitza g and mediastinal window settings submitted. 3D reconstruction with MIP imaging was also performed. PULMONARY ARTERIES: The pulmonary arteries and their major tributaries are patent. I do not see warren dence for sizable filling defect to suggest pulmonary embolic process. LUNGS: The lungs are clear and free of infiltrate. No evidence for atelectasis. No pulmonary nodule or mass is detected. No pleural effusion. MEDIASTINUM: Thoracic aorta is of normal caliber,however, evaluation is limited given timing of the contrast bolus. If there is concern for thoracic aortic pathology consider DONNIE. Correlate clinicall y . The heart is not enlarged. No evidence for mediastinal mass. No mediastinal lymph nodes greater than 1cm. HILAR STRUCTURES: No evidence for mass. No hilar lymph nodes greater than 1 cm. UPPER ABDOMEN: No significant abnormality is seen. IMPRESSION: 1. No evidence for Pulmonary embolism at this time.
[2018-05-22] MEDS ORDERED: ONDANSETRON 4 MG/2 ML VIAL IVP PRN (09:55)
[2018-05-22] MEDS ORDERED: NALOXONE 0.4 MG/ML 1 ML VIAL IV PRN (09:55)
[2018-05-22] MEDS ORDERED: IPRATROPIUM-ALBUTEROL 3 ML NEB INHALATION PRN (10:31)
[2018-05-22] MEDS ORDERED: ACETAMINOPHEN TAB 325 MG TAB PO PRN (11:06)
--- NOTE | 2018-05-22 11:32 | P.HPIM ---
History of Present Illness H&P Date: 05/22/18 Chief Complaint: Chest pain 33-year-old female with PMH of anxiety, endometriosis and asthma presents the ED for chest pain, palpitations and shortness of breath. Patient reports chest pain, that is been ongoing for the past 2 weeks. Pain has been intermittent, occurring over 10 times daily. Pain last for about 1 minute each time. Patient reports the pain to be spastic and sharp in nature. Pain is 8 out of 10 in severity when it occurs. Pain is aggravated with exertion and is associated with some shortness of breath and palpitations. Patient reports that the pain has been unchanged for the past 2 weeks, worsened last night. Patient reports worsening of her chest pain, dizziness and palpitations when bending over to drop blood. 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 Patient reports a coronary angiogram in 2003 which was within normal limits and an echocardiogram 2 years ago. She endorses headache, associated with sinus inflammation. She denies any lower extremity edema, fever, cough, changes in urination or bowel habits. She does report nausea but no vomiting. She does not consume caffeinated beverages. Patient does report a history of anxiety, well-controlled with medications. In the ED, CTA of the chest was negative for PE. Initial troponin was less than 0.012, EKG showing normal sinus rhythm. Patient is admitted for chest pain , rule out acute coronary syndrome. Cardiology is on consult. Review of Systems All systems: negative Past Medical History Past Medical History: Asthma, GERD/Reflux Additional Past Medical History / Comment(s): Tachycardia, endometriosis, iron deficiency anemia, frequent UTIs History of Any Multi-Drug Resistant Organisms: None Reported Past Surgical History: Section, Cholecystectomy, Heart Catheterization , Hysterectomy, Tubal Ligation, Uterine Ablation Additional Past Surgical History / Comment(s): LAPAROSCOPY X2, EGD, LEEP procedure, 3 c-sections, wisdom teeth 2008 Past Anesthesia/Blood Transfusion Reactions: Motion Sickness, Postoperative Nausea & Vomiting (PONV) Smoking Status: Never smoker - Past Family History Mother Family Medical History: CVA/TIA, Hyperlipidemia, Hypertension, Musculoskeletal Disorder, Neurologic Disorder Additional Family Medical History / Comment(s): CVA and multiple sclerosis. Father Family Medical History: CVA/TIA, Hyperlipidemia Additional Family Medical History / Comment(s): CVA Medications and Allergies Home Medications Medication Instructions Recorded Confirmed Type Albuterol Inhaler [Ventolin Hfa 1 - 2 puff INHALATION RT-QID PRN 09/26/16 History Inhaler] Ipratropium-Albuterol Nebulize 3 ml INHALATION RT-Q6H PRN 11/14/17 05/22/18 History [Duoneb 0.5 mg-3 mg/3 ml Soln] Cholecalciferol (Vitamin D3) 2,000 unit PO HS 05/22/18 05/22/18 History [Vitamin D3] Venlafaxine HCl ER [Effexor XR] 37.5 mg PO HS 05/22/18 05/22/18 History Allergies Allergy/AdvReac Type Severity Reaction Status Date / Time amoxicillin trihydrate Allergy Rash/Hives Verified 05/22/18 06:59 [From Augmentin] cefaclor [From Ceclor] Allergy Rash/Hives Verified 05/22/18 06:59 latex Allergy Rash/Hives Verified 05/22/18 06:59 nitrofurantoin Allergy Rash/Hives Verified 05/22/18 06:59 [From Macrobid] nitrofurantoin Allergy Rash/Hives Verified 05/22/18 06:59 macrocrystalline [From Macrobid] potassium clavulanate Allergy Rash/Hives Verified 05/22/18 06:59 [From Augmentin] Sulfa (Sulfonamide Allergy Rash/Hives Verified 05/22/18 06:59 Antibiotics) Physical Exam Vitals: Vital Signs Temp Pulse Pulse Resp BP Pulse Ox 05/22/18 08:00 114/76 05/22/18 07:30 67 16 109/78 100 05/22/18 07:01 101 H 05/22/18 07:00 98 15 112/77 100 05/22/18 06:30 94 19 107/79 100 05/22/18 06:27 91 21 99 05/22/18 06:07 98.5 F 111 H 20 108/76 98 Intake and Output 05/21/18 05/22/18 05/22/18 22:59 06:59 14:59 Other: Weight 52.163 kg General: [non toxic], [no distress], [appears at stated age] Derm: [warm], [dry] Head: [atraumatic], [normocephalic], [symmetric] Eyes: [EOMI], [no lid lag], [anicteric sclera] Mouth: [no lip lesion], [mucus membranes moist] Cardiovascular: [S1S2 reg], [no murmur], [positive posterior tibial pulse bilateral], Lungs: [CTA bilateral], [no rhonchi, no rales] , [no accessory muscle use] Abdominal: [soft], [ nontender to palpation], [no guarding], [no appreciable organomegaly] Ext: [no gross muscle atrophy], [no edema], [no contractures] Neuro: [ CN II-XI grossly intact], [no focal neuro deficits] Psych: [Alert], [oriented], [appropriate affect] Results CBC & Chem 7: 05/22/18 06:55 05/22/18 06:55 Labs: Abnormal Lab Results - Last 24 Hours (Table) 05/22/18 05/22/18 Range/Units 06:55 06:55 WBC 3.2 L (3.8-10.6) k/uL Lymphocytes # 0.8 L (1.0-4.8) k/uL Chloride 108 H (98-107) mmol/L Glucose 116 H (74-99) mg/dL Thrombosis Risk Factor Assmnt - Choose All That Apply Any of the Below Risk Factors Present?: No Other Risk Factors: No Other congenital or acquired thrombophilia - If yes, enter type in comment: No Thrombosis Risk Factor Assessment Level: Very Low Risk Assessment and Plan Assessment: Assessment and Plan 1. Near syncopal episode 2. Asthma 3. Anxiety 4. DVT and GI prophylaxis 1. Orthostatic vs. Cardiac vs. Vasovagal. Troponin < 0.012, EKG showing normal sinus rhythm. CTA Chest rules out PE. CXR negative. Trend 2 Trop/EKG to rule out ACS. Obtain orthostats. Obtain Echocardiogram. Telemetry monitoring. Fall precautions. Follow Cardiology recommendations. 2. Stable. DuoNeb PRN for SOB/wheezing. 3. Continue Effexor 37.5 mg PO QHS. 4. SCD boots only. Patient admitted for near syncopal episode. She sees cardiology in the outpatient setting for tachycardia. Will rule out acute coronary syndrome. Obtain orthostats. Obtain echocardiogram. Follow cardiology recommendations. Possible discharge tomorrow.
--- NOTE | 2018-05-22 11:56 | ECHOF ---
Referral Reason:Chest pain, DIP, syncope MEASUREMENTS -------- HEIGHT: 147.3 cm WEIGHT: 52.2 kg BP: 114/76 RVIDd: 2.2 cm (< 3.3) IVSd: 0.8 cm (0.6 - 1.1) LVIDd: 3.8 cm (3.9 - 5.3) LVPWd: 0.8 cm (0.6 - 1.1) IVSs: 1.4 cm LVIDs: 2.4 cm LVPWs: 1.3 cm LA Diam: 2.5 cm (2.7 - 3.8) Ao Diam: 2.5 cm (2.0 - 3.7) AV Cusp: 2.0 cm (1.5 - 2.6) MV EXCURSION: 15.618 mm (> 18.000) MV EF SLOPE: 99 mm/s (70 - 150) EPSS: 0.4 cm MV E Kenney: 0.93 m/s MV DecT: 222 ms MV A Kenney: 0.55 m/s MV E/A Ratio: 1.70 FINDINGS -------- Sinus rhythm. This was a technically excellent study. The left ventricular size is normal. Left ventricular wall thickness is normal. Overall left vent ricular systolic function is normal with, an EF between 60 - 65 %. The right ventricle is normal in size. The left atrial size is normal. The right atrium is normal in size. The aortic valve is trileaflet and appears structurally normal. The mitral valve is normal. The tricuspid valve appears structurally normal. There is no pulmonic regurgitation present. The aortic root size is normal. Normal inferior vena cava with normal inspiratory collapse consistent with estimated right atrial pre ssure of 5 mmHg. There is no pericardial effusion. CONCLUSIONS -------- 1. Sinus rhythm. 2. This was a technically excellent study. 3. The left ventricular size is normal. 4. Left ventricular wall thickness is normal. 5. Overall left ventricular systolic function is normal with, an EF between 60 - 65 %. 6. The right ventricle is normal in size. 7. The left atrial size is normal. 8. The right atrium is normal in size. 9. The aortic valve is trileaflet and appears structurally normal. 10. The mitral valve is normal. 11. The tricuspid valve appears structurally normal. 12. There is no pulmonic regurgitation present. 13. The aortic root size is normal. 14. Normal inferior vena cava with normal inspiratory collapse consistent with estimated right atrial pressure of 5 mmHg. 15. There is no pericardial effusion. RETIREMENT OFFICER: Trupti Verma RDCS
--- NOTE | 2018-05-22 13:27 | P.CRDCN ---
History of Present Illness History of present illness: This is a pleasant 33-year-old female past medical history significant for asthma, anxiety and GERD. She has also suffered with frequent palpitations in the past. She follows in the office with Dr. Cummings. She underwent an EP study in 2003 that she states was normal, exact details unavailable currently. We have been asked to see her in consultation for chest pain and palpitations. 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 She also describes feeling a pain in her chest in the mid-sternal region that feels like a sharp squeezing sensation with associated shortness of breath. She describes it as a muscle spasm. She denies nausea, vomiting or diaphoresis. In speaking with her she feels like these symptoms have been ongoing intermittently since she underwent a partial hysterectomy in November 2017. Echocardiogram is been obtained and reveals preserved left ventricular systolic function with ejection fraction 60-65%. She states in the past she has taken verapamil which had no effect and did not relief her symptoms in the past. In the office in 2015 she underwent a 24-hour Holter monitor which was unremarkable with no evidence of arrhythmia an echocardiogram that was normal. EKG reveals sinus mechanism with non-specific ST abnormalities inferiorly. Compared to old EKG's these findings were present in 2016 as well. Chest x-ray is negative for an acute cardiopulmonary process. CTA chest negative for pulmonary embolism. Laboratory data reviewed, WBC 3.2, hemoglobin 13.7, d-dimer 0.24, sodium 142, potassium 4.2, magnesium 1.8, creatinine 0.74, cardiac enzymes negative 1. TSH checked 05/03/2018 was 0.98 with a free T4 of 1.2. At the time of my exam: CONSTITUTIONAL: Denies fever. Denies chills. EYES: Denies blurred vision. Denies vision changes. Denies eye pain. EARS, NOSE, MOUTH & THROAT: Denies headache. Denies sore throat. Denies ear pain. CARDIOVASCULAR: Denies chest pain. Denies shortness of breath. Denies orthopnea. Denies PND. Denies palpitations. RESPIRATORY: Denies cough. GASTROINTESTINAL: Denies abdominal pain. Denies diarrhea. Denies constipation. Denies nausea. Denies vomiting. MUSCULOSKELETAL: Denies myalgias. INTEGUMENTARY: Denies pruitis. Denies rash. NEUROLOGIC: Denies numbness. Denies tingling. Denies weakness. PSYCHIATRIC: Denies anxiety. Denies depression. ENDOCRINE: Denies fatigue. Denies weight change. Denies polydipsia. Denies polyurina. GENITOURINARY: Denies burning, hematuria or urgency with micturation. HEMATOLOGIC: Denies history of anemia. Denies bleeding. Blood pressure 98/82 heart rate 75 afebrile maintaining oxygen saturation on room air GENERAL: This is a 33-year-old female in no apparent distress at the time of my examination. HEENT: Head is atraumatic, normocephalic. Pupils are equal, round. Sclerae anicteric. Conjunctivae are clear. Mucous membranes of the mouth are moist. Neck is supple. There is no jugular venous distention. No carotid bruit is heard. LUNGS: Clear to auscultation no wheezes, rales or rhonchi. No chest wall tenderness is noted on palpation or with deep breathing. HEART: Regular rate and rhythm without murmurs, rubs or gallops. S1 and S2 heard. ABDOMEN: Soft, nontender. Bowel sounds are heard. No organomegaly noted. EXTREMITIES: No evidence of peripheral edema and no calf tenderness noted. VASCULAR: Radial and dorsalis pedis pulses palpated, no evidence of clubbing. NEUROLOGIC: Patient is awake, alert and oriented x3. ASSESSMENT Chest pain, atypical for angina. Palpitations PLAN Continue to obtain serial cardiac enzymes to rule out an acute coronary event. Check for orthostatic changes. Ongoing observation on telemetry for an acute arrhythmia. Repeat EKG in the morning. NPO after midnight for possible exercise stress test to assess for arrhythmia at peak exercise. Further recommendations to follow based on clinical course. Thank you kindly for this consultation. Nurse Practitioner note has been reviewed, I agree with a documented findings and plan of care. Patient was seen and examined. Past Medical History Past Medical History: Asthma, GERD/Reflux Additional Past Medical History / Comment(s): Tachycardia, endometriosis, iron deficiency anemia, frequent UTIs History of Any Multi-Drug Resistant Organisms: None Reported Past Surgical History: Section, Cholecystectomy, Heart Catheterization , Hysterectomy, Tubal Ligation, Uterine Ablation Additional Past Surgical History / Comment(s): LAPAROSCOPY X2, EGD, LEEP procedure, 3 c-sections, wisdom teeth 2009 Past Anesthesia/Blood Transfusion Reactions: Motion Sickness, Postoperative Nausea & Vomiting (PONV) Smoking Status: Never smoker - Past Family History Mother Family Medical History: CVA/TIA, Hyperlipidemia, Hypertension, Musculoskeletal Disorder, Neurologic Disorder Additional Family Medical History / Comment(s): CVA and multiple sclerosis. Father Family Medical History: CVA/TIA, Hyperlipidemia Additional Family Medical History / Comment(s): CVA Medications and Allergies Home Medications Medication Instructions Recorded Confirmed Type Albuterol Inhaler [Ventolin Hfa 1 - 2 puff INHALATION RT-QID PRN 09/26/16 History Inhaler] Ipratropium-Albuterol Nebulize 3 ml INHALATION RT-Q6H PRN 11/14/17 05/22/18 History [Duoneb 0.5 mg-3 mg/3 ml Soln] Cholecalciferol (Vitamin D3) 2,000 unit PO HS 05/22/18 05/22/18 History [Vitamin D3] Venlafaxine HCl ER [Effexor XR] 37.5 mg PO HS 05/22/18 05/22/18 History Allergies Allergy/AdvReac Type Severity Reaction Status Date / Time amoxicillin trihydrate Allergy Rash/Hives Verified 05/22/18 06:59 [From Augmentin] cefaclor [From Ceclor] Allergy Rash/Hives Verified 05/22/18 06:59 latex Allergy Rash/Hives Verified 05/22/18 06:59 nitrofurantoin Allergy Rash/Hives Verified 05/22/18 06:59 [From Macrobid] nitrofurantoin Allergy Rash/Hives Verified 05/22/18 06:59 macrocrystalline [From Macrobid] potassium clavulanate Allergy Rash/Hives Verified 05/22/18 06:59 [From Augmentin] Sulfa (Sulfonamide Allergy Rash/Hives Verified 05/22/18 06:59 Antibiotics) Physical Exam Vitals: Vital Signs Temp Pulse Pulse Pulse Resp BP BP 05/22/18 12:44 98.7 F 75 18 98/82 05/22/18 12:15 98.7 F 63 18 106/70 05/22/18 12:06 75 17 98/82 05/22/18 12:00 75 101 H 63 18 98/82 05/22/18 11:30 72 19 05/22/18 11:00 80 20 109/75 05/22/18 10:30 73 16 102/76 05/22/18 10:00 67 16 113/85 05/22/18 09:30 75 18 05/22/18 09:00 116/82 05/22/18 08:30 75 17 104/78 05/22/18 08:00 114/76 05/22/18 07:30 67 16 109/78 05/22/18 07:01 101 H 05/22/18 07:00 98 15 112/77 05/22/18 06:30 94 19 107/79 05/22/18 06:27 91 21 05/22/18 06:07 98.5 F 111 H 20 108/76 Pulse Ox 05/22/18 12:44 99 05/22/18 12:15 99 05/22/18 12:06 97 05/22/18 12:00 97 05/22/18 11:30 97 05/22/18 11:00 05/22/18 10:30 99 05/22/18 10:00 99 05/22/18 09:30 99 05/22/18 09:00 05/22/18 08:30 100 05/22/18 08:00 05/22/18 07:30 100 05/22/18 07:01 05/22/18 07:00 100 05/22/18 06:30 100 05/22/18 06:27 99 05/22/18 06:07 98 Intake and Output 05/21/18 05/22/18 05/22/18 22:59 06:59 14:59 Other: Voiding Method Toilet Weight 52.163 kg Results 05/22/18 06:55 05/22/18 06:55 Cardiac Enzymes 05/22/18 05/22/18 Range/Units 06:55 06:55 AST 16 (14-36) U/L CK-MB (CK-2) 0.2 (0.0-2.4) ng/mL Troponin I <0.012 (0.000-0.034) ng/mL Coagulation 05/22/18 Range/Units 06:55 PT 10.6 (9.0-12.0) sec APTT 25.5 (22.0-30.0) sec CBC 05/22/18 Range/Units 06:55 WBC 3.2 L (3.8-10.6) k/uL RBC 4.45 (3.80-5.40) m/uL Hgb 13.7 (11.4-16.0) gm/dL Hct 39.8 (34.0-46.0) % Plt Count 151 (150-450) k/uL Comprehensive Metabolic Panel 05/22/18 Range/Units 06:55 Sodium 142 (137-145) mmol/L Potassium 4.2 (3.5-5.1) mmol/L Chloride 108 H (98-107) mmol/L Carbon Dioxide 25 (22-30) mmol/L BUN 12 (7-17) mg/dL Creatinine 0.74 (0.52-1.04) mg/dL Glucose 116 H (74-99) mg/dL Calcium 9.5 (8.4-10.2) mg/dL AST 16 (14-36) U/L ALT 24 (9-52) U/L Alkaline Phosphatase 41 (38-126) U/L Total Protein 7.3 (6.3-8.2) g/dL Albumin 4.5 (3.5-5.0) g/dL Current Medications Generic Name Dose Route Start Last Admin Trade Name Freq PRN Reason Stop Dose Admin Acetaminophen 650 mg 05/22/18 11:06 Tylenol Tab PO Q6HR PRN Mild Pain or Fever > 100.5 Albuterol/Ipratropium 3 ml 05/22/18 10:31 Duoneb 0.5 Mg-3 Mg/3 Ml Soln INHALATION RT-Q6H PRN Dyspnea Sodium Chloride 1,000 mls @ 100 mls/hr 05/22/18 10:00 Saline 0.9% IV .Q10H LUCY Naloxone HCl 0.2 mg 05/22/18 09:55 Narcan IV Q2M PRN Opioid Reversal Ondansetron HCl 4 mg 05/22/18 09:55 Zofran IVP Q8HR PRN Nausea And Vomiting Venlafaxine HCl 37.5 mg 05/22/18 21:00 Effexor Xr PO HS LUCY Intake and Output 05/21/18 05/22/18 05/22/18 22:59 06:59 14:59 Other: Voiding Method Toilet Weight 52.163 kg 05/22/18 06:55 05/22/18 06:55
[2018-05-22 13:51] LABS: Creatine Kinase 35 U/L (30-135)
[2018-05-22 14:05] LABS: Creatine Kinase MB <0.2 ng/mL (0.0-2.4); Troponin I <0.012 ng/mL (0.000-0.034)
[2018-05-22 19:37] LABS: Creatine Kinase 35 U/L (30-135)
[2018-05-22 19:48] LABS: Creatine Kinase MB <0.2 ng/mL (0.0-2.4); Troponin I <0.012 ng/mL (0.000-0.034)
[2018-05-22] MEDS: SODIUM CHLORIDE 0.9% 1,000 ML IV SCH ×2 (19:49→20:23)
[2018-05-22 19:59] VITALS: RESP 16
[2018-05-22] MEDS ORDERED: VENLAFAXINE HCL ER 37.5 MG CAP PO SCH (21:00)
[2018-05-23] MEDS: SODIUM CHLORIDE 0.9% 1,000 ML IV SCH (05:51)
--- NOTE | 2018-05-23 10:52 | P.PN ---
Subjective This is a pleasant 33-year-old female past medical history significant for asthma, anxiety and GERD. She has also suffered with frequent palpitations in the past. She follows in the office with Dr. Cummings. She underwent an EP study in 2003 that she states was normal, exact details unavailable currently. She is seen and examined this morning in no acute distress. She states she felt an episode of palpitations this morning around 0500 when she first woke up. Telemetry tracings at that time were unremarkable. She has been up and walking the halls and has continued to notice increased shortness of breath. No further symptoms of chest discomfort. Echo obtained revealed preserved left ventricular systolic function with ejection fraction 60- 65%. Laboratory data reviewed, cardiac enzymes negative 3. Blood pressure 99/ 64 heart rate 67 afebrile maintaining oxygen saturation on room air. GENERAL: This is a 33-year-old female in no apparent distress at the time of my examination. HEENT: Head is atraumatic, normocephalic. Pupils are equal, round. Sclerae anicteric. Conjunctivae are clear. Mucous membranes of the mouth are moist. Neck is supple. There is no jugular venous distention. No carotid bruit is heard. LUNGS: Clear to auscultation no wheezes, rales or rhonchi. No chest wall tenderness is noted on palpation or with deep breathing. HEART: Regular rate and rhythm without murmurs, rubs or gallops. S1 and S2 heard. EXTREMITIES: No evidence of peripheral edema and no calf tenderness noted. ASSESSMENT Chest pain, atypical for angina. Palpitations PLAN Proceed with exercise stress test. If normal she is stable from a cardiac perspective. Follow up with Dr. Cummings up on discharge for outpatient event monitoring. Nurse Practitioner note has been reviewed, I agree with a documented findings and plan of care. Patient was seen and examined. Objective - Vital Signs Vital signs: Vital Signs Temp 98.0 F 05/23/18 07:30 Pulse 67 05/23/18 08:00 Resp 16 05/23/18 08:00 BP 99/64 05/23/18 07:30 Pulse Ox 100 05/23/18 07:30 Intake & Output 05/22/18 05/23/18 05/23/18 18:59 06:59 18:59 Intake Total 472 Balance 472 Intake: Oral 472 Other: Voiding Method Toilet Toilet Toilet # Voids 3 1 - Labs CBC & Chem 7: 05/22/18 06:55 05/22/18 06:55
[2018-05-23 12:10] VITALS: BP 101/66; PULSE 82; TEMP 98.6
--- NOTE | 2018-05-23 12:42 | EST ---
EXERCISE STRESS AGE: 33 SEX: F HT: 59" WT: 115 PROTOCOL: Stress Test STAGE: 3 DURATION OF EXERCISE: 10:00 HEART RATE REST: 78 BLOOD PRESSURE REST: 127/89 MAXIMUM HEART RATE ACHIEVED: 162 MAXIMUM BLOOD PRESSURE: 130/85 85% MPHR: 161 100% MPHR: 189 METS: 11 INDICATIONS: Chest pain/shortness of breath CLINICAL INFORMATION: Baseline EKG shows sinus rhythm, normal axis, normal intervals. Patient exercised on Sj protocol for a total of 10 minutes achieving 11 METS, 85% of predicted maximum heart rate without chest pain or diagnostic ST-segment depression. CONCLUSION: 1. Good exercise tolerance. 2. Negative stress test by EKG criteria. MMODL / IJN: [id number] /
--- NOTE | 2018-05-23 13:25 | P.DS ---
Providers Date of admission: 05/22/18 09:57 Expected date of discharge: 05/23/18 Attending physician: Chelsi Antony MD Consults: 05/22/18 09:56 Consult Physician Routine Consulting Provider: Karina Mayer Consult Reason/Comments: Near-syncope, palpitations Do you want consulting provider notified?: Yes Primary care physician: [facility] Course: 33-year-old female with PMH of anxiety, endometriosis and asthma presents the ED for chest pain, palpitations and shortness of breath. Patient reports chest pain, that is been ongoing for the past 2 weeks. Pain has been intermittent, occurring over 10 times daily. Pain last for about 1 minute each time. Patient reports the pain to be spastic and sharp in nature. Pain is 8 out of 10 in severity when it occurs. Pain is aggravated with exertion and is associated with some shortness of breath and palpitations. Patient reports that the pain has been unchanged for the past 2 weeks, worsened last night. Patient reports worsening of her chest pain, dizziness and palpitations when bending over to drop blood. 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 Patient reports a coronary angiogram in 2003 which was within normal limits and an echocardiogram 2 years ago. She endorses headache, associated with sinus inflammation. She denies any lower extremity edema, fever, cough, changes in urination or bowel habits. She does report nausea but no vomiting. She does not consume caffeinated beverages. Patient does report a history of anxiety, well-controlled with medications. In the ED, CTA of the chest was negative for PE. Initial troponin was less than 0.012, EKG showing normal sinus rhythm. Patient is admitted for chest pain , rule out acute coronary syndrome. Cardiology is on consult. Echocardiogram showed an ejection fraction between 60 and 65%. Cardiology was consulted and recommended a stress test. Stress test was negative. Patient was cleared for discharge from cardiology perspective. Patient was seen and examined prior to discharge. No acute events overnight. Patient reports resolution of chest pain. No chest pain, shortness breath or palpitations. No dizziness. General: [non toxic], [no distress], [appears at stated age] Derm: [warm], [dry] Head: [atraumatic], [normocephalic], [symmetric] Eyes: [EOMI], [no lid lag], [anicteric sclera] Mouth: [no lip lesion], [mucus membranes moist] Cardiovascular: [S1S2 reg], [no murmur], [positive DP pulse bilateral] Lungs: [CTA bilateral], [no rhonchi, no rales] , [no accessory muscle use] Abdominal: [soft], [ nontender to palpation], [no guarding], [no appreciable organomegaly] Ext: [no gross muscle atrophy], [no edema], [no contractures] Neuro: [no focal neuro deficits] Psych: [Alert], [oriented], [appropriate affect] Assessment and Plan 1. Near syncopal episode 2. Asthma 3. Anxiety 4. DVT and GI prophylaxis 1. Orthostatic vs. Cardiac vs. Vasovagal. Troponin < 0.012 3, EKG showing normal sinus rhythm. CTA Chest rules out PE. CXR negative. Orthostats positive. Echocardiogram within normal limits. Telemetry monitoring. Fall precautions. Cardiology consulted, recommended stress test, negative. 2. Stable. DuoNeb PRN for SOB/wheezing. 3. Continue Effexor 37.5 mg PO QHS. 4. SCD boots only. Patient admitted for near syncopal episode. Orthostats positive, received fluids. Cardiology consulted, stress test negative. Pertinent Studies: Echo Patient Condition at Discharge: Stable Plan - Discharge Summary Discharge Rx Participant: No New Discharge Prescriptions: Continue Albuterol Inhaler [Ventolin Hfa Inhaler] 1 - 2 puff INHALATION RT-QID PRN PRN Reason: Shortness Of Breath Venlafaxine HCl ER [Effexor XR] 37.5 mg PO HS Cholecalciferol (Vitamin D3) [Vitamin D3] 2,000 unit PO HS Discontinued Ipratropium-Albuterol Nebulize [Duoneb 0.5 mg-3 mg/3 ml Soln] 3 ml INHALATION RT-Q6H PRN PRN Reason: Dyspnea Discharge Medication List Albuterol Inhaler [Ventolin Hfa Inhaler] 1 - 2 puff INHALATION RT-QID PRN [History] Cholecalciferol (Vitamin D3) [Vitamin D3] 2,000 unit PO HS 05/22/18 [History] Venlafaxine HCl ER [Effexor XR] 37.5 mg PO HS 02/11/19 [History] Follow up Appointment(s)/Referral(s): Silverio Cummings MD [STAFF PHYSICIAN] - 2 Weeks (for event monitor) Kathy Marcano MD [Primary Care Provider] - 1-2 days Activity/Diet/Wound Care/Special Instructions: Diet: Regular Follow up Cardiology Follow up PCP Please take all medications. Discharge Disposition: HOME SELF-CARE
== END 2018-05-23 14:25 | disposition home or self-care (01) ==
LOC: EC 06:04 → 1SOBS 09:57
PROVIDERS: ADMIT Family Medicine; ATTEND Family Medicine
DX: R07.89 Other chest pain (principal); R55 Syncope and collapse; R00.0 Tachycardia, unspecified; R00.2 Palpitations; R42 Dizziness and giddiness; J45.909 Unspecified asthma, uncomplicated; K21.9 Gastro-esophageal reflux disease without esophagitis; F41.9 Anxiety disorder, unspecified; J32.9 Chronic sinusitis, unspecified; R11.0 Nausea; D50.9 Iron deficiency anemia, unspecified; Z79.899 Other long term (current) drug therapy; Z88.1 Allergy status to other antibiotic agents; Z91.040 Latex allergy status; Z88.0 Allergy status to penicillin; Z88.2 Allergy status to sulfonamides; Z88.8 Allergy status to other drugs, medicaments and biological substances; Z87.440 Personal history of urinary (tract) infections; Z90.49 Acquired absence of other specified parts of digestive tract; Z90.711 Acquired absence of uterus with remaining cervical stump; Z87.42 Personal history of other diseases of the female genital tract; Z82.3 Family history of stroke; Z82.0 Family history of epilepsy and other diseases of the nervous system; Z83.49 Family history of other endocrine, nutritional and metabolic diseases; Z82.69 Family history of other diseases of the musculoskeletal system and connective tissue; Z82.49 Family history of ischemic heart disease and other diseases of the circulatory system
CPT/HCPCS: 96360; 96361; 99285; 36415; 93005; 93017; 93306; 85379; 80053; 82550; 82553; 83735; 84484; 85025; 85610; 85730; 71046; 71275; G0378 ×2; Q9967

== ENCOUNTER 2018-06-07 17:15 | Emergency (ER) | payer MEDICAID, OTHER ==
[2018-06-07 17:39] VITALS: BP 114/76; PULSE 66; RESP 16; TEMP 98
--- NOTE | 2018-06-07 19:07 | ED ---
General Adult HPI - General Chief complaint: Extremity Injury, Upper Stated complaint: Finger injury Time Seen by Provider: 06/07/18 18:30 Source: patient, RN notes reviewed Mode of arrival: ambulatory Limitations: no limitations - History of Present Illness Initial comments: 33-year-old female presents to the emergency department for pain in the right hand times one hour. Patient states she was at home when she accidentally got her finger stuck in the hinge side of a door. Patient states she is having pain in the second third and fourth distal aspects of the digits of the right hand. Patient denies any other injuries. States she is having shooting pain up the right hand. Denies loss of sensation in the right hand and distal fingertips.Patient has no other complaints at this time including shortness of breath, chest pain, abdominal pain, nausea or vomiting, headache, or visual changes. - Related Data Home Medications Medication Instructions Recorded Confirmed Albuterol Inhaler [Ventolin Hfa 1 - 2 puff INHALATION RT-QID PRN 09/26/16 Inhaler] Cholecalciferol (Vitamin D3) 2,000 unit PO HS 05/22/18 05/22/18 [Vitamin D3] Venlafaxine HCl ER [Effexor XR] 37.5 mg PO HS 05/22/18 05/22/18 Allergies Allergy/AdvReac Type Severity Reaction Status Date / Time amoxicillin trihydrate Allergy Rash/Hives Verified 06/07/18 17:40 [From Augmentin] cefaclor [From Ceclor] Allergy Rash/Hives Verified 06/07/18 17:40 latex Allergy Rash/Hives Verified 06/07/18 17:40 nitrofurantoin Allergy Rash/Hives Verified 06/07/18 17:40 [From Macrobid] nitrofurantoin Allergy Rash/Hives Verified 06/07/18 17:40 macrocrystalline [From Macrobid] potassium clavulanate Allergy Rash/Hives Verified 06/07/18 17:40 [From Augmentin] Sulfa (Sulfonamide Allergy Rash/Hives Verified 06/07/18 17:40 Antibiotics) Review of Systems ROS Statement: Those systems with pertinent positive or pertinent negative responses have been documented in the HPI. ROS Other: All systems not noted in ROS Statement are negative. Past Medical History Past Medical History: Asthma, GERD/Reflux Additional Past Medical History / Comment(s): Tachycardia, endometriosis, iron deficiency anemia, frequent UTIs History of Any Multi-Drug Resistant Organisms: None Reported Past Surgical History: Section, Cholecystectomy, Heart Catheterization , Hysterectomy, Tubal Ligation, Uterine Ablation Additional Past Surgical History / Comment(s): LAPAROSCOPY X2, EGD, LEEP procedure, 3 c-sections, wisdom teeth 2009 Past Anesthesia/Blood Transfusion Reactions: Motion Sickness, Postoperative Nausea & Vomiting (PONV) Past Psychological History: Anxiety Smoking Status: Never smoker - Past Family History Mother Family Medical History: CVA/TIA, Hyperlipidemia, Hypertension, Musculoskeletal Disorder, Neurologic Disorder Additional Family Medical History / Comment(s): CVA and multiple sclerosis. Father Family Medical History: CVA/TIA, Hyperlipidemia Additional Family Medical History / Comment(s): CVA General Exam Limitations: no limitations General appearance: alert, in no apparent distress Head exam: Present: atraumatic, normocephalic, normal inspection Eye exam: Present: normal appearance, PERRL, EOMI. Absent: scleral icterus, conjunctival injection, periorbital swelling ENT exam: Present: normal exam, mucous membranes moist Neck exam: Present: normal inspection, full ROM. Absent: tenderness, meningismus, lymphadenopathy Respiratory exam: Present: normal lung sounds bilaterally. Absent: respiratory distress, wheezes, rales, rhonchi, stridor Cardiovascular Exam: Present: regular rate, normal rhythm, normal heart sounds. Absent: systolic murmur, diastolic murmur, rubs, gallop, clicks Extremities exam: Present: full ROM (Limited flexion of the second third and fourth DIP joints in the right hand), tenderness (Tenderness throughout the distal phalanx of the second third and fourth right fingers), normal capillary refill (Capillary refill less than 2 seconds in the right upper extremity), other (Patient has very minimal ecchymosis noted to the middle of the right third nail bed overlying crease. Does not require drainage whatsoever at this time. No ecchymosis of the second and fourth digits.) Neurological exam: Present: alert, oriented X3, CN II-XII intact Psychiatric exam: Present: normal affect, normal mood Course Vital Signs 06/07/18 17:38 Temperature 98 F Pulse Rate 66 Respiratory 16 Rate Blood Pressure 114/76 O2 Sat by Pulse 100 Oximetry Medical Decision Making - Medical Decision Making Neurovascular intact in all digits of the right hand. No significant ecchymosis noted. No indication for trephination. X-ray of the right hand is negative. Patient will follow up with primary care orthopedics. Discussed that if patient has significant bruising noted under the nail she can return here or primary care for trephination. Discussed Motrin and Tylenol for pain. Discussed rest ice and elevate. Discussed possible need of repeat x-rays if pain is not getting better in the next 7-10 days. Patient will return here if she has any worsening symptoms. Disposition Clinical Impression: Finger pain, right Disposition: HOME SELF-CARE Condition: Good Instructions (If sedation given, give patient instructions): Finger Fracture ( ED) Additional Instructions: Please take Motrin or Tylenol for pain. Please rest ice and elevate the right hand. If symptoms do not resolve in the next 7-10 days you may need repeat x- rays. Follow-up with orthopedics or primary care. Return here if you have any worsening symptoms. Is patient prescribed a controlled substance at d/c from ED?: No Referrals: Kathy Marcano MD [Primary Care Provider] - 1-2 days Landon Biswas MD [STAFF PHYSICIAN] - 1-2 days Time of Disposition: 19:14
--- NOTE | 2018-06-07 19:09 | XR ---
EXAMINATION TYPE: XR hand complete RT DATE OF EXAM: 06/07/2018 COMPARISON: NONE HISTORY: Third digit pain TECHNIQUE: 3 views FINDINGS: I see no fracture nor dislocation. Joint spaces are normal. Metacarpals are intact. IMPRESSION: Negative right hand exam.
[2018-06-07] MEDS ORDERED: IBUPROFEN 600 MG TAB PO STA (19:20)
== END 2018-06-07 19:28 | disposition home or self-care (01) ==
LOC: EC 17:15
DX: M79.644 Pain in right finger(s) (principal); S60.031A Contusion of right middle finger without damage to nail, initial encounter; F41.9 Anxiety disorder, unspecified; Z79.899 Other long term (current) drug therapy; Z88.0 Allergy status to penicillin; Z88.1 Allergy status to other antibiotic agents; Z88.2 Allergy status to sulfonamides; Z91.040 Latex allergy status; W23.0XXA Caught, crushed, jammed, or pinched between moving objects, initial encounter; Y92.009 Unspecified place in unspecified non-institutional (private) residence as the place of occurrence of the external cause
CPT/HCPCS: 99283

== ENCOUNTER → 2019-03-15 | Outpatient (CLI) | payer BC ==
--- NOTE | 2019-03-15 17:54 | CT ---
EXAMINATION TYPE: CT abdomen pelvis w con DATE OF EXAM: 03/15/2019 COMPARISON: 01/19/2018 HISTORY: Right lower quadrant abdominal pain and fever. CT DLP: 416 mGycm Automated exposure control for dose reduction was used. TECHNIQUE: Helical acquisition of images was performed from the lung bases through the pelvis. CONTRAST: Performed with Oral Contrast and with IV Contrast, patient injected with 100ml mL of Isovue 300. FINDINGS: LUNG BASES: No significant abnormality is appreciated. LIVER/GB: No significant abnormality is appreciated. PANCREAS: No significant abnormality is seen. SPLEEN: No significant abnormality is seen. ADRENALS: No significant abnormality is seen. KIDNEYS: No significant abnormality is seen. PERITONEAL CAVITY: No pneumoperitoneum or fluid. RETROPERITONEAL ADENOPATHY: None visualized REPRODUCTIVE ORGANS: No significant abnormality is seen URINARY BLADDER: No significant abnormality is seen. PELVIC ADENOPATHY: None visualized. OSSEOUS STRUCTURES: No significant abnormality is seen. BOWEL: No bowel obstruction. The appendix is in the right lower quadrant, in retrocecal position; ap pendix has normal appearance. OTHER: Within the lower right pelvis, related to the round ligament, is a cystlike rounded 2 cm focus , within a 4 cm mean diameter low-attenuation oval mass, which appears to represent the right ovary, somewhat more anteriorly and superiorly located than is most often seen. If clinically indicated, thi s can be further characterized with pelvic MRI. IMPRESSION: NO DEFINITE ACUTE PROCESS. RIGHT OVARIAN COMMENTS ABOVE.
== END | disposition home or self-care (01) ==
LOC: RADCTMAIN 15:18
PROVIDERS: ATTEND Family Medicine
DX: N83.201 Unspecified ovarian cyst, right side (principal); Z88.0 Allergy status to penicillin; Z88.2 Allergy status to sulfonamides; Z91.040 Latex allergy status; Z88.8 Allergy status to other drugs, medicaments and biological substances
CPT/HCPCS: 74177; Q9967

== ENCOUNTER → 2020-06-13 | Outpatient (CLI) | payer BC, OTHER ==
--- NOTE | 2020-06-13 14:31 | US ---
EXAMINATION TYPE: US venous doppler duplex LE RT DATE OF EXAM: 06/13/2020 1:13 PM COMPARISON: US 2016 CLINICAL HISTORY: M79.661 Pain in right lower leg, R22.41 Swelling. Right foot swelling SIDE PERFORMED: Right TECHNIQUE: The lower extremity deep venous system is examined utilizing real time linear array sonog chao with graded compression, doppler sonography and color-flow sonography. VESSELS IMAGED: Common Femoral Vein Deep Femoral Vein Greater Saphenous Vein * Femoral Vein Popliteal Vein Small Saphenous Vein * Proximal Calf Veins (* superficial vessels) Right Leg: Appears negative for DVT IMPRESSION: 1. Right lower extremity ultrasound negative for deep venous thrombosis.
== END ==
LOC: RADUSWWP 12:49
PROVIDERS: ATTEND Family Medicine
DX: M79.661 Pain in right lower leg (principal); R22.41 Localized swelling, mass and lump, right lower limb

== ENCOUNTER → 2020-08-22 | Outpatient (CLI) | payer BC, OTHER ==
--- NOTE | 2020-08-22 19:24 | CT ---
EXAMINATION TYPE: CT sinus wo con DATE OF EXAM: 08/22/2020 COMPARISON: None HISTORY: sinusitis CT DLP: 665 mGycm. Automated Exposure Control for Dose Reduction was Utilized. TECHNIQUE: CT scan of the sinuses is performed without contrast, axial images are obtained, coronal r eformatted images are also reviewed. FINDINGS: The paranasal sinuses including the frontal, ethmoid, sphenoid, and maxillary sinuses bila terally are well-aerated without abnormal opacification. The ostiomeatal complex is patent bilateral ly on the coronal images. Visualized portion of mastoid air cells show no abnormal opacification. The globes are intact bilate rally. Abnormal attenuation adjacent to the right maxilla may be related to previous surgery appears hyperdense correlate for previous surgical procedure. IMPRESSION: The sinuses are clear and the ostiomeatal complex is patent bilaterally. Slight nasal se ptal deviation. Correlate for previous surgery involving the right maxilla a large area of hyperdensi ty seen anterior to the maxilla.
== END | disposition home or self-care (01) ==
LOC: RADCTMAIN 13:27
PROVIDERS: ATTEND Otolaryngology
DX: J34.2 Deviated nasal septum (principal)
CPT/HCPCS: 70486

== ENCOUNTER 2020-10-01 08:17 | Day surgery (SDC) | payer BC, OTHER ==
[2020-09-30 08:24] VITALS: BMI 26.4
[~2020-10-01 08:17] MED LIST changes: -DEXAMETHASONE SOD PHOSPHATE 10 MG/ML 1 ML VIAL IV ONE; +LACTATED RINGERS 1,000 ML IV SCH; +LIDOCAINE 1% (10MG/ML) FOR IV START INTRADERMA PRN; -MIDAZOLAM 2 MG/2 ML VIAL IV PRN; -ONDANSETRON 4 MG/2 ML VIAL IVP ONE; -SCOPOLAMINE 1.5MG/72HR PATCH TRANSDERM ONE; -ceFAZolin IN SWFI 2 GM/20 ML SYRINGE IVP ONE
[2020-10-01 08:57] VITALS: RESP 16; TEMP 97.5
[2020-10-01] MEDS ORDERED: ONDANSETRON 4 MG/2 ML VIAL ONE (09:04)
[2020-10-01] MEDS ORDERED: SCOPOLAMINE 1.5MG/72HR PATCH TRANSDERM ONE (09:07)
[2020-10-01] MEDS ORDERED: ONDANSETRON 4 MG/2 ML VIAL IVP ONE (09:07)
[2020-10-01] MEDS ORDERED: LIDOCAINE 1% INJ 10MG/ML (20 ML MDV) ONE (09:13)
[2020-10-01] MEDS ORDERED: PROPOFOL 10 MG/ML 20 ML VIAL IV ONE (09:13)
--- NOTE | 2020-10-01 09:24 | P.PCN ---
Date of Procedure: 10/01/20 Procedure(s) Performed: BRIEF HISTORY: Patient is a 35-year-old, pleasant, white female scheduled for an upper endoscopy as a part of evaluation of epigastric pain and heartburn and intermittent dysphagia to solids for the last 2 months duration. She is presently on omeprazole 20 mg daily. PROCEDURE PERFORMED: Esophagogastroduodenoscopy with biopsy. PREOPERATIVE DIAGNOSIS: GERD intermittent dysphagia to solids. IV sedation per anesthesia. PROCEDURE: After informed consent was obtained, the patient was brought into the endoscopy unit. IV sedation was administered by Anesthesia under continuous monitoring. Initially the Olympus GIF-140 video endoscope was inserted into the mouth. Esophagus intubated without any difficulty. It was gradually advanced into the stomach and duodenum and carefully examined. The bulb and the second part of the duodenum appeared normal. The scope at this time was withdrawn to the stomach, adequately insufflated with air, and upon careful examination, mucosa of the antrum, had mild gastritis and biopsies were done from this area. The body, cardia and the fundus appeared normal. The scope was then withdrawn into the esophagus. The GE junction was located at 39 cm from the incisors. The esophagus appeared normal. There were no erosions or ulcerations seen , biopsies were done from the mid and distal esophagus and the patient tolerated the procedure well. IMPRESSION: 1. Normal-appearing esophagus with no evidence of esophagitis or esophageal stricture. 2. Minimal antral gastritis. RECOMMENDATIONS: The findings of this examination were discussed with the patient as well as a family. She was advised to follow with the biopsy results and continue with omeprazole 20 mg twice daily and follow antireflux measures..
[2020-10-01 09:43] VITALS: BP 107/71; PULSE 68
== END 2020-10-01 10:10 | disposition home or self-care (01) ==
LOC: ORWHC2ENDO 08:17
PROVIDERS: ATTEND Internal Medicine Gastroenterology
DX: K29.50 Unspecified chronic gastritis without bleeding (principal); K21.00 Gastro-esophageal reflux disease with esophagitis, without bleeding; R00.0 Tachycardia, unspecified; Z87.440 Personal history of urinary (tract) infections; F41.9 Anxiety disorder, unspecified; I49.8 Other specified cardiac arrhythmias; D50.9 Iron deficiency anemia, unspecified; Z87.42 Personal history of other diseases of the female genital tract; Z79.52 Long term (current) use of systemic steroids; Z79.899 Other long term (current) drug therapy; Z88.0 Allergy status to penicillin; Z88.2 Allergy status to sulfonamides; Z88.8 Allergy status to other drugs, medicaments and biological substances; Z88.1 Allergy status to other antibiotic agents; Z91.040 Latex allergy status
CPT/HCPCS: 88305; 88312; 88342; 43239; J2405; J2001; J2704

== ENCOUNTER → 2021-01-01 | Outpatient (CLI) | payer BC, OTHER ==
--- NOTE | 2021-01-01 12:49 | XR ---
EXAM TYPE: LUMBAR SPINE X RAY SERIES COMPARISON: NONE HISTORY: Pain TECHNIQUE: 4 views are submitted. FINDINGS: Alignment is anatomic. The pedicles are intact. The transverse processes are intact. There is no s pondylolysis or spondylolisthesis. Spina bifida occulta lumbosacral junction. Surgical clips are sharon drant. Upper atrophic changes of the thoracolumbar junction. IMPRESSION: 1. Hypertrophic changes thoracolumbar junction. 2. Spina bifida occulta lumbosacral junction.
--- NOTE | 2021-01-01 12:51 | XR ---
EXAMINATION TYPE: XR cervical spine comp DATE OF EXAM: 01/01/2021 COMPARISON: NONE HISTORY: Pain TECHNIQUE: Four views are submitted. FINDINGS: The odontoid is intact. There are no compression deformities. The prevertebral soft tissue structur es are within normal limits. IMPRESSION: 1. No acute process.
== END | disposition home or self-care (01) ==
LOC: RADXRMAIN 12:12
PROVIDERS: ATTEND Nurse Practitioner Family
DX: M89.38 Hypertrophy of bone, other site (principal); Q76.0 Spina bifida occulta
CPT/HCPCS: 72050; 72110

== ENCOUNTER → 2021-08-05 | Outpatient (CLI) | payer BC, OTHER ==
--- NOTE | 2021-08-05 09:14 | CT ---
EXAMINATION TYPE: CT chest wo con DATE OF EXAM: 08/05/2021 COMPARISON: CTA chest May 22, 2018. HISTORY: SOB with history of asthma. CT DLP: 214 mGycm. Automated Exposure Control for Dose Reduction was Utilized. TECHNIQUE: CT scan of the thorax is performed without IV contrast. High resolution protocol with 1 m m sequences obtained in 10 mm interval in supine and prone technique. FINDINGS: LUNGS: The lungs are grossly clear. No obvious mass. There is no pleural effusion or pneumothorax se en. No significant peripheral reticulation or fibrotic change. No bronchiectasis. No honeycombing is evident. MEDIASTINUM: Lack of IV contrast and technique are noted to limit evaluation for mediastinal and debbie cially hilar adenopathy. There are no definitive greater than 1 cm hilar or mediastinal lymph nodes. No cardiomegaly or pericardial effusion is seen. OTHER: Cholecystectomy clips are redemonstrated. IMPRESSION: No significant acute or chronic pulmonary process.
== END | disposition home or self-care (01) ==
LOC: RADCTMAIN 07:54
PROVIDERS: ATTEND Internal Medicine Critical Care Medicine
DX: J45.909 Unspecified asthma, uncomplicated (principal)
CPT/HCPCS: 71250